=== PATIENT | male | born 1945 | race Caucasian/White ===

== ENCOUNTER 2023-08-30 12:40 | Inpatient (IN) | payer MEDICARE, OTHER, SELFPAY ==
[2023-08-30] VITALS (20 sets, daily range): BP systolic 74–113; BP diastolic 46–83; PULSE 101–127; RESP 24–33; TEMP 36.4–38.4; O2SAT 86–95; BMI 32.4
--- NOTE | 2023-08-30 13:13 | EKG12_ITS ---
Test Reason : FEVER Blood Pressure : / mmHG Vent. Rate : 126 BPM Atrial Rate : 126 BPM P-R Int : 176 ms QRS Dur : 132 ms QT Int : 310 ms P-R-T Axes : 000 014 170 degrees QTc Int : 448 ms Sinus tachycardia Left bundle branch block Abnormal ECG Confirmed by FABIAN NICOLE MD ([id number]), department editor STEPHANIE RAMIREZ ([id number]) on 09/07/2023 9:21:28 AM Referred By: CUATE Confirmed By:FABIAN NICOLE MD
--- NOTE | 2023-08-30 13:25 | EX.ED.DYSGE1 ---
HPI History of Present Illness Chief Complaint: Fever Informant: patient and spouse/S.O. Onset/Context/Timing Onset: Days (2) Context: Gradual Onset Timing: Continuous Associated Symptoms Associated Symptoms ED: cough Narrative Narrative: 77-year-old for 2 days has had vomiting, diarrhea, cough, and shortness of breath. He is not sure which came first, the vomiting or the cough/shortness of breath. is here to help and they are both not sure. He has had fevers at home. Also has had some headaches that started later, no sudden onset or thunderclap, and pain in the back of his neck that hurts more to move. He is feeling very malaised and weak all over. Denies any chest discomfort. No leg edema. Presents hypoxic to triage at 88% on room air he is not on home oxygen. Oxygen applied. No recent travel out of the area. No known sick contacts that they are aware of. [facility] Medical History Diabetes GERD (gastroesophageal reflux disease) Hypertension Home Medications atorvastatin 80 mg tablet 80 mg PO DAILY 08/30/23 [History Last Taken 08/30/23] glimepiride 4 mg tablet 4 mg PO DAILY 08/30/23 [History Last Taken 08/30/23] liraglutide 0.6 mg/0.1 mL (18 mg/3 mL) subcutaneous pen injector 1.2 mg subcut DAILY 08/30/23 [History Last Taken 08/30/23] metformin 1,000 mg tablet 1,000 mg PO BID 08/30/23 [History Last Taken 08/30/23] multivitamin (Daily Value tablet) 1 tab PO DAILY 08/30/23 [History Last Taken 08/30/23] omega-3 fatty acids 1,000 mg capsule (Super [place]-3) 1,000 mg PO DAILY 08/30/23 [History Last Taken 08/30/23] omeprazole 20 mg capsule,delayed release 20 mg PO DAILY 08/30/23 [History Last Taken 08/30/23] pioglitazone 45 mg tablet 45 mg PO DAILY 08/30/23 [History Last Taken 08/30/23] risankizumab-rzaa 150 mg/mL subcutaneous syringe (Skyrizi) 150 mg subcut .COMPLEX 08/30/23 [History Last Taken 06/17/23] tamsulosin 0.4 mg capsule 0.4 mg PO DAILY 08/30/23 [History Last Taken 08/29/23] valsartan 160 mg tablet (Diovan) 160 mg PO DAILY 08/30/23 [History Last Taken 08/30/23] Allergy/AdvReac Type Severity Reaction Status Date / Time No Known Allergies Allergy Verified 08/30/23 13:46 Social History Smoking Status: Never smoker ROS ROS ED Constitutional Constitutional ED: Reports body ache(s), chills, fatigue, fever(s), headache(s) and malaise Eyes Eyes: Denies change in vision or diplopia ENT ENT ED: Denies rhinorrhea or sore throat Cardiovascular Cardiovascular: Denies chest pain or palpitations Respiratory/Chest Respiratory/Chest: Reports cough, dyspnea and dyspnea on exertion Gastrointestinal Gastrointestinal: Reports diarrhea, nausea and vomiting; Denies abdominal pain Genitourinary Genitourinary ED: Denies dysuria or hematuria Musculoskeletal Musculoskeletal: Reports myalgias and neck pain; Denies back pain Integumentary Denies abscess or rash Neurologic Neurologic: Reports headache(s); Denies confusion, paresthesias, seizures, syncope or weakness Psychiatric Psychiatric: Denies anxiety or suicidal thoughts EXAM Physical Exam Const Vital Signs: 08/30/23 12:41 08/30/23 13:00 08/30/23 13:02 Temperature 97.5 F L Temperature Source Temporal Pulse Rate 127 H 126 H Respiratory Rate 24 H 32 H Respiratory Effort Short of Breath Accessory Muscle Use Respiratory Pattern Tachypnea Blood Pressure 109/81 H 97/53 L Blood Pressure Mean 90 67 Pulse Ox 88 93 Oxygen Delivery Method Room Air Nasal Cannula Oxygen Flow Rate (L/min) 2 08/30/23 13:40 08/30/23 14:29 Temperature 101.1 F H Temperature Source Oral Pulse Rate 124 H Respiratory Rate 33 H Respiratory Effort Respiratory Pattern Blood Pressure 113/83 H Blood Pressure Mean 93 Pulse Ox 90 Oxygen Delivery Method Nasal Cannula Nasal Cannula Oxygen Flow Rate (L/min) 6 Positive well nourished and well developed Constitutional Narrative: Malaised-appearing, no distress General Appearance ED: well developed and NAD HEENT Reports moist mucous membranes normocephalic and atraumatic Eyes PERRL and EOMs intact bilaterally Neck full ROM, no lymphadenopathy, supple and no JVD Chest Wall inspection of chest normal and palpation of chest normal Resp Resp Narrative: Mildly tachypneic but no respiratory distress. Bibasilar Rales. Cardio regular rate and regular rhythm Cardio Narrative: Very faint heart sounds Rate: tachycardic GI non-tender and non-distended Auscultation: normoactive bowel sounds Palpation: soft Back/Spine no CVA tenderness General Back: other FROM Extremity normal to inspection and no calf tenderness General Extremety ED: Negative for edema, pulses abnormal or tenderness General Extremity: Negative for edema or pulses abnormal Neuro oriented x3, CN's II-XII intact bilaterally and no sensory deficits noted Neuro Narrative: Needs help from myself and family both in order to just sit up in bed for pulmonary exam Sensorium / Orientation: awake and alert Motor Exam: general weakness Skin no rashes or lesions noted and no wounds Sepsis Attestation Sepsis Alert: Yes Sepsis Attestation: Agree w/Sepsis Date exam was performed: 08/30/23 Time exam was performed: 13:30 Possible Source of Sepsis: Pulmonary and GI tract/intra-abdominal Sepsis Organ Dysfunction Criteria Present: Creatinine > 2.0 mg/dL and Lactic Acid > 2 mmol/L Fluid Resuscitation Fluid resuscitation indicated?: Yes Fluid Resuscitation ordered: 30 ml/kg fluid bolus ordered Amount of fluid ordered: 2,600 (mild hypotension responded well to fluids before entire bolus completed) Sepsis Note Date exam was performed: 08/30/23 Time exam was performed: 15:04 Sepsis Attestation: Sepsis re-evaluation was performed Response to fluids: Fluid responsive hypotension MDM MDM MDM Narrative Medical decision making narrative: Patient appears ill, tachycardic, his initial blood pressure was 109/81 but now he is mildly hypotensive 97/53, and hypoxemic at 88% on room air. He is 93% on a nasal cannula and not in need of respiratory assistance at this time. Workup was obtained while we give him IV fluids, it does not appear to be in acute congestive heart failure nor does he have a history of that. He has acute kidney injury, leukocytosis, significant lactic acidosis that qualifies him for septic shock, and a 1 view chest x-ray that on my interpretation appears to show right lower lobe infiltrate. This could be consistent with either aspiration pneumonia, or a community-acquired pneumonia that is also making him vomit being near the diaphragm. I and covering for aspiration with Unasyn and Zithromax, 30 cc/kg IV fluid carlos alberto ordered, he was given Zofran and is feeling better and able to sip on some liquids but we will watch that carefully, and given his hypoxemia and illness plan is admission to the hospital. He did spike a fever of 101.1 which we are treating with Tylenol, consistent with since infection, his oxygen saturations did slip to 82% when nursing lied him down for something and got him back up and they were not able to get his saturations up without turning his oxygen up to 6 L. He is not breathing any worse, not in need of treatments right now which are held due to his tachycardia. Hopefully bring his fever down will help this as well as the fluids. His pressure has been improving with the fluids, therefore discussed with hospitalist we will admit him to PCU stepdown not requiring ICU at this time. He will be watched closely. Lab Data Attestation: I reviewed the patient's lab results. Labs: Laboratory Results - last 24 hr 08/30/23 08/30/23 12:50 14:25 WBC 12.0 H RBC 4.77 Hgb 13.3 Hct 40.5 MCV 84.9 MCH 27.9 MCHC 32.8 RDW Std Deviation 44.5 H RDW Coeff of Lesvia 14.4 Plt Count 191 MPV 10.3 Immature Gran % (Auto) 0.400 Neut % (Auto) 93.5 H Lymph % (Auto) 4.9 L Brown % (Auto) 0.7 Eos % (Auto) 0.0 Baso % (Auto) 0.5 Absolute Neuts (auto) 11.3 H Absolute Lymphs (auto) 0.59 L Nucleated RBC % 0 Differential Comment PT 16.9 H INR 1.4 APTT 33.3 Sodium 128 L Potassium 4.4 Chloride 92 L Carbon Dioxide 25.0 Anion Gap 11 BUN 60 H Creatinine 2.81 H Estim Creat Clear Calc 21.30 Est GFR (MDRD) Af Amer 28 L Est GFR (MDRD) Non-Af 23 L BUN/Creatinine Ratio 21.4 H Glucose 269 H Lactic Acid 4.8 H* Calcium 8.6 Total Bilirubin 1.00 AST 19 ALT 30 Alkaline Phosphatase 43 L Troponin I High Sens 17 Total Protein 7.2 Albumin 3.0 L Globulin 4.2 Albumin/Globulin Ratio 0.7 L Urine Color Yellow Urine Clarity Clear Urine pH 5.0 Ur Specific [place] 1.015 Urine Protein 30 H Urine Glucose (UA) Normal Urine Ketones Negative Urine Occult Blood 150 H Urine Nitrite Negative Urine Bilirubin Negative Urine Urobilinogen Normal Ur Leukocyte Esterase Negative Urine RBC 0-5 SEEN Urine WBC 0-5 SEEN Ur Squamous Epith Cells 0 SEEN Urine Bacteria 0 SEEN Hyaline Casts 0-5 SEEN Urine Mucus 0 SEEN Radiography Diagnostic Testing: Clinical Impression(s) from Imaging Studies Chest X-Ray 08/30/23 13:50 IMPRESSION: Right middle and lower lobe pneumonia. Questionable infiltrate versus atelectasis left lower lobe. Electronically Signed: Marcello Clemente MD at 14:08 EST , Rhythm Strip Rhythm Strip: Sinus Tach Rate: 126 Ectopy: None EKG Initial EKG: Attestation: I personally reviewed and interpreted this EKG as follows: Interpretation: No Acute Injury Pattern, Sinus Tachycardia and LBBB Prior EKG tracings: not available for review Prior: No Prior Management Discussion w/another healthcare provider: Hospitalist Critical Care Time Critical Care Time: Yes Critical care time (excluding procedures): 30-74 minutes (34 min), Including time spent:, Discussing w/Patient &/or Family/Policewoman, Discussing w/Consultants, Arranging Admission or Transfer and Performing Direct Patient Care at Bedside Discharge Plan Dx/Rx/DC Orders Clinical Impression: Nausea vomiting and diarrhea, Hypoxemia, Septic shock, Aspiration pneumonia, DEEDEE (acute kidney injury) Disposition Disposition: [facility] Care [facility]
[2023-08-30 13:35] LABS: Absolute Lymphocyte Count 0.59 X10^3/uL (0.83-4.51); Absolute Neutrophil Count 11.3 X10^3/uL (2.0-7.7); Basophil# 0.06 X10^3/uL; Basophil% 0.5 % (0-1); Hematocrit 40.5 % (40-54); Hemoglobin 13.3 g/dL (13.0-16.5); Lymphocyte # 0.59 X10^3/ul (0.83-4.51); Lymphocyte % 4.9 % (19-41); Mean Corp Hgb Conc 32.8 g/dL (32-36); Mean Corpuscular Hgb 27.9 pg (27.0-32.0); Mean Corpuscular Volume 84.9 fL (80-94); Mean Platelet Vol. 10.3 fl (6.2-12.0); Monocyte# 0.08 X10^3/uL; Monocyte% 0.7 % (0-10); NRBC Flagged by Analyzer 0 % (0-5); Neutrophil # 11.25 X10^3/uL (2.7-7.7); Neutrophil % 93.5 % (47-70); POSITIVE DIFFERENTIAL YES; POSITIVE MORPHOLOGY YES; Platelet Count 191 K/mm3 (150-450); RBC Distribution Width CV 14.4 % (11.6-14.6); RBC Distribution Width SD 44.5 fl (35.1-43.9); Red Blood Count 4.77 M/mm3 (4.6-6.2)
[2023-08-30 13:37] LABS: Differential Indicated SCAN CRITERIA MET
[2023-08-30 13:44] LABS: International Normalized Ratio 1.4; Prothrombin Time (Protime)PT. 16.9 SECONDS (11.7-14.9)
[2023-08-30 13:45] LABS: Partial Thromboplast Time 33.3 Seconds (24.1-36.2)
[2023-08-30] MEDS: 0.9% Normal Saline (1000mL) 1,000 ML 999 ML IV ×2 (13:46→18:14)
[2023-08-30] MEDS: Ondansetron 4 MG/2 ML Vial IV (13:46)
[2023-08-30 13:49] LABS: ALB/GLOB Ratio 0.7 RATIO (0.9-2.4); AST(SGOT) 19 U/L (15-37); Alanine Aminotransfer ALT/SGPT 30 U/L (16-61); Alkaline Phosphatase 43 U/L (45-117); Anion Gap 11 (5-15); BUN 60 mg/dL (7-18); BUN/Creat Ratio 21.4 RATIO (10-20); Calcium,Total 8.6 mg/dL (8.5-10.1); Chloride 92 mmol/L (98-107); Creatinine, Serum 2.81 mg/dL (0.70-1.30); EST Glomerular Filtration Rate 23 mL/min (>60); Est Glom Filt Rate - Afr Amer 28 mL/min (>60); Globulin 4.2 g/dL (2.2-4.2); Glucose 269 mg/dL (74-106); Potassium 4.4 mmol/L (3.5-5.1); Protein, Total 7.2 g/dL (6.4-8.2); Sodium Level 128 mmol/L (136-145); Troponin-I HS 17 pg/mL (3.0-78.0)
--- NOTE | 2023-08-30 13:50 | RAD_ITS ---
EXAM: XR CHEST, 1 VIEW CLINICAL INDICATION: sob, fever, n/v TECHNIQUE: Frontal view of the chest. COMPARISON: No relevant prior studies available. FINDINGS: LUNGS AND PLEURAL SPACES: Right middle and lower lobe pulmonary opacification consistent with pneumonia. Infiltrate or atelectasis at the left lung base. HEART: Normal heart size. MEDIASTINUM: No mediastinal or hilar mass. BONES/JOINTS: No acute abnormality. RAD/Chest 1 View (Portable) IMPRESSION: Right middle and lower lobe pneumonia. Questionable infiltrate versus atelectasis left lower lobe. Electronically Signed: Marcello Clemente MD at 14:08 EST ,
[2023-08-30 13:53] LABS: Lactic Acid 4.8 mmol/L (0.4-1.9)
[2023-08-30] MEDS: Ampicillin/Sulbactam 3 GM in 0.9% Normal Saline (100mL MB+) 100 ML IV (14:32)
[2023-08-30] MEDS: NORMAL SALINE 999 ML IV (14:32)
[2023-08-30 14:35] LABS: Bacteria 0 SEEN /hpf (None Seen); Mucous, Urine 0 SEEN /hpf (<or=2+)
[2023-08-30 14:36] LABS: Color, Urine Yellow (Yellow); Glucose, Dipstick Normal (Normal); Ketone-Dipstick Negative (Negative); Leukocyte Esterase-Dipstick Negative /ul (Negative); Nitrite-Dipstick Negative (Negative); Occult Blood-Urine 150 /ul (Negative); Protein-Dipstick 30 mg/dl (Negative); Specific Gravity, Urine 1.015 (1.002-1.030); Urine Bilirubin Dipstick Negative (Negative); Urine Clarity Clear (Clear); Urine Urobilinogen Normal (Normal)
[2023-08-30 14:42] LABS: Red Blood Cells-Urine 0-5 SEEN /hpf (0-5); Squamous Epithelial Cells - UA 0 SEEN /hpf (0-5); White Blood Cells 0-5 SEEN /hpf (0-5)
[2023-08-30 14:43] LABS: Hyaline Cast 0-5 SEEN /lpf (0-5)
[2023-08-30] MEDS: Acetaminophen 500 MG Tablet 1000 MG PO (14:52)
--- NOTE | 2023-08-30 15:00 | NURSING ---
PCU MOSTELLER SEPSIS, HYPOXEMIA, PNEUMONIA
[2023-08-30] MEDS: Azithromycin 500 MG in Dextrose 5%-Water (250mL Bag) 250 ML 250 MG IV (15:40)
--- NOTE | 2023-08-30 15:43 | PCM.HP.STD ---
HPI - General General Date of Admission: 08/30/23 Date of Service: 08/30/23 Chief Complaint: Shortness of breath HPI Narrative SEAN RIVAS, is a 77 M who presented to [facility] ED on 08/30/2023 with shortness of breath, cough, vomiting and diarrhea. Patient seen at bedside in the ED, present. Patient was satting in the low 90s on 4 L nasal cannula on my interview, no increased work of breathing noted. Patient did appear fatigued and flushed, but was otherwise conversing normally and in no acute distress. Patient states that he has started to develop symptoms about 3 to 4 days ago. He has not eaten or drank much at all over the past 3 days. He had some episodes of nausea with vomiting during that time. Also had several episodes of diarrhea. Patient then noted a cough over the last day or 2 with worsening shortness of breath. Has no history of aspiration but is concerned he may have aspirated at some point. Patient lives at home with his , is in fairly good health at baseline. No previous hospitalizations at [facility]. Patient currently denies fevers or chills, chest pain, abdominal pain or discomfort. Denies any lightheadedness or dizziness. Denies any shortness of breath at rest. Reports a cough with intermittent sputum production. Denies any other acute concerns this time. [facility] Medical History Diabetes GERD (gastroesophageal reflux disease) Hypertension Home Medications atorvastatin 80 mg tablet 80 mg PO DAILY 08/30/23 [History Last Taken 08/30/23] glimepiride 4 mg tablet 4 mg PO DAILY 08/30/23 [History Last Taken 08/30/23] liraglutide 0.6 mg/0.1 mL (18 mg/3 mL) subcutaneous pen injector 1.2 mg subcut DAILY 08/30/23 [History Last Taken 08/30/23] metformin 1,000 mg tablet 1,000 mg PO BID 08/30/23 [History Last Taken 08/30/23] multivitamin (Daily Value tablet) 1 tab PO DAILY 08/30/23 [History Last Taken 08/30/23] omega-3 fatty acids 1,000 mg capsule (Super [place]-3) 1,000 mg PO DAILY 08/30/23 [History Last Taken 08/30/23] omeprazole 20 mg capsule,delayed release 20 mg PO DAILY 08/30/23 [History Last Taken 08/30/23] pioglitazone 45 mg tablet 45 mg PO DAILY 08/30/23 [History Last Taken 08/30/23] risankizumab-rzaa 150 mg/mL subcutaneous syringe (Skyrizi) 150 mg subcut .COMPLEX 08/30/23 [History Last Taken 06/17/23] tamsulosin 0.4 mg capsule 0.4 mg PO DAILY 08/30/23 [History Last Taken 08/29/23] valsartan 160 mg tablet (Diovan) 160 mg PO DAILY 08/30/23 [History Last Taken 08/30/23] Allergy/AdvReac Type Severity Reaction Status Date / Time No Known Allergies Allergy Verified 08/30/23 13:46 Social History Smoking Status: Never smoker ROS Constitutional Constitutional: Reports fatigue, fever(s) and malaise; Denies chills or weakness Eyes Eyes: Denies change in vision Cardiovascular Cardiovascular: Reports dyspnea on exertion; Denies chest pain, edema, lightheadedness, rapid heart rate or syncope Respiratory/Chest Respiratory/Chest: Reports productive cough and shortness of breath with exertion; Denies shortness of breath at rest or wheezing Gastrointestinal Gastrointestinal: Reports diarrhea, nausea and vomiting; Denies abdominal pain or constipation Genitourinary Genitourinary: Denies dysuria Musculoskeletal Musculoskeletal: Denies arthralgias or back pain Neurologic Neurologic: Denies confusion, dizziness, focal weakness, headache(s), numbness or paresthesias Vital Signs Vital Signs Vital Signs: 08/30/23 12:41 08/30/23 13:00 08/30/23 13:02 Temperature 97.5 F L Temperature Source Temporal Pulse Rate 127 H 126 H Respiratory Rate 24 H 32 H Respiratory Effort Short of Breath Accessory Muscle Use Respiratory Pattern Tachypnea Blood Pressure 109/81 H 97/53 L Blood Pressure Mean 90 67 Pulse Ox 88 93 Oxygen Delivery Method Room Air Nasal Cannula Oxygen Flow Rate (L/min) 2 08/30/23 13:40 08/30/23 14:29 08/30/23 15:00 Temperature 101.1 F H Temperature Source Oral Pulse Rate 124 H 121 H Respiratory Rate 33 H 30 H Respiratory Effort Respiratory Pattern Blood Pressure 113/83 H 104/60 Blood Pressure Mean 93 74 Pulse Ox 90 92 Oxygen Delivery Method Nasal Cannula Nasal Cannula Nasal Cannula Oxygen Flow Rate (L/min) 6 2 08/30/23 15:00 08/30/23 15:14 08/30/23 15:15 Temperature 99.2 F H Temperature Source Oral Pulse Rate 121 H Respiratory Rate 30 H 33 H 30 H Respiratory Effort Respiratory Pattern Blood Pressure 104/60 Blood Pressure Mean 74 Pulse Ox 92 90 92 Oxygen Delivery Method Nasal Cannula Nasal Cannula Nasal Cannula Oxygen Flow Rate (L/min) 2 2 4 Weight Weight: 89.63 kg Body Mass Index (BMI) 30.0 Physical Exam Const alert, oriented x3 and no apparent distress Constitutional Narrative: Pleasant elderly male, obese, sitting comfortably in bed, conversing normally, no acute distress. Fatigued appearing and moderately flushed in the face. General Appearance: cooperative and comfortable HEENT normocephalic, head/scalp atraumatic, hearing grossly normal bilaterally, nasal mucous membranes and turbinates normal and moist oral mucous membranes Eyes PERRL, EOMs intact bilaterally and conjunctivae normal Neck full ROM, no lymphadenopathy and supple Lymph Lymphatic: no lymphadenopathy noted Chest inspection of chest normal Resp Resp Narrative: Decreased breath sounds bilaterally throughout, worse on right. No wheezing or crackles noted. Satting in low 90s on 4 L nasal cannula, no increased work of breathing noted. Cardio no murmurs and peripheral pulses 2+ throughout Cardio Narrative: Sinus tachycardia. GI normal to inspection, nondistended, normoactive bowel sounds, soft to palpation, non-tender and non-distended Back/Spine normal ROM Extremity normal to inspection, full ROM and no pedal edema Skin no rashes or lesions noted Neuro moves all extremities and no focal motor deficits Speech: speech normal Psych mental status grossly normal Results Lab / Micro Data 08/30/23 12:50 08/30/23 12:50 Labs: Laboratory Results - last 24 hr 08/30/23 12:50: WBC 12.0 H, RBC 4.77, Hgb 13.3, Hct 40.5, MCV 84.9, MCH 27.9, MCHC 32.8, RDW Std Deviation 44.5 H, RDW Coeff of Lesvia 14.4, Plt Count 191, MPV 10.3, Immature Gran % (Auto) 0.400, Neut % (Auto) 93.5 H, Lymph % (Auto) 4.9 L, Avery % (Auto) 0.7, Eos % (Auto) 0.0, Baso % (Auto) 0.5, Absolute Neuts (auto) 11.3 H, Absolute Lymphs (auto) 0.59 L, Nucleated RBC % 0, Differential Comment , PT 16.9 H, INR 1.4, APTT 33.3, Sodium 128 L, Potassium 4.4, Chloride 92 L, Carbon Dioxide 25.0, Anion Gap 11, BUN 60 H, Creatinine 2.81 H, Estim Creat Clear Calc 21.30, Est GFR (MDRD) Af Amer 28 L, Est GFR (MDRD) Non-Af 23 L, BUN/Creatinine Ratio 21.4 H, Glucose 269 H, Lactic Acid 4.8 H*, Calcium 8.6, Total Bilirubin 1.00, AST 19, ALT 30, Alkaline Phosphatase 43 L, Troponin I High Sens 17, Total Protein 7.2, Albumin 3.0 L, Globulin 4.2, Albumin/Globulin Ratio 0.7 L 08/30/23 14:25: Urine Color Yellow, Urine Clarity Clear, Urine pH 5.0, Ur Specific [place] 1.015, Urine Protein 30 H, Urine Glucose (UA) Normal, Urine Ketones Negative, Urine Occult Blood 150 H, Urine Nitrite Negative, Urine Bilirubin Negative, Urine Urobilinogen Normal, Ur Leukocyte Esterase Negative, Urine RBC 0-5 SEEN, Urine WBC 0-5 SEEN, Ur Squamous Epith Cells 0 SEEN, Urine Bacteria 0 SEEN, Hyaline Casts 0-5 SEEN, Urine Mucus 0 SEEN Micro: Microbiology 08/30/23 13:50 Nasal Secretion SARS-CoV-2 & FLU Antigen (Rapid) - Final Rhythm Strip Rhythm Strip: Sinus Tach Rate: 126 Ectopy: None Imagaing Radiology Impression Chest X-Ray 08/30/23 13:50 IMPRESSION: Right middle and lower lobe pneumonia. Questionable infiltrate versus atelectasis left lower lobe. Electronically Signed: Marcello Clemente MD at 14:08 EST , Assessment & Plan Assessment/Plan (1) DEEDEE (acute kidney injury): (2) Septic shock: (3) Streptococcal pneumonia: (4) Acute hypoxic respiratory failure: PLAN: Plan Patient is a 77-year-old male who presented to [facility] ED on 08/30/2023 with shortness of breath, cough, vomiting and diarrhea. 1. Septic shock suspected secondary to Strep pneumonia Febrile to 101.1F, tachycardic, hypotensive, increased respiratory rate, WBC count 12.0 K, lactic acid 4.8 on admit with presumed source of pneumonia. Chest x-ray showed right middle and lower lobe pneumonia. Strep pneumonia urine antigen positive. Initially given 2 L normal saline in the ED with improvement in blood pressure. However, BP again dropped on the floor, given another 1 L normal saline without much improvement (30 cc/kg is ~2700 ml). Patient notably did report worsening both upper and lower back pain over the last few days; CT C/T/L-spine without contrast showed no evidence of spinal abscess. ? Initially admitted under inpatient status to PCU. Transferred to ICU on evening of 08/30 for septic shock. Pool Hall Inspector consulted. Will narrow antibiotics to IV ceftriaxone. Follow-up blood cultures, sputum culture. Trend CBC. Levophed as needed to maintain MAP > 65; does not have central line or arterial line in place at this time. 2. Acute hypoxic respiratory failure Presumed secondary to strep pneumonia. No history of lung disease, does not wear oxygen at baseline. Chest x-ray as noted above. ? Pool Hall Inspector consulted. Currently requiring up to 12 L high flow nasal cannula to maintain oxygen saturations greater than 90%. Wean supplemental oxygen as able. Continue antibiotics as above. Incentive spirometry at bedside. 3. DEEDEE Likely prerenal in setting of septic shock. Patient does have known history of BPH, reports adequate urine output recently, no history of urinary retention requiring Mercer catheterization. Creatinine 2.81, BUN 60 on admit. No baseline creatinine available but patient denies any history of kidney disease. ? Follow-up a.m. BMP. Monitor urine output. Urine sodium and creatinine ordered to calculate FeNa. Renal/bladder ultrasound ordered. Avoid nephrotoxins. 4. Hyponatremia Sodium 128 on admit. Chloride 92. Suspected secondary to recent poor p.o. intake due to pneumonia infection. S/p 3 L normal saline on admission for volume resuscitation. ? Follow-up a.m. BMP. Chronic medical conditions: ? Type 2 diabetes mellitus: Home regimen of metformin 1000 mg twice daily, liraglutide 1.2 mg daily, glimepiride 4 mg daily, pioglitazone 45 mg daily. BG 190 on admit. Will start sliding scale insulin with high?medium dosing for now, adjust regimen as needed. ? Hyperlipidemia: Continue home statin. ? Hypertension: Holding home valsartan. ? BPH: Continue home Flomax. ? GERD: Continue home PPI. DVT prophylaxis: Heparin subcu CODE STATUS: Full code, verified Expected disposition: TBD Total clinical time spent by myself addressing the patient's medical issues, reviewing all the data, and collaborating with patient's care team: 75 minutes. Charges/Coding Visit Charges Inpatient E&M: 20220 Init Hosp L3
[2023-08-30 16:17] LABS: Urine Sodium 34 mmol/L (Not Establ.)
[2023-08-30 16:19] LABS: BNP,B-Type NATRIURETIC PEPTIDE 59.3 pg/mL (0-100)
[2023-08-30] MEDS: Tamsulosin HCl 0.4 MG Capsule 0.400000000000000022 MG PO (16:55)
[2023-08-30] MEDS: Insulin Lispro 100 UNIT/ML INSULN.PEN SC ×2 (16:56→20:36)
[2023-08-30 17:02] LABS: Troponin-I HS 19 pg/mL (3.0-78.0)
--- NOTE | 2023-08-30 17:13 | CT_ITS ---
INDICATION: r/o epidural abscess EXAMINATION: CT LUMBAR SPINE - CT Spine Lumbar W/O Contrast Injection TECHNIQUE: Helically acquired images were obtained of the lumbar spine. 2D reformats were reviewed. A radiation dose optimization technique was used for this scan. IV Contrast dosage and agent: None. RADIATION DOSAGE (If Supplied By Facility): CTDIvol = ( 48.72 ) mGy, DLP = ( 1562.00 ) mGycm COMPARISON: No relevant prior comparison study available FINDINGS: VERTEBRAE: No fracture or traumatic subluxation. Vertebral body heights maintained. Slight retrolisthesis of L1 over L2. No discrete lytic or blastic abnormality observed. Normal alignment. Confluent bulky bridging osteophytes from the lower thoracic spine extending to L2, compatible with diffuse idiopathic skeletal hyperostosis. DISCS and SPINAL CANAL: There is loss of disc space height associated endplate osteophytes and diffuse disc bulges throughout the lumbar spine, bulky hypertrophic facet arthropathy throughout leading to varying degrees of foraminal narrowing throughout the lumbar spine. There is at least moderate central canal stenosis at L4-5 and L3-4. No evidence of any epidural abscess. PARASPINAL SOFT TISSUES: No paraspinal abnormalities. VISUALIZED ABDOMEN: Visualized abdominal aorta is not dilated. There is no retroperitoneal adenopathy. Bilateral lower lobe pneumonia redemonstrated. CT/Spine Lumbar without Contrast IMPRESSION: * No evidence of epidural abscess. * No evidence of acute lumbar spinal fracture or traumatic malalignment. * Lumbar spondylosis with at least moderate central canal stenosis at L3-4 and moderate to severe central canal stenosis at L4-5. * Incidental finding of multilobar pneumonia. Electronically Signed: Preet Walter MD at 18:32 EST ,
--- NOTE | 2023-08-30 17:13 | CT_ITS ---
INDICATION: r/o epidural abscess EXAMINATION: CT CERVICAL SPINE - CT Spine Cervical W/O Contrast Injection TECHNIQUE: Helically acquired images were obtained of the cervical spine. 2D reformatted images were reviewed. A radiation dose optimization technique was used for this scan. IV Contrast dosage and agent: None. RADIATION DOSAGE (If Supplied By Facility): CTDIvol = ( 23.67 ) mGy, DLP = ( 539.53 ) mGycm COMPARISON: No relevant prior comparison study available FINDINGS: VERTEBRAE: No fracture or traumatic subluxation. No discrete lytic or blastic abnormality. Normal alignment. Normal craniocervical junction and cervicothoracic junction. DISCS and SPINAL CANAL: There is multilevel disc space narrowing with endplate osteophyte formation and facet arthropathy. No critical stenosis. Slight degenerative anterolisthesis of C2 over C3, C3 over C4 and C4 over C5. NECK SOFT TISSUES: No evidence of epidural abscess. No prevertebral soft tissue swelling. There is no cervical adenopathy. LUNG APICES: Clear. CT/Spine Cervical without Contras IMPRESSION: No evidence of epidural abscess within the cervical spine. No evidence of acute cervical spinal fracture or spondylolisthesis. Electronically Signed: Preet Walter MD at 18:25 EST Reading Location ID and State: [facility] / [place] Tel , Service support ,
--- NOTE | 2023-08-30 17:13 | CT_ITS ---
INDICATION: r/o epidural abscess EXAMINATION: CT THORACIC SPINE - CT Spine Thoracic W/O Contrast Injection TECHNIQUE: Helically acquired images were obtained of the thoracic spine. 2D reformats were reviewed. A radiation dose optimization technique was used for this scan. IV Contrast dosage and agent: None. RADIATION DOSAGE (If Supplied By Facility): CTDIvol = ( 38.06 ) mGy, DLP = ( 1448.11 ) mGycm COMPARISON: No relevant prior comparison study available FINDINGS: VERTEBRAE: No fracture. No discrete lytic or blastic abnormality observed. Confluent bulky bridging osteophytes present throughout the mid and lower thoracic spine compatible with diffuse idiopathic skeletal hyperostosis. VERTEBRAL ALIGNMENT: Unremarkable. There is preservation of the normal thoracic kyphosis. DISCS: Disc heights are preserved. No significant foraminal or central canal stenosis. PARASPINAL SOFT TISSUES: No paraspinal or epidural abscess evident. VISUALIZED THORAX: Dense consolidation within bilateral lower lobes, right greater than left with accompanying air bronchograms. Small moderate hiatal hernia. Normal caliber aorta. Subcarinal mediastinal lymphadenopathy present, presumably reactive. CT/Spine Thoracic without Contras IMPRESSION: * No epidural or paraspinal abscess evident. * No evidence of acute thoracic spinal fracture or traumatic malalignment. * Diffuse idiopathic skeletal hyperostosis. * Incidental finding of a multilobar pneumonia within the right and left lower lobes. * Mediastinal lymphadenopathy, presumably reactive. Electronically Signed: Preet Walter MD at 18:28 [facility] ,
[2023-08-30 17:31] LABS: Reflex Lactate? Y
[2023-08-30] MEDS: Piperacil/Tazobactam 4.5 GM in 0.9% Normal Saline (100mL MB+) 100 ML IV (17:38)
[2023-08-30 18:16] LABS: Lactic Acid 2.9 mmol/L (0.4-1.9)
[2023-08-30 18:16] LABS: Bedside Glucose 191 mg/dL (74-106)
[2023-08-30] MEDS: Vancomycin HCl 2,000 MG in 0.9% Normal Saline (500mL Bag) 500 ML 250 MG IV (18:59)
[2023-08-30] MEDS: 0.9% Saline Lock 10 ML Syringe IV (19:00)
--- NOTE | 2023-08-30 19:16 | PCM.RX.CS ---
Consult Antibiotic Management Pharmacy has been consulted to manage selected antiobiotic: Vancomycin Type of Intervention Type of Consult: New start Suspected Infection Suspected Infection: Sepsis Labs Labs: Sodium 128 mmol/L (136-145) L 08/30/23 12:50 Potassium 4.4 mmol/L (3.5-5.1) 08/30/23 12:50 Chloride 92 mmol/L (98-107) L 08/30/23 12:50 Carbon Dioxide 25.0 mmol/L (21.0-32.0) 08/30/23 12:50 Anion Gap 11 (5-15) 08/30/23 12:50 BUN 60 mg/dL (7-18) H 08/30/23 12:50 Creatinine 2.81 mg/dL (0.70-1.30) H 08/30/23 12:50 Est GFR (MDRD) Af Amer 28 mL/min (>60) L 08/30/23 12:50 Est GFR (MDRD) Non-Af 23 mL/min (>60) L 08/30/23 12:50 BUN/Creatinine Ratio 21.4 RATIO (10-20) H 08/30/23 12:50 Glucose 269 mg/dL (74-106) H 08/30/23 12:50 Microbiology Microbiology: Microbiology 08/30/23 13:50 Nasal Secretion SARS-CoV-2 & FLU Antigen (Rapid) - Final Dosing Weight Weight used for dosin.2 kg Estimated Creatinine Clearance Estimated Creatinine Clearance: 23.3 Goal Trough Goal Trough: 15-20 mcg/mL Pharmacy Plan for Drug Dosing Pharmacy Plan for Drug Dosing: Pharmacy Service will continue to monitor and adjust dosing as required. Follow-Up Labs Follow-Up Labs: Trough: Vancomycin Date/Time Labs Ordered Labs to be done on [date and time ordered]: 09/01/23 @7513
--- NOTE | 2023-08-30 20:01 | NURSING ---
Report called to Sandee MARKETING OUTREACH COORDINATOR. Patient to transfer to CVICU 202 at this time.
--- NOTE | 2023-08-30 20:07 | NURSING ---
Notified ICU traveling secretary that this RN tried to call patients , Cleo to notify her that patient was being moved to the ICU. Phone number listed for was disconnected and secondary cell phone number listed had a generic voicemail. Only other number listed was for patient's daughter, unsure if she is aware of patient's admission.
[2023-08-30] MEDS: Piperacil/Tazobactam 3.375 GM in 0.9% Normal Saline (50mL MB+) 50 ML IV (20:35)
[2023-08-30] MEDS: Atorvastatin Calcium 80 MG Tablet PO (20:36)
[2023-08-30] MEDS: Heparin Injection (Vial) 5,000 UNIT/ML VIAL 5000 UNIT SC (20:36)
[2023-08-30 20:59] LABS: Bedside Glucose 190 mg/dL (74-106)
[2023-08-31] VITALS (29 sets, daily range): BP systolic 87–131; BP diastolic 51–78; PULSE 88–109; RESP 18–31; TEMP 36.4–37.2; O2SAT 90–96; BMI 33.1
--- NOTE | 2023-08-31 02:00 | US_ITS ---
INDICATION: hydronephrosis EXAMINATION: Ultrasound US Kidney(s) complete (eg, kidneys and bladder) TECHNIQUE: Wills scale and color doppler images were obtained of the kidneys. COMPARISON: None. FINDINGS: RIGHT KIDNEY: 10.6 cm length. There is no hydronephrosis. No shadowing calculus, focal lesion or perinephric collection is demonstrated. LEFT KIDNEY: 11.9 cm length. There is no hydronephrosis. No shadowing calculus, focal lesion or perinephric collection is demonstrated. URINARY BLADDER: Distended. Bladder volume 340 mL. Bilateral ureteral jets were visualized. US/Kidney and Bladder IMPRESSION: Unremarkable study. Electronically Signed: Richelle Francis MD at 8:19 EST ,
[2023-08-31] MEDS: Acetaminophen 325 MG Tablet 650 MG PO ×2 (04:18→20:31)
[2023-08-31] MEDS: 0.9% Saline Lock 10 ML Syringe IV ×3 (04:19→12:24)
[2023-08-31 04:23] LABS: Hematocrit 30.5 % (40-54); Hemoglobin 9.8 g/dL (13.0-16.5); Mean Corp Hgb Conc 32.1 g/dL (32-36); Mean Corpuscular Hgb 27.6 pg (27.0-32.0); Mean Corpuscular Volume 85.9 fL (80-94); Mean Platelet Vol. 10.9 fl (6.2-12.0); Platelet Count 172 K/mm3 (150-450); RBC Distribution Width CV 14.5 % (11.6-14.6); RBC Distribution Width SD 45.3 fl (35.1-43.9); Red Blood Count 3.55 M/mm3 (4.6-6.2); White Blood Count 8.5 K/mm3 (4.4-11.0)
[2023-08-31 04:55] LABS: Anion Gap 7 (5-15); BUN 53 mg/dL (7-18); BUN/Creat Ratio 27.7 RATIO (10-20); Calcium,Total 6.4 mg/dL (8.5-10.1); Chloride 105 mmol/L (98-107); Creatinine, Serum 1.91 mg/dL (0.70-1.30); EST Glomerular Filtration Rate 36 mL/min (>60); Est Glom Filt Rate - Afr Amer 44 mL/min (>60); Estimated Creatinine Clearance 29.23 ml/min; Glucose 175 mg/dL (74-106); Sodium Level 133 mmol/L (136-145)
[2023-08-31] MEDS: 0.9% Normal Saline (250mL Bag) 250 ML 15 ML IV (08:19)
[2023-08-31] MEDS: Calcium Gluconate IV 2 GM in 0.9% Normal Saline (100mL Bag) 100 ML IV (08:19)
[2023-08-31] MEDS: Insulin Lispro 100 UNIT/ML INSULN.PEN SC ×4 (08:24→20:37)
--- NOTE | 2023-08-31 08:34 | EX.PCM.CONCC ---
Assessment & Plan Assessment/Plan (1) Streptococcal pneumonia: (2) DEEDEE (acute kidney injury): (3) Acute hypoxic respiratory failure: PLAN: Plan RECOMMENDATIONS: 1. Challenge with fluid bolus if hypotensive 2. Continue empiric antibiotics pending finalization of cultures 3. Wean oxygen as tolerated 4. Attempt to find baseline renal numbers 5. Obtain echocardiogram if pressors/BiPAP are required IMPRESSIONS: 1. Sepsis secondary to pneumococcal pneumonia Patient initially was fluid responsive. Patient does have marginal oxygen saturations at this time, but CT scan shows bilateral patchy infiltrates. Cannot exclude the need for pressors. Patient does have evidence of endorgan damage with acute kidney injury and respiratory failure. Lactate is improved. Patient's urine and blood are both showing Gram stains consistent with pneumococcal sepsis. 2. Acute hypoxic respiratory failure secondary to pneumococcal pneumonia Patient does not carry any previous lung conditions. Okay to hold off on any steroids at this time and less patient is placed on multiple pressors. Unclear if bronchodilators will be overly helpful given a lack of obstructive lung disease. If patient develops clinical wheezing, as needed bronchodilators can be added. Wean oxygen as tolerated. If patient requires additional intervention such as BiPAP or pressors, will likely get an echocardiogram to see if there is a Cardiologic component. 3. Acute kidney injury secondary to problems 1 and 2 Unclear baseline. Patient does have hypertension and diabetes, so chronic kidney disease cannot be excluded. Patient appears to be fluid responsive at this time. There is no indication for renal replacement therapy at this time. Will hold off on any nephrology consult as patient appears to be improving. Obtaining baseline records would be helpful. 4. Advanced age/diabetes/hypertension/BPH/GERD Complicates care, management, recovery and prognosis. Hold losartan secondary to marginal blood pressures and problem #3. Could not exclude the need for a Mercer catheter, but renal ultrasound was unremarkable. Patient is a verified full code. HPI Consult Data Date of Consult: 08/31/23 HPI Narrative Reason for Consultation: Hypoxic respiratory failure HPI Narrative: SEAN RIVAS is a 77 M, with past medical history listed below, who presents to [facility] on 08/30/2023 secondary to progressive shortness of breath and cough. Patient also had some episodes of vomiting and diarrhea. Patient did have subjective fevers at home along with some headaches. Patient reportedly had had some neck pain that he attributed with his cough. Patient did not report any lower extremity edema. On presentation to the emergency room, patient was noted to be 88% on room air and does not have supplemental oxygen at baseline. Patient denied any recent travel or sick contacts. In the ER, patient was tachycardic at 127 bpm. Patient was also tachypneic as high as 33 breaths/min. Patient required 6 L nasal cannula to maintain saturations. Laboratory data showed a white blood cell count of 12, hemoglobin of 13.3 and platelet count of 191. INR was slightly elevated at 1.4 and chemistry showed a bicarbonate of 25 with a creatinine of 2.81 with a BUN of 60. Glucose was elevated at 269 and lactate was elevated at 4.8. UA was unremarkable. Chest x-ray showed a right middle and lower lobe infiltrate and EKG confirmed sinus tachycardia. Patient was initiated on antibiotics and then admitted to the regular floor. Overnight, patient had to be transferred to the intensive care unit secondary to progressive hypoxia. Patient currently requiring 10 L nasal cannula maintain saturations. Patient also treated with sepsis fluids and received 3.4 L of fluid. Patient subjectively feels much improved this morning compared to previous. Patient is not reporting any hemoptysis or nausea on my evaluation. Patient has had a pneumococcal antigen come back positive along with a urine and blood culture showing gram-positive cocci Patient does not have any history of previous renal or pulmonary problems that he is aware of. Patient has never been a smoker. Patient does have diabetes and reports fair control. Patient does have BPH at baseline, but is not reporting any dysuria. Patient does have urinary frequency, which she states is normal for him. Review of systems otherwise negative from a constitutional, HEENT, respiratory, cardiovascular, GI, genitourinary, musculoskeletal, skin, neurologic, psychiatric and hematologic system unless stated above. [facility] Medical History Diabetes GERD (gastroesophageal reflux disease) Hypertension Home Medications atorvastatin 80 mg tablet 80 mg PO DAILY 08/30/23 [History Last Taken 08/30/23] glimepiride 4 mg tablet 4 mg PO DAILY 08/30/23 [History Last Taken 08/30/23] liraglutide 0.6 mg/0.1 mL (18 mg/3 mL) subcutaneous pen injector 1.2 mg subcut DAILY 08/30/23 [History Last Taken 08/30/23] metformin 1,000 mg tablet 1,000 mg PO BID 08/30/23 [History Last Taken 08/30/23] multivitamin (Daily Value tablet) 1 tab PO DAILY 08/30/23 [History Last Taken 08/30/23] omega-3 fatty acids 1,000 mg capsule (Super [place]ague-3) 1,000 mg PO DAILY 08/30/23 [History Last Taken 08/30/23] omeprazole 20 mg capsule,delayed release 20 mg PO DAILY 08/30/23 [History Last Taken 08/30/23] pioglitazone 45 mg tablet 45 mg PO DAILY 08/30/23 [History Last Taken 08/30/23] risankizumab-rzaa 150 mg/mL subcutaneous syringe (Skyrizi) 150 mg subcut .COMPLEX 08/30/23 [History Last Taken 06/17/23] tamsulosin 0.4 mg capsule 0.4 mg PO DAILY 08/30/23 [History Last Taken 08/29/23] valsartan 160 mg tablet (Diovan) 160 mg PO DAILY 08/30/23 [History Last Taken 08/30/23] Allergy/AdvReac Type Severity Reaction Status Date / Time No Known Allergies Allergy Verified 08/30/23 13:46 Social History Smoking Status: Never smoker ROS ROS Narrative See HPI Physical Exam Const alert, oriented x3 and no apparent distress Constitutional Narrative: No conversational dyspnea General Appearance: cooperative HEENT normocephalic, head/scalp atraumatic and moist oral mucous membranes Eyes PERRL, EOMs intact bilaterally and conjunctivae normal Eyes Narrative: Glasses in place Neck full ROM, no lymphadenopathy and supple Lymph Lymphatic: no lymphadenopathy noted Chest inspection of chest normal Resp Auscultation: rhonchi; Negative for rales or wheezes Cardio regular rhythm, S1 normal heart sound, S2 normal heart sound, no murmurs, no rub, no gallops and peripheral pulses 2+ throughout Rate: tachycardic GI normal to inspection, nondistended, normoactive bowel sounds, soft to palpation, non-tender and non-distended Extremity normal to inspection, full ROM and no pedal edema Skin no rashes or lesions noted Neuro moves all extremities and no focal motor deficits Speech: speech normal Psych mental status grossly normal Medical Records Data Attestation: I reviewed the patient's medical records Medical records narrative: No baseline creatinine available for review Lab / Micro Data Attestation: I reviewed the patient's lab results. 08/31/23 04:15 08/31/23 04:15 Labs: Laboratory Results - last 24 hr 08/30/23 12:50: WBC 12.0 H, RBC 4.77, Hgb 13.3, Hct 40.5, MCV 84.9, MCH 27.9, MCHC 32.8, RDW Std Deviation 44.5 H, RDW Coeff of Lesvia 14.4, Plt Count 191, MPV 10.3, Immature Gran % (Auto) 0.400, Neut % (Auto) 93.5 H, Lymph % (Auto) 4.9 L, [place] % (Auto) 0.7, Eos % (Auto) 0.0, Baso % (Auto) 0.5, Absolute Neuts (auto) 11.3 H, Absolute Lymphs (auto) 0.59 L, Nucleated RBC % 0, Differential Comment , PT 16.9 H, INR 1.4, APTT 33.3, Sodium 128 L, Potassium 4.4, Chloride 92 L, Carbon Dioxide 25.0, Anion Gap 11, BUN 60 H, Creatinine 2.81 H, Estim Creat Clear Calc 21.30, Est GFR (MDRD) Af Amer 28 L, Est GFR (MDRD) Non-Af 23 L, BUN/Creatinine Ratio 21.4 H, Glucose 269 H, Lactic Acid 4.8 H*, Calcium 8.6, Total Bilirubin 1.00, AST 19, ALT 30, Alkaline Phosphatase 43 L, Troponin I High Sens 17, B-Natriuretic Peptide 59.3, Total Protein 7.2, Albumin 3.0 L, Globulin 4.2, Albumin/Globulin Ratio 0.7 L 08/30/23 14:25: Urine Color Yellow, Urine Clarity Clear, Urine pH 5.0, Ur Specific [place] 1.015, Urine Protein 30 H, Urine Glucose (UA) Normal, Urine Ketones Negative, Urine Occult Blood 150 H, Urine Nitrite Negative, Urine Bilirubin Negative, Urine Urobilinogen Normal, Ur Leukocyte Esterase Negative, Urine RBC 0-5 SEEN, Urine WBC 0-5 SEEN, Ur Squamous Epith Cells 0 SEEN, Urine Bacteria 0 SEEN, Hyaline Casts 0-5 SEEN, Urine Mucus 0 SEEN, Ur Random Sodium 34, Urine Creatinine 160.00 08/30/23 16:23: POC Glucose 191 H 08/30/23 16:34: Troponin I High Sens 19 08/30/23 17:39: Lactic Acid 2.9 H* 08/30/23 20:34: POC Glucose 190 H 08/31/23 04:15: WBC 8.5, RBC 3.55 L, Hgb 9.8 L, Hct 30.5 L, MCV 85.9, MCH 27.6, MCHC 32.1, RDW Std Deviation 45.3 H, RDW Coeff of Lesvia 14.5, Plt Count 172, MPV 10.9, Sodium 133 L, Potassium 4.0, Chloride 105, Carbon Dioxide 21.0, Anion Gap 7, BUN 53 H, Creatinine 1.91 H, Estim Creat Clear Calc 29.23, Est GFR (MDRD) Af Amer 44 L, Est GFR (MDRD) Non-Af 36 L, BUN/Creatinine Ratio 27.7 H, Glucose 175 H, Calcium 6.4 L* Micro: Microbiology 08/30/23 13:47 Blood Culture (Wb) - Anticubital Left Blood Culture - Preliminary 08/30/23 13:00 Blood Culture (Wb) - Anticubital Right Blood Culture - Preliminary 08/30/23 16:45 Mucosa - Nose Respiratory Panel (PCR) - Final 08/30/23 14:25 Urine, Clean Catch Legionella Antigen - Final 08/30/23 14:25 Urine, Clean Catch Streptococcus pneumoniae Antigen (M - Final Streptococcus pneumonia Ag 08/30/23 13:50 Nasal Secretion SARS-CoV-2 & FLU Antigen (Rapid) - Final Rhythm Strip Rhythm Strip: Sinus Tach Rate: 100 Ectopy: None Imagaing Radiology Impression Chest X-Ray 08/30/23 13:50 IMPRESSION: Right middle and lower lobe pneumonia. Questionable infiltrate versus atelectasis left lower lobe. Electronically Signed: Marcello Clemente MD at 14:08 EST , Cervical Spine CT 08/30/23 17:13 IMPRESSION: No evidence of epidural abscess within the cervical spine. No evidence of acute cervical spinal fracture or spondylolisthesis. Electronically Signed: Preet Walter MD at 18:25 EST , Lumbar Spine CT 08/30/23 17:13 IMPRESSION: * No evidence of epidural abscess. * No evidence of acute lumbar spinal fracture or traumatic malalignment. * Lumbar spondylosis with at least moderate central canal stenosis at L3-4 and moderate to severe central canal stenosis at L4-5. * Incidental finding of multilobar pneumonia. Electronically Signed: Preet Walter MD at 18:32 EST , Thoracic Spine CT 08/30/23 17:13 IMPRESSION: * No epidural or paraspinal abscess evident. * No evidence of acute thoracic spinal fracture or traumatic malalignment. * Diffuse idiopathic skeletal hyperostosis. * Incidental finding of a multilobar pneumonia within the right and left lower lobes. * Mediastinal lymphadenopathy, presumably reactive. Electronically Signed: Preet Walter MD at 18:28 EST , Renal Ultrasound 08/31/23 02:00 IMPRESSION: Unremarkable study. Electronically Signed: Richelle Francis MD at 8:19 EST , Charges/Coding Visit Charges Inpatient E&M: 38681 Init Hosp L3
[2023-08-31 08:44] LABS: Bedside Glucose 178 mg/dL (74-106)
--- NOTE | 2023-08-31 09:20 | CASEMGMT ---
RN?CM?LOCKER ROOM SUPERVISOR?CM?to room to meet with patient for initial transition planning/care coordination?assessment.?RN?CM?introduced self and role at [facility].? Pt voices understanding and consents to?assessment?at this time.? Pt resting in bed in no distress at this time.? @ bedside. Pt is A/O at this time and answers all questions appropriately.?? Care providers, pharmacy, and demographics verified/updated at this time. PCP: STEFAN Szymanski, Dr Tristan Specialists: Dr Gibson. Pt also goes to a track grinder operator. Preferred Pharmacy: [facility] @ discharge. Insurance: [employer] MCR, MMO Prescription Benefit:?Yes Living Will/HPOA:?Pt does not currently have LW/HCPOA and declines info at this time.? Pt made aware that he can contact as an out-pt and make appt in the future if he decides he would like to talk with someone about this or would like to utilize [facility] social work for advanced directive completion.??? LNOK: , Cleo. Pt has 2 dtrs, but states they are not currently talking to him . Pt asked for dtr, Deann, to be removed from contact list and for step-dtrs, Hermila and Fernanda to be added. Same done at this time. Living Arrangements: Lives w/ in 2-story home w/1 step to enter. Bedroom and bathroom on 2nd floor and there is a bathroom on the main floor as well. Pt is indepedent and works full-time. Transportation:?Pt states drives self and states no transportation concerns at this time.? also drives. DME: States has the following DME:?pulse ox, functioning glucometer w/supplies. Pt does not have home O2. Discussed home O2 set-up process and discussed DME co's and made aware [employer] is affiliated w/[facility]. They choose [employer]. ?Pt and state no need for further DME at this time.? HHC/SNF:No hx of either. No needs identified at this time. Pt wishes to return home and states has no concerns with going home at time of discharge.? ?CM?to follow for home oxygen needs and any further discharge planning/needs.? Pt and voice no further concerns/needs at this time.? Advised pt and to ask for?CM?if any further questions/concerns/needs arise.? They voice understanding. PLAN:??Home w/spousal support and discharge plans in place. Follow for possible home O2 @ discharge. Louis BSN?RN?CM
[2023-08-31] MEDS: Pantoprazole Sodium 20 MG Tablet PO (10:12)
[2023-08-31] MEDS: Heparin Injection (Vial) 5,000 UNIT/ML VIAL 5000 UNIT SC ×2 (10:13→20:32)
[2023-08-31] MEDS: Ceftriaxone 2 GM in 0.9% Normal Saline (50mL MB+) 50 ML IV (10:15)
--- NOTE | 2023-08-31 11:57 | PN_ITS ---
Subjective Subjective Patient seen and examined. He had no active complaints. He had an uneventful night. He denied any fever, chills, palpitations, dizziness, nausea or vomiting. Review of systems otherwise negative. His BP has been running low, in the 90s systolic, but his MAP has been >65. Objective Data Objective Data Vital Signs: Vital Signs Temp Pulse Resp BP Pulse Ox O2 Del Method O2 Flow Rate 97.6 F L 97 25 H 90/54 L 94 Nasal Cannula 4 08/31/23 08:00 08/31/23 11:00 08/31/23 11:00 08/31/23 11:00 08/31/23 11:00 08/31/23 11:00 08/31/23 11:00 Oxygen Flow Rate (L/min) 4 Oxygen Delivery Method Nasal Cannula Weight: 205 lb 4.006 oz Body Mass Index (BMI) 33.1 Intake & Output: Intake and Output for Last 24 Hours 08/29/23 08/30/23 08/31/23 23:59 23:59 23:59 Intake Total 4847 / 4847 460 / 460 Output Total 1250 / 1250 Balance 4847 / 4597 -790 / -790 Lab / Micro Data 08/31/23 04:15 08/31/23 04:15 Labs: Laboratory Results - last 24 hr 08/30/23 12:50: WBC 12.0 H, RBC 4.77, Hgb 13.3, Hct 40.5, MCV 84.9, MCH 27.9, MCHC 32.8, RDW Std Deviation 44.5 H, RDW Coeff of Lesvia 14.4, Plt Count 191, MPV 10.3, Immature Gran % (Auto) 0.400, Neut % (Auto) 93.5 H, Lymph % (Auto) 4.9 L, [place] % (Auto) 0.7, Eos % (Auto) 0.0, Baso % (Auto) 0.5, Absolute Neuts (auto) 11.3 H, Absolute Lymphs (auto) 0.59 L, Nucleated RBC % 0, Differential Comment , PT 16.9 H, INR 1.4, APTT 33.3, Sodium 128 L, Potassium 4.4, Chloride 92 L, Carbon Dioxide 25.0, Anion Gap 11, BUN 60 H, Creatinine 2.81 H, Estim Creat Clear Calc 21.30, Est GFR (MDRD) Af Amer 28 L, Est GFR (MDRD) Non-Af 23 L, BUN/Creatinine Ratio 21.4 H, Glucose 269 H, Lactic Acid 4.8 H*, Calcium 8.6, Total Bilirubin 1.00, AST 19, ALT 30, Alkaline Phosphatase 43 L, Troponin I High Sens 17, B-Natriuretic Peptide 59.3, Total Protein 7.2, Albumin 3.0 L, Globulin 4.2, Albumin/Globulin Ratio 0.7 L 08/30/23 14:25: Urine Color Yellow, Urine Clarity Clear, Urine pH 5.0, Ur Specific [place] 1.015, Urine Protein 30 H, Urine Glucose (UA) Normal, Urine Ketones Negative, Urine Occult Blood 150 H, Urine Nitrite Negative, Urine Bilirubin Negative, Urine Urobilinogen Normal, Ur Leukocyte Esterase Negative, Urine RBC 0-5 SEEN, Urine WBC 0-5 SEEN, Ur Squamous Epith Cells 0 SEEN, Urine Bacteria 0 SEEN, Hyaline Casts 0-5 SEEN, Urine Mucus 0 SEEN, Ur Random Sodium 34, Urine Creatinine 160.00 08/30/23 16:23: POC Glucose 191 H 08/30/23 16:34: Troponin I High Sens 19 08/30/23 17:39: Lactic Acid 2.9 H* 08/30/23 20:34: POC Glucose 190 H 08/31/23 04:15: WBC 8.5, RBC 3.55 L, Hgb 9.8 L, Hct 30.5 L, MCV 85.9, MCH 27.6, MCHC 32.1, RDW Std Deviation 45.3 H, RDW Coeff of Lesvia 14.5, Plt Count 172, MPV 10.9, Sodium 133 L, Potassium 4.0, Chloride 105, Carbon Dioxide 21.0, Anion Gap 7, BUN 53 H, Creatinine 1.91 H, Estim Creat Clear Calc 29.23, Est GFR (MDRD) Af Amer 44 L, Est GFR (MDRD) Non-Af 36 L, BUN/Creatinine Ratio 27.7 H, Glucose 175 H, Calcium 6.4 L* 08/31/23 08:23: POC Glucose 178 H Micro: Microbiology 08/30/23 13:00 Blood Culture (Wb) - Anticubital Right Bacteria Detection (PCR) - Final Streptococcus pneumoniae 08/30/23 13:00 Blood Culture (Wb) - Anticubital Right Blood Culture - Preliminary 08/30/23 13:47 Blood Culture (Wb) - Anticubital Left Blood Culture - Preliminary 08/30/23 16:45 Mucosa - Nose Respiratory Panel (PCR) - Final 08/30/23 14:25 Urine, Clean Catch Legionella Antigen - Final 08/30/23 14:25 Urine, Clean Catch Streptococcus pneumoniae Antigen (M - Final Streptococcus pneumonia Ag 08/30/23 13:50 Nasal Secretion SARS-CoV-2 & FLU Antigen (Rapid) - Final Radiography Diagnostic Testing: Radiology Impression Chest X-Ray 08/30/23 13:50 IMPRESSION: Right middle and lower lobe pneumonia. Questionable infiltrate versus atelectasis left lower lobe. Electronically Signed: Marcello Clemente MD at 14:08 EST , Cervical Spine CT 08/30/23 17:13 IMPRESSION: No evidence of epidural abscess within the cervical spine. No evidence of acute cervical spinal fracture or spondylolisthesis. Electronically Signed: Preet Walter MD at 18:25 EST , Lumbar Spine CT 08/30/23 17:13 IMPRESSION: * No evidence of epidural abscess. * No evidence of acute lumbar spinal fracture or traumatic malalignment. * Lumbar spondylosis with at least moderate central canal stenosis at L3-4 and moderate to severe central canal stenosis at L4-5. * Incidental finding of multilobar pneumonia. Electronically Signed: Preet Walter MD at 18:32 EST , Thoracic Spine CT 08/30/23 17:13 IMPRESSION: * No epidural or paraspinal abscess evident. * No evidence of acute thoracic spinal fracture or traumatic malalignment. * Diffuse idiopathic skeletal hyperostosis. * Incidental finding of a multilobar pneumonia within the right and left lower lobes. * Mediastinal lymphadenopathy, presumably reactive. Electronically Signed: Preet Walter MD at 18:28 EST , Renal Ultrasound 08/31/23 02:00 IMPRESSION: Unremarkable study. Electronically Signed: Richelle Francis MD at 8:19 EST , Rhythm Strip Rhythm Strip: Sinus Tach Rate: 100 Ectopy: None Physical Exam Const alert, oriented x3 and no apparent distress General Appearance: cooperative and well developed HEENT normocephalic, head/scalp atraumatic and moist oral mucous membranes Eyes PERRL and EOMs intact bilaterally Neck no lymphadenopathy and supple Lymph Lymphatic: no lymphadenopathy noted and no lymphedema noted Resp Resp Narrative: mildly diminished breath sounds bibasally, no wheezes or crackles. On 4L of oxygen by nasal canula Effort and Inspection: tachypneic, respiratory distress and labored Cardio regular rate, regular rhythm, S1 normal heart sound, S2 normal heart sound and no murmurs GI normal to inspection, nondistended, normoactive bowel sounds, soft to palpation, non-tender and non-distended Extremity normal capillary refill, no clubbing, cyanosis or edema and no calf tenderness General Extremity: no tenderness to palpation of joints or extremities Skin General Skin Exam: no breakdown Neuro CN's II-XII intact bilaterally, no focal motor deficits, no sensory deficits noted and deep tendon reflexes 2+ bilaterally Motor Exam: strength 5/5 throughout and general weakness Psych thought process normal and cooperative Appearance: appropriate Assessment & Plan Assessment/Plan (1) Streptococcal pneumonia: (2) Acute hypoxic respiratory failure: (3) DEEDEE (acute kidney injury): (4) Aspiration pneumonia: (5) Septic shock: PLAN: Plan #Septic shock due to strep pneumonia * Patient was febrile and tachycardic as well as tachypneic and had hypotension and elevated white cell count as well as lactic acid of 4.6. * Chest x-ray on admission showed right middle and lower lobe pneumonia and urin e For strep antigen was positive. * Patient on IV ceftriaxone. Critical care on board. Sputum and blood cultures pending. * Patient did not require Levophed or any other pressor. * Continue hydrating gently with IV fluids. #Acute hypoxic resp failure due to strep pneumonia * Does not wear oxygen at home. Now on 4 L. Required up to 12 L and has been weaned down to 4 L. Titrate oxygen to maintain saturation above 90%. * On IV ceftriaxone as above. Breathing treatments bronchodilators. * #DEEDEE: resolving. Cr is trending downwards. It was 2.8 on admission and is down to 1.91. Was likely prerenal due to dehydration. #Hyponatremia: Resolving with fluids. Sodium was 128 on admission and is now 133. Will monitor. #Type 2 diabetes mellitus: ISS. Accuchecks ACHS. On metformin, liraglutide, g limepiride and pioglitazone # Hyperlipidemia: On statin #Hypertension: Valsartan on hold in light of DEEDEE. IV hydralazine as needed. Resume valsartan when DEEDEE resolves. #BPH: On Flomax #GERD: On PPI DVT prophylaxis: heparin Charges/Coding Visit Charges Inpatient E&M: 21270 [facility] Hosp L3
[2023-08-31 12:43] LABS: Bedside Glucose 194 mg/dL (74-106)
[2023-08-31] MEDS: Tamsulosin HCl 0.4 MG Capsule 0.400000000000000022 MG PO (16:49)
[2023-08-31 17:11] LABS: Bedside Glucose 199 mg/dL (74-106)
[2023-08-31] MEDS: Atorvastatin Calcium 80 MG Tablet PO (20:32)
[2023-08-31 21:01] LABS: Bedside Glucose 218 mg/dL (74-106)
[2023-09-01] VITALS (17 sets, daily range): BP systolic 96–131; BP diastolic 58–88; PULSE 81–98; RESP 20–29; TEMP 36.6–37.2; O2SAT 90–97; BMI 32.7
[2023-09-01 03:24] LABS: Absolute Lymphocyte Count 0.99 X10^3/uL (0.83-4.51); Absolute Neutrophil Count 8.2 X10^3/uL (2.0-7.7); Basophil# 0.02 X10^3/uL; Basophil% 0.2 % (0-1); Eosinophil# 0.06 X10^3/uL; Eosinophils% 0.6 % (0-5); Hematocrit 35.6 % (40-54); Hemoglobin 11.6 g/dL (13.0-16.5); Lymphocyte # 0.99 X10^3/ul (0.83-4.51); Lymphocyte % 10.3 % (19-41); Mean Corp Hgb Conc 32.6 g/dL (32-36); Mean Corpuscular Hgb 27.4 pg (27.0-32.0); Mean Corpuscular Volume 84.2 fL (80-94); Mean Platelet Vol. 10.2 fl (6.2-12.0); Monocyte# 0.23 X10^3/uL; Monocyte% 2.4 % (0-10); NRBC Flagged by Analyzer 0 % (0-5); Neutrophil # 8.24 X10^3/uL (2.7-7.7); Neutrophil % 85.6 % (47-70); Platelet Count 161 K/mm3 (150-450); RBC Distribution Width CV 14.6 % (11.6-14.6); RBC Distribution Width SD 44.7 fl (35.1-43.9); Red Blood Count 4.23 M/mm3 (4.6-6.2); White Blood Count 9.6 K/mm3 (4.4-11.0)
[2023-09-01 04:00] LABS: Anion Gap 8 (5-15); BUN 37 mg/dL (7-18); BUN/Creat Ratio 25.5 RATIO (10-20); Calcium,Total 8.3 mg/dL (8.5-10.1); Chloride 103 mmol/L (98-107); Creatinine, Serum 1.45 mg/dL (0.70-1.30); EST Glomerular Filtration Rate 50 mL/min (>60); Est Glom Filt Rate - Afr Amer 61 mL/min (>60); Glucose 161 mg/dL (74-106); Potassium 3.4 mmol/L (3.5-5.1); Sodium Level 134 mmol/L (136-145)
[2023-09-01] MEDS: Insulin Lispro 100 UNIT/ML INSULN.PEN SC ×4 (08:11→21:22)
[2023-09-01] MEDS: 0.9% Saline Lock 10 ML Syringe IV ×3 (08:11→16:52)
[2023-09-01] MEDS: Potassium Chloride Oral Tablet 20 MEQ 40 MEQ PO (08:11)
--- NOTE | 2023-09-01 08:16 | CPS ---
decreased pt to 1L NC
[2023-09-01 08:25] LABS: Bedside Glucose 194 mg/dL (74-106)
--- NOTE | 2023-09-01 09:20 | PN_ITS ---
Subjective Subjective Patient seen and examined. He complains of still coughing. Cough is more productive. He denies any fever or chills, nausea vomiting or any other symptoms. Blood pressure stabilized and he is on room air. Review of systems otherwise negative. Objective Data Objective Data Vital Signs: Vital Signs Temp Pulse Resp BP Pulse Ox O2 Del Method O2 Flow Rate 98.0 F 86 22 H 131/76 H 90 Room Air 2 09/01/23 08:00 09/01/23 08:00 09/01/23 08:00 09/01/23 08:00 09/01/23 08:00 09/01/23 08:00 09/01/23 07:45 Oxygen Flow Rate (L/min) 2 Oxygen Delivery Method Room Air Weight: 202 lb 13.204 oz Body Mass Index (BMI) 32.7 Intake & Output: Intake and Output for Last 24 Hours 08/30/23 08/31/23 09/01/23 23:59 23:59 23:59 Intake Total 4847 / 4847 1404.5 / 1404.5 Output Total 4350 / 4350 1800 / 1800 Balance 4847 / 4597 -2945.5 / -2945.5 -1800 / -1800 Lab / Micro Data 09/01/23 03:10 09/01/23 03:10 Labs: Laboratory Results - last 24 hr 08/31/23 12:22: POC Glucose 194 H 08/31/23 16:48: POC Glucose 199 H 08/31/23 20:36: POC Glucose 218 H 09/01/23 03:10: WBC 9.6, RBC 4.23 L, Hgb 11.6 L, Hct 35.6 L, MCV 84.2, MCH 27.4, MCHC 32.6, RDW Std Deviation 44.7 H, RDW Coeff of Lesvia 14.6, Plt Count 161, MPV 10.2, Immature Gran % (Auto) 0.900, Neut % (Auto) 85.6 H, Lymph % (Auto) 10.3 L, [place] % (Auto) 2.4, Eos % (Auto) 0.6, Baso % (Auto) 0.2, Absolute Neuts (auto) 8.2 H, Absolute Lymphs (auto) 0.99, Nucleated RBC % 0, Sodium 134 L, Potassium 3.4 L, Chloride 103, Carbon Dioxide 23.0, Anion Gap 8, BUN 37 H, Creatinine 1.45 H, Estim Creat Clear Calc 38.50, Est GFR (MDRD) Af Amer 61, Est GFR (MDRD) Non- Af 50 L, BUN/Creatinine Ratio 25.5 H, Glucose 161 H, Calcium 8.3 L 09/01/23 08:01: POC Glucose 194 H Micro: Microbiology 08/30/23 13:47 Blood Culture (Wb) - Anticubital Left Blood Culture - Final Streptococcus pneumoniae 08/30/23 13:00 Blood Culture (Wb) - Anticubital Right Bacteria Detection ( PCR) - Final Streptococcus pneumoniae 08/30/23 13:00 Blood Culture (Wb) - Anticubital Right Blood Culture - Preliminary Streptococcus pneumoniae 08/30/23 14:25 Urine, Clean Catch Urine Culture - Preliminary Culture exhibits no growth. 08/30/23 16:45 Mucosa - Nose Respiratory Panel (PCR) - Final 08/30/23 14:25 Urine, Clean Catch Legionella Antigen - Final 08/30/23 14:25 Urine, Clean Catch Streptococcus pneumoniae Antigen (M - Final Streptococcus pneumonia Ag 08/30/23 13:50 Nasal Secretion SARS-CoV-2 & FLU Antigen (Rapid) - Final Rhythm Strip Rhythm Strip: Sinus Tach Rate: 100 Ectopy: None Physical Exam Const alert, oriented x3 and no apparent distress General Appearance: cooperative, comfortable and well developed HEENT normocephalic, head/scalp atraumatic, hearing grossly normal bilaterally, nasal mucous membranes and turbinates normal and moist oral mucous membranes Eyes PERRL, EOMs intact bilaterally and conjunctivae normal Neck full ROM, no lymphadenopathy and supple Lymph Lymphatic: no lymphadenopathy noted and no lymphedema noted Chest inspection of chest normal Resp Resp Narrative: mildly diminished breath sounds bibasally, no wheezes; few bilateral crackles. On room air Cardio regular rate, regular rhythm, S1 normal heart sound, S2 normal heart sound, no murmurs and peripheral pulses 2+ throughout GI normal to inspection, nondistended, normoactive bowel sounds, soft to palpation, non-tender and non-distended Back/Spine normal ROM Extremity normal to inspection, full ROM, normal capillary refill, no clubbing, cyanosis or edema, no calf tenderness and no pedal edema General Extremity: no tenderness to palpation of joints or extremities Skin no rashes or lesions noted General Skin Exam: no breakdown Neuro CN's II-XII intact bilaterally, moves all extremities, no focal motor deficits, no sensory deficits noted and deep tendon reflexes 2+ bilaterally Speech: speech normal Motor Exam: strength 5/5 throughout and general weakness Psych mental status grossly normal, thought process normal and cooperative Appearance: appropriate Assessment & Plan Assessment/Plan (1) Streptococcal pneumonia: (2) Acute hypoxic respiratory failure: (3) DEEDEE (acute kidney injury): (4) Aspiration pneumonia: (5) Septic shock: PLAN: Plan #Septic shock due to strep pneumonia * fever, tachypnea and hypotension have resolved. * Chest x-ray on admission showed right middle and lower lobe pneumonia and urine For strep antigen was positive. * Patient on IV ceftriaxone. Critical care on board. Sputum and blood cultures pending. * Patient did not require Levophed or any other pressor. * #Acute hypoxic resp failure due to strep pneumonia * Does not wear oxygen at home. now down to room air. * On IV ceftriaxone as above. Breathing treatments with bronchodilators. * #DEEDEE: resolving. Cr is trending downwards. It was 2.8 on admission and is down to 1.45. Was likely prerenal due to dehydration. #Hyponatremia: Resolving with fluids. Sodium was 128 on admission and is now 134. Will monitor. #Type 2 diabetes mellitus: ISS. Accuchecks ACHS. On metformin, liraglutide, glimepiride and pioglitazone # Hyperlipidemia: On statin #Hypertension: Valsartan on hold in light of DEEDEE. IV hydralazine as needed. Resume valsartan when DEEDEE resolves. #BPH: On Flomax #GERD: On PPI DVT prophylaxis: heparin Disposition: transfer out of ICU to PCU Charges/Coding Visit Charges Inpatient E&M: 60285 Subs Hosp L2
--- NOTE | 2023-09-01 09:31 | PCM.PN.INT ---
Assessment & Plan Assessment/Plan (1) Streptococcal pneumonia: (2) DEEDEE (acute kidney injury): (3) Acute hypoxic respiratory failure: PLAN: Plan RECOMMENDATIONS: 1. Continue antimicrobials to complete treatment course. 2. Supplemental oxygen, if needed, to maintain saturations at or above 90%. 3. Encourage incentive spirometer use and mobilize patient as tolerated. 4. The patient is medically stable for transfer out of the intensive care unit. IMPRESSIONS: 1. Sepsis secondary to pneumococcal pneumonia The patient appears to be improving clinically with appropriate antimicrobial therapy. The patient remains hemodynamically stable. 2. Acute hypoxic respiratory failure secondary to pneumococcal pneumonia Significantly improved from yesterday. Plan to continue supplemental oxygen, if needed, to maintain saturations at or above 90%. Continue antimicrobial therapy, as noted above. Encourage incentive spirometer use and mobilize patient as tolerated. 3. Acute kidney injury secondary to problems 1 and 2 Most likely prerenal in etiology. Creatinine has improved with volume expansion. Continue to monitor urine output. No current indication for renal replacement therapy. 4. Advanced age/diabetes/hypertension/BPH/GERD Complicates care, management, recovery and prognosis. Continue supportive measures as noted above. This note was generated with [employer] dictation software. It may contain incorrect words, spelling, and punctuation that were not noted in checking the note before signing. Subjective Subjective The patient was seen and examined at the bedside this morning. Events from the last 24 hours have been reviewed. The patient is currently afebrile, hemodynamically stable and maintaining appropriate oxygen saturations on room air. Oxygen status has improved over the last 24 hours. Creatinine has improved to 1.45. Objective Data Objective Data The patient's most recent lab work, culture data and imaging studies have all been personally reviewed. Urine Streptococcus antigen was positive. Blood cultures dated August 30 are positive for Streptococcus pneumonia. Vital Signs: Vital Signs Temp Pulse Resp BP Pulse Ox O2 Del Method O2 Flow Rate 98.0 F 86 22 H 131/76 H 90 Room Air 2 09/01/23 08:00 09/01/23 08:00 09/01/23 08:00 09/01/23 08:00 09/01/23 08:00 09/01/23 08:00 09/01/23 07:45 Oxygen Flow Rate (L/min) 2 Oxygen Delivery Method Room Air Weight: 202 lb 13.204 oz Body Mass Index (BMI) 32.7 Intake & Output: Intake and Output for Last 24 Hours 08/30/23 08/31/23 09/01/23 23:59 23:59 23:59 Intake Total 4847 / 4847 1404.5 / 1404.5 Output Total 4350 / 4350 1800 / 1800 Balance 4847 / 4597 -2945.5 / -2945.5 -1800 / -1800 Lab / Micro Data Attestation: I reviewed the patient's lab results. 09/02/23 02:36 09/02/23 02:36 Labs: Laboratory Results - last 24 hr 08/31/23 12:22: POC Glucose 194 H 08/31/23 16:48: POC Glucose 199 H 08/31/23 20:36: POC Glucose 218 H 09/01/23 03:10: WBC 9.6, RBC 4.23 L, Hgb 11.6 L, Hct 35.6 L, MCV 84.2, MCH 27.4, MCHC 32.6, RDW Std Deviation 44.7 H, RDW Coeff of Lesvia 14.6, Plt Count 161, MPV 10.2, Immature Gran % (Auto) 0.900, Neut % (Auto) 85.6 H, Lymph % (Auto) 10.3 L, [place] % (Auto) 2.4, Eos % (Auto) 0.6, Baso % (Auto) 0.2, Absolute Neuts (auto) 8.2 H, Absolute Lymphs (auto) 0.99, Nucleated RBC % 0, Sodium 134 L, Potassium 3.4 L, Chloride 103, Carbon Dioxide 23.0, Anion Gap 8, BUN 37 H, Creatinine 1.45 H, Estim Creat Clear Calc 38.50, Est GFR (MDRD) Af Amer 61, Est GFR (MDRD) Non-Af 50 L, BUN/Creatinine Ratio 25.5 H, Glucose 161 H, Calcium 8.3 L 09/01/23 08:01: POC Glucose 194 H Micro: Microbiology 08/30/23 13:47 Blood Culture (Wb) - Anticubital Left Blood Culture - Final Streptococcus pneumoniae 08/30/23 13:00 Blood Culture (Wb) - Anticubital Right Bacteria Detection (PCR) - Final Streptococcus pneumoniae 08/30/23 13:00 Blood Culture (Wb) - Anticubital Right Blood Culture - Preliminary Streptococcus pneumoniae 08/30/23 14:25 Urine, Clean Catch Urine Culture - Preliminary Culture exhibits no growth. 08/30/23 16:45 Mucosa - Nose Respiratory Panel (PCR) - Final 08/30/23 14:25 Urine, Clean Catch Legionella Antigen - Final 08/30/23 14:25 Urine, Clean Catch Streptococcus pneumoniae Antigen (M - Final Streptococcus pneumonia Ag 08/30/23 13:50 Nasal Secretion SARS-CoV-2 & FLU Antigen (Rapid) - Final Rhythm Strip Rhythm Strip: Sinus Tach Rate: 100 Ectopy: None Physical Exam Const alert and no apparent distress Constitutional Narrative: Sitting upright in bed. General Appearance: cooperative HEENT normocephalic, head/scalp atraumatic and moist oral mucous membranes Eyes PERRL, EOMs intact bilaterally and conjunctivae normal Neck supple General: trachea midline Chest inspection of chest normal Resp Auscultation: diminished lung sounds; Negative for rales, rhonchi or wheezes Cardio regular rate and regular rhythm GI normal to inspection, nondistended, normoactive bowel sounds Extremity no clubbing, cyanosis or edema Skin no rashes or lesions noted Neuro oriented x3, CN's II-XII intact bilaterally and moves all extremities Psych cooperative and affect normal Charges/Coding Visit Charges Inpatient E&M: 71004 Subs Hosp L2
[2023-09-01] MEDS: Heparin Injection (Vial) 5,000 UNIT/ML VIAL 5000 UNIT SC ×2 (09:32→21:18)
[2023-09-01] MEDS: Ceftriaxone 2 GM in 0.9% Normal Saline (50mL MB+) 50 ML IV (09:32)
[2023-09-01] MEDS: Pantoprazole Sodium 20 MG Tablet PO (09:32)
[2023-09-01] MEDS: metFORMIN HCl 1,000 MG Tablet 1000 MG PO (12:07)
[2023-09-01] MEDS: Pioglitazone Hydrochloride 45 MG Tablet PO (12:07)
[2023-09-01] MEDS: Omega-3 Acid Ethyl Esters 1 GM Capsule PO (12:08)
[2023-09-01] MEDS: Glimepiride 4 MG Tablet PO (12:08)
[2023-09-01] MEDS: Multivitamins,Therapeutic Tablet 1 TABLET PO (12:08)
[2023-09-01 12:31] LABS: Bedside Glucose 315 mg/dL (74-106)
[2023-09-01 16:34] LABS: Bedside Glucose 190 mg/dL (74-106)
[2023-09-01] MEDS: Furosemide 40 MG/4 ML Vial IV (16:52)
[2023-09-01] MEDS: Tamsulosin HCl 0.4 MG Capsule 0.400000000000000022 MG PO (16:52)
--- OUTSIDE RECORDS SUMMARY | 2023-09-01 17:21 | XMS RPT_ITS | CCD ---
Author Name Unknown Address [address] [place] [address] Organization [facility] Care Team Providers Care Children Counselor Name Role Phone Bernardo Toro MD Primary Care Provider Adriano Figueroa Unavailable [phone] BERNARDO TORO Primary Care Unavailable MINDY KATZ Attending Unavailable Bernardo Toro MD Primary Care Provider Adriano Figueroa OD Unavailable [phone] RADHA SZYMANSKI Attending Unavailable BERNARDO TORO Primary Care Unavailable BERNARDO TORO Primary Care Unavailable RADHA SZYMANSKI Referring Unavailable RADHA SZYMANSKI Attending Unavailable BERNARDO TORO Primary Care Unavailable BERNARDO TORO Primary Care Unavailable RADHA SZYMANSKI Referring Unavailable RADHA SZYMANSKI Attending Unavailable BERNARDO TORO Primary Care Unavailable BERNARDO TORO Primary Care Unavailable RADHA SZYMANSKI Referring Unavailable BERNARDO TORO Primary Care Unavailable RADHA SZYMANSKI Attending Unavailable RADHA SZYMANSKI Referring Unavailable BERNARDO TORO Primary Care Unavailable JOE SALOMON Referring Unavailable JOE SALOMON Attending Unavailable BERNARDO TORO Primary Care Unavailable BERNARDO TORO Primary Care Unavailable JOE SALOMON Referring Unavailable Medications Current Medications Medication Drug Class(es) Dates Sig (Normalized) Sig (Original) amoxicillin 875 mg oral tablet (1 source) Penicillin-class Antibacterial Start: 06-02-2022 End: 06-12-2022 take 1 tablet by mouth twice daily amoxicillin (AMOXIL) 875 mg tablet Indications: Yeast dermatitis of penis Take 1 tablet by mouth twice daily for 10 days. 20 tablet 0 06/02/2022 06/12/2022 Active Completed/Discontinued Medications Medication Drug Class(es) Dates Sig (Normalized) Sig (Original) atorvastatin 80 mg oral tablet (20 sources) HMG-CoA Reductase Inhibitor Start: 04-22-2021 End: 05-12-2023 take 1 tablet by mouth once daily atorvastatin (LIPITOR) 80 mg tablet Indications: Hyperlipidemia, unspecified hyperlipidemia type Take 1 tablet by mouth once daily. 90 tablet 3 05/13/2022 05/12/2023 Discontinued Problems Active Problems Problem Classification Problem Date Documented Date Episodic/Chronic Abdominal hernia (20 sources) Diaphragmatic hernia; Translations: [Diaphragmatic hernia without obstruction or gangrene] 08-19-2011 Episodic Bacterial infection; unspecified site (1 source) Other specified bacterial agents as the cause of diseases classified elsewhere; Translations: [Bacterial sinusitis] Onset: 07-03-2023 Episodic Diabetes mellitus without complication (20 sources) Type 2 diabetes mellitus without complication; Translations: [Type 2 diabetes mellitus without complications] Onset: 02-06-2009 Chronic Disorders of lipid metabolism (20 sources) Hyperlipidemia; Translations: [Hyperlipidemia, unspecified] Onset: 04-30-2006 Chronic Diverticulosis and diverticulitis (20 sources) Diverticulosis of colon; Translations: [Diverticulosis of large intestine without perforation or abscess without bleeding] 08-19-2011 Chronic Esophageal disorders (20 sources) Gastroesophageal reflux disease; Translations: [Gastro-esophageal reflux disease without esophagitis] Onset: 04-30-2006 Chronic Essential hypertension (20 sources) Benign essential hypertension; Translations: [Essential (primary) hypertension] Onset: 05-26-2012 Chronic Gastroduodenal ulcer (except hemorrhage) (20 sources) Gastric ulcer; Translations: [Gastric ulcer] 08-19-2011 Chronic Hemorrhoids (20 sources) Hemorrhoids; Translations: [Unspecified hemorrhoids] 08-19-2011 Episodic Hyperplasia of prostate (5 sources) Benign prostatic hypertrophy with outflow obstruction; Translations: [Benign prostatic hyperplasia with lower urinary tract symptoms] Onset: 05-12-2023 Chronic Open wounds of extremities (1 source) Disorder of ankle; Translations: [Unspecified open wound, left ankle, initial encounter] Episodic Other aftercare (1 source) 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; Translations: [On angiotensin receptor blockers (ARB)] Onset: 08-02-2023 Episodic Other inflammatory condition of skin (20 sources) Psoriasis; Translations: [Psoriasis, unspecified] Onset: 12-07-2012 Chronic Other inflammatory condition of skin (1 source) Psoriasis vulgaris; Translations: [Psoriasis vulgaris] Onset: 08-02-2023 Chronic Other non-traumatic joint disorders (3 sources) Pain in right shoulder; Translations: [Pain in joint, shoulder region] Onset: 06-24-2023 06-17-2023 Episodic Other non-traumatic joint disorders (3 sources) Pain in left shoulder; Translations: [Pain in joint, shoulder region] Onset: 06-24-2023 06-24-2023 Episodic Other non-traumatic joint disorders (1 source) Bilateral chronic pain of upper limbs; Translations: [Pain in right shoulder] 06-24-2023 Episodic Other non-traumatic joint disorders (1 source) Disorder of shoulder; Translations: [Other specified joint disorders, unspecified shoulder] 06-24-2023 Episodic Other upper respiratory infections (1 source) Chronic sinusitis, unspecified; Translations: [Bacterial sinusitis] Onset: 07-03-2023 Chronic Past or Other Problems Problem Classification Problem Date Documented Da te Episodic/Chronic Allergic reactions (20 sources) Inflammatory dermatosis; Translations: [Dermatitis, unspecified] Onset: 08-19-2011 Episodic Diseases of mouth; excluding dental (2 sources) Aphthous ulcer of mouth; Translations: [Recurrent oral aphthae] Onset: 02-12-2023 Episodic Mycoses (20 sources) Candidal balanitis; Translations: [Candidal balanitis] Onset: 02-05-2020 02-05-2020 Episodic Other diseases of kidney and ureters (1 source) Other obstructive and reflux uropathy; 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] Onset: 05-12-2023 Episodic Other male genital disorders (20 sources) Disorder of male genital organ; Translations: [Hydrocele, unspecified] Onset: 08-22-2009 08-19-2011 Episodic Other conditions (20 sources) Congenital hydrocele; Translations: [Congenital hydrocele] Onset: 08-07-2006 08-19-2011 Episodic Results Test Name Value Interpretation Reference Range Facil ity Vital Signs Date Time Vital Sign Value Performing Clinician Edi peralta 05-12-2023 07:10-0400 Body weight 83.01 kg Radha Szymanski APRN.CNP Work Phone: [facility] 05-12-2023 07:10-0400 Diastolic blood pressure 80 mm[Hg] Radha Tannhof LUNG PULLER.ADJUNCT ENGLISH INSTRUCTOR Work Phone: [facility] 05-12-2023 07:10-0400 Heart rate 88 /min Radha Tannhof LUNG PULLER.ADJUNCT ENGLISH INSTRUCTOR Work Phone: [facility] 05-12-2023 07:10-0400 Respiratory rate 16 /min Radha Tannhof LUNG PULLER.ADJUNCT ENGLISH INSTRUCTOR Work Phone: [facility] 05-12-2023 07:10-0400 SaO2% (BldA) [Mass fraction] 95 % Radha Tannhof LUNG PULLER.ADJUNCT ENGLISH INSTRUCTOR Work Phone: [facility] 05-12-2023 07:10-0400 Systolic blood pressure 140 mm[Hg] Radha Tannhof LUNG PULLER.ADJUNCT ENGLISH INSTRUCTOR Work Phone: [facility] 11-11-2022 07:27-0500 Body weight 82.1 kg Radha Tannhof LUNG PULLER.ADJUNCT ENGLISH INSTRUCTOR Work Phone: [facility] 11-11-2022 07:27-0500 Diastolic blood pressure 70 mm[Hg] Radha Tannhof LUNG PULLER.ADJUNCT ENGLISH INSTRUCTOR Work Phone: [facility] 11-11-2022 07:27-0500 Heart rate 83 /min Radha Tannhof LUNG PULLER.ADJUNCT ENGLISH INSTRUCTOR Work Phone: [facility] 11-11-2022 07:27-0500 Respiratory rate 16 /min Radha Tannhof LUNG PULLER.ADJUNCT ENGLISH INSTRUCTOR Work Phone: [facility] 11-11-2022 07:27-0500 SaO2% (BldA) [Mass fraction] 97 % Radha Tannhof LUNG PULLER.ADJUNCT ENGLISH INSTRUCTOR Work Phone: [facility] 11-11-2022 07:27-0500 Systolic blood pressure 120 mm[Hg] Radha Tannhof LUNG PULLER.ADJUNCT ENGLISH INSTRUCTOR Work Phone: [facility] 08-12-2022 07:54-0500 Body weight 80.29 kg Radha Tannhof LUNG PULLER.ADJUNCT ENGLISH INSTRUCTOR Work Phone: [facility] 08-12-2022 07:54-0500 Diastolic blood pressure 84 mm[Hg] Radha Tannhof LUNG PULLER.ADJUNCT ENGLISH INSTRUCTOR Work Phone: [facility] 08-12-2022 07:54-0500 Heart rate 87 /min Radha Tannhof LUNG PULLER.ADJUNCT ENGLISH INSTRUCTOR Work Phone: [facility] 08-12-2022 07:54-0500 Respiratory rate 16 /min Radha Tannhof LUNG PULLER.ADJUNCT ENGLISH INSTRUCTOR Work Phone: [facility] 08-12-2022 07:54-0500 SaO2% (BldA) [Mass fraction] 98 % Radha Aguilahof LUNG PULLER.ADJUNCT ENGLISH INSTRUCTOR Work Phone: [facility] 08-12-2022 07:54-0500 Systolic blood pressure 120 mm[Hg] Radha Tannhof LUNG PULLER.ADJUNCT ENGLISH INSTRUCTOR Work Phone: [facility] 06-27-2022 11:30-0400 Body temperature 97.9 [degF] Louann Hunter PA-C Work Phone: [facility] 06-27-2022 11:30-0400 Body weight 85.55 kg Louann Hunter PA-C Work Phone: [facility] 06-27-2022 11:30-0400 Diastolic blood pressure 76 mm[Hg] Louann Hunetr PA-C Work Phone: [facility] 06-27-2022 11:30-0400 Heart rate 70 /min Louann Hunter PA-C Work Phone: [facility] 06-27-2022 11:30-0400 Respiratory rate 18 /min Louann Hunter PA-C Work Phone: [facility] 06-27-2022 11:30-0400 SaO2% (BldA) [Mass fraction] 97 % Louann Hunter PA-C Work Phone: [facility] 06-27-2022 11:30-0400 Systolic blood pressure 135 mm[Hg] Louann Hunter PA-C Work Phone: [facility] 06-02-2022 18:53-0400 Body temperature 97.81 [degF] Mindy Katz DO Work Phone: [facility] 06-02-2022 18:53-0400 Body weight 78.47 kg Mindy Katz DO Work Phone: [facility] 06-02-2022 18:53-0400 Diastolic blood pressure 67 mm[Hg] Mindy Katz DO Work Phone: [facility] 06-02-2022 18:53-0400 Heart rate 87 /min Mindy Katz DO Work Phone: [facility] 06-02-2022 18:53-0400 Respiratory rate 18 /min Mindy Katz DO Work Phone: [facility] 06-02-2022 18:53-0400 SaO2% (BldA) [Mass fraction] 97 % Mindy Katz DO Work Phone: [facility] 06-02-2022 18:53-0400 Systolic blood pressure 127 mm[Hg] Mindy Katz DO Work Phone: [facility] 05-13-2022 08:00-0400 Body weight 79.83 kg Radha Tannhof LUNG PULLER.ADJUNCT ENGLISH INSTRUCTOR Work Phone: [facility] 05-13-2022 08:00-0400 Diastolic blood pressure 78 mm[Hg] Radha Tannhof LUNG PULLER.ADJUNCT ENGLISH INSTRUCTOR Work Phone: [facility] 05-13-2022 08:00-0400 Heart rate 88 /min Radha Tannhof LUNG PULLER.ADJUNCT ENGLISH INSTRUCTOR Work Phone: [facility] 05-13-2022 08:00-0400 Respiratory rate 16 /min Radha Tannhof LUNG PULLER.ADJUNCT ENGLISH INSTRUCTOR Work Phone: [facility] 05-13-2022 08:00-0400 SaO2% (BldA) [Mass fraction] 98 % Radha Tannhof LUNG PULLER.ADJUNCT ENGLISH INSTRUCTOR Work Phone: [facility] 05-13-2022 08:00-0400 Systolic blood pressure 110 mm[Hg] Radha Szymanski APRN.ADJUNCT ENGLISH INSTRUCTOR Work Phone: [facility] 02-10-2022 08:08-0400 Body weight 82.28 kg Bernardo Toro MD Work Phone: [facility] 02-10-2022 08:08-0400 Diastolic blood pressure 82 mm[Hg] Bernardo Toro MD Work Phone: [facility] 02-10-2022 08:08-0400 Heart rate 72 /min Bernardo Toro MD Work Phone: [facility] 02-10-2022 08:08-0400 Respiratory rate 16 /min Bernardo Toro MD Work Phone: [facility] 02-10-2022 08:08-0400 Systolic blood pressure 138 mm[Hg] Bernardo Toro MD Work Phone: [facility] Encounters Encounter Date Encounter Type Care Provider Facility Start: 08-23-2023 End: 08-23-2023 ambulatory BERNARDO TORO Facility:[facility] Start: 08-02-2023 End: 08-03-2023 ambulatory RADHA SZYMANSKI Facility:[facility] Start: 07-03-2023 End: 07-03-2023 ambulatory BERNARDO TORO Facility:[id number] Start: 06-24-2023 End: 06-24-2023 ambulatory JOE SALOMON Facility:[facility] Start: 06-24-2023 End: 06-24-2023 Patient encounter procedure Joe Salomon MD Work Phone: Orthopaedics Procedures Date Procedure Procedure Detail Performing Clinician Start: 06-24-2023 Arthrocentesis aspir &/inj major jt/bursa w/o us Joe Salomon MD Work Phone: Start: 06-24-2023 End: 06-24-2023 Radex shoulder complete minimum 2 views Joe Salomon MD Work Phone: Start: 05-07-2021 Adult depression scr eening assessment Bernardo Toro MD Work Phone: Plan of Treatment Date Care Activity Detail Author Start: 05-12-2024 ANNUAL PCP TEAM CHRONIC DISEASE VISIT ANNUAL PCP TEAM CHRONIC DISEASE VISIT [facility] Start: 05-07-2024 Hepatitis B surface antibody level LDL CHOLESTEROL [facility] Start: 02-13-2024 ANNUAL PCP TEAM CHRONIC DISEASE VISIT ANNUAL PCP TEAM CHRONIC DISEASE VISIT [facility] Start: 02-13-2024 BP CONTROLLED (<130/80) BP CONTROLLED (<130/80) [facility] Start: 11-12-2023 ANNUAL PCP TEAM CHRONIC DISEASE VISIT ANNUAL PCP TEAM CHRONIC DISEASE VISIT [facility] Start: 11-12-2023 BP CONTROLLED (<130/80) BP CONTROLLED (<130/80) [facility] Start: 11-05-2023 Hemoglobin A1c/Hemoglobin.total in Blood HBA1C [facility] Start: 08-12-2023 ANNUAL PCP TEAM CHRONIC DISEASE VISIT ANNUAL PCP TEAM CHRONIC DISEASE VISIT [facility] Start: 08-11-2023 End: 10-11-2023 Comprehensive metabolic 2000 panel - Serum or Plasma COMP METABOLIC PANEL Lab Routine Controlled type 2 diabetes mellitus without complication, without long-term current use of insulin (HCC) Expected: 08/11/2023, Expires: 10/11/2023 [facility] Work Phone: Immunizations Immunization Date Immunization Notes Care Provider Davon short 06-28-2022 influenza virus vacc ine, unspecified formulation Joe Salomon MD Work Phone: [facility] 05-08-2021 influenza, high-dose , quadrivalent vaccine (FLUZONE HIGH DOSE QUADRIVALENT) Bernardo Toro MD Work Phone: [facility] 10-23-2020 COVID-19 vaccine, ag e 12+ yr ([employer] - [employer]) Bernardo Toro MD Work Phone: [facility] 09-04-2020 zoster vaccine recombinant Bernardo Toro MD Work Phone: [facility] 06-08-2020 influenza, high dose seasonal, preservative-free Bernardo Toro MD Work Phone: [facility] 06-08-2020 zoster vaccine recombinant Bernardo Toro MD Work Phone: [facility] 07-18-2019 influenza, high dose seasonal, preservative-free Bernardo Toro MD Work Phone: [facility] 06-10-2018 influenza, high dose seasonal, preservative-free Bernardo Toro MD Work Phone: [facility] 08-14-2015 pneumococcal conjuga te vaccine, 13 valent Bernardo Toro MD Work Phone: [facility] 07-19-2014 pneumococcal polysaccharide vaccine, 23 valent Bernardo Toro MD Work Phone: [facility] 06-28-2014 influenza, high dose seasonal, preservative-free Bernardo Toro MD Work Phone: [facility] 06-11-2013 influenza virus vacc ine, unspecified formulation Bernardo Toro MD Work Phone: [facility] 05-07-2011 influenza virus vacc ine, unspecified formulation Bernardo Toro MD Work Phone: [facility] Work Phone: 08-06-2009 pneumococcal polysaccharide vaccine, 23 valent Bernardo Toro MD Work Phone: [facility] 07-20-2008 influenza virus vacc ine, unspecified formulation Bernardo Toro MD Work Phone: [facility] 02-26-2004 tetanus toxoid, redu tootie diphtheria toxoid, and acellular pertussis vaccine, adsorbed Bernardo Toro MD Work Phone: [facility] Payers Date Payer Category Payer Medicare [id number] 2019 Unknown MMO MMO MEDICARE SUPPLEMENT [id number] 2019-Present [phone] [address] [place] [address] Indemnity [id number] 2019 Unknown MMO MMO MEDICARE SUPPLEMENT [id number] 2019-Present [phone] [address] [place] [address] Indemnity [id number] 2017 Medicare MEDICARE MEDICAR E A AND B [id number] 2017-Present [phone] [place] [address] Medicare [id number] 2017 Medicare MEDICARE MEDICAR E A AND B [id number] 2017-Present [phone] [place] [address] Medicare [id number] 2017 Medicare [id number] Social History Date Type Detail Facility Tobacco smoking status NHIS Never smoked tobacco [facility] Start: 02-10-2022 End: 02-12-2023 Alcohol intake Current non-drinker of alcohol (finding) [facility] Start: 02-09-2022 End: 08-11-2022 History SDOH Alcohol Frequency 1 [facility] Start: 02-09-2022 History SDOH Alcohol Std Drinks 98 [facility] Start: 02-09-2022 End: 08-11-2022 History SDOH Social Connections Phone 3 [facility] Start: 02-09-2022 End: 08-11-2022 History SDOH Social Connections Get Together 2 [facility] Start: 02-09-2022 History SDOH Physica l Activity DPW 4 [facility] Start: 02-04-2020 Education 12 [facility] Start: 1945 Sex Assigned At Male C [facility] Start: 01-31-2022 End: 06-27-2022 Exposure to SARS-CoV-2 (event) Not sure [facility] Start: 08-11-2022 History SDOH Alcohol Std Drinks 0 [facility] Start: 08-11-2022 History SDOH Social Connections Phone 5 [facility] Start: 08-11-2022 End: 02-12-2023 History of Social function [facility] Start: 08-11-2022 End: 02-12-2023 Social connection and isolation panel [facility] Do you belong to any clubs or organizations such as scientologist groups, unions, fraternal or athletic groups, or school groups? Yes [facility] Are you now , , , , never or living with a partner? [facility] How often to you hav e a drink containing alcohol? Never [facility] How many standard dr inks containing alcohol do you have on a typical day? Patient does not drink [facility] How hard is it for y ou to pay for the very basics like food, housing, medical care, and heating Somewhat hard [facility] Do you feel stress - tense, restless, nervous, or anxious, or unable to sleep at night because your mind is troubled all the time - these days [OSQ] Not at all [facility] (I/We) worried wheth er (my/our) food would run out before (I/we) got money to buy more. Sometimes true [facility] In the past 12 month s, was there a time when you were not able to pay the mortgage or rent on time? No [facility] Start: 08-18-2019 Gender identity Identifies as male gender (finding) [facility] Medical Equipment Procedure Code Equipment Code Equipment Origin al Text Equipment Identifier Dates Start: 02-02-2017 End: 06-23-2023 Clinical Notes 11-11-2011 to 08-23-2023 Joe Salomon MD - 06/24/2023 8:09 AM Gosia Davidson RT(R) - 06/24/2023 8:00 AM EDTPatient InstructionsRadha Szymanski APRN.CNP - 05/12/2023 7:15 AM EDTPatient Instructions Note Date & Type Note Facility 08-23-2023 Note HNO ID: [id number] Author: Radha Szymanski APRN.SHARON Service: ? Author Type: Nurse Practitioner Type: Progress Notes Filed: 08/23/2023 7:26 AM Note Text: This is a 77 year old male who presents today with: Patient presents with: Recheck: 3 month HISTORY OF PRESENT ILLNESS: Sean Hollis is a 77 year old male. Patient presents with: Recheck: 3 month Here in the office for 3 month follow up. DM: Reports overall feeling well. Medication side effects: No. Home sugar checks: 140-150's Hypoglycemic spells: No. Watching diet: Yes. Unexpected weight loss: No. Polyuria, polydipsia: No. Vision Changes: No. Foot lesions or numbness or pain: No. Still taking metformin 1000 mg twice daily, Farxiga 10 mg daily, and Amaryl 4 mg, 2 tablets daily, Actos 45 mg daily, and victoza 0.6 mg daily. In july increased Victoza to 1.2 mg daily. A1C went from 7.8 to 8.7. Staying active at work. Patient is still working full-time. Trying to cut back on bread and working on trying to eat low carb. Had 2 cortisone injections in his shoulders in June with Ortho. Refers that his glucose has been elevated since injections. Round of dexamethasone for cold symptoms in June as well. Refers fasting glucose is now coming down to 120-140. Just had eye exam, no changes, with Dr. Gonzalez Would like Flu Vaccine PAST MEDICAL HISTORY: PAST MEDICAL HISTORY Diagnosis Date Diaphragmatic hernia without mention of obstruction or gangrene Hiatal hernia Diverticulosis of colon (without mention of hemorrhage) Diverticulosis Essential hypertension, benign Gastric ulcer Other and unspecified hyperlipidemia Other and unspecified hyperlipidemia Psoriasis Type II or unspecified type diabetes mellitus without mention of complication, not stated as uncontrolled PAST SURGICAL HISTORY Procedure Laterality Date BLEPHAROPLASTY UPPER EYELID W/EXCESSIVE SKIN Bilateral 08/2021 COLONOSCOPY FLX DX W/COLLJ SPEC WHEN PFRMD 07/05/2003 Repeat in COLONOSCOPY FLX DX W/COLLJ SPEC WHEN PFRMD 06/21/2014 Colonoscopy PAST SURGICAL HISTORY OF Right 06/2021 cataract surgery PAST SURGICAL HISTORY OF Left 07/2021 Cataract surgery ALLERGIES Patient has no known allergies. MEDICATIONS Current Outpatient Medications Medication Sig liraglutide (VICTOZA) 0.6 mg/ 0.1 ml subcutaneous pen injector Inject 1.2 mg subcutaneously once daily. blood sugar diagnostic (BLOOD GLUCOSE TEST) test strip Test blood sugar(s) 1 times daily. Dx: Type 2 DM - Uncontrolled E11.65 Insulin: No; PT USES ONE TOUCH ULTRA 2. atorvastatin (LIPITOR) 80 mg tablet Take 1 tablet by mouth once daily. omeprazole (PRILOSEC) 20 mg capsule Take 1 capsule by mouth once daily. tamsulosin (FLOMAX) 0.4 mg Take 1 capsule by mouth daily at bedtime. valsartan (DIOVAN) 160 mg tablet Take 1 tablet by mouth once daily. metFORMIN (GLUCOPHAGE) 1,000 mg tablet Take 1 tablet by mouth twice daily with meals. pioglitazone (ACTOS) 45 mg tablet Take 1 tablet by mouth once daily. glimepiride (AMARYL) 4 mg tablet Take 2 tablets by mouth daily with breakfast. triamcinolone (KENALOG IN ORABASE) 0.1 % paste 1 application by DENTAL route twice daily. risankizumab-rzaa (SKYRIZI SUBCUTANEOUS) multivitamin (MEN'S MULTI-VITAMIN) tablet Take 1 tablet by mouth once daily. Lancets lancets Test blood sugar(s) 1 daily. Dx: E11.9. Insulin: No [place]-3 Fatty Acids-Vitamin E 1,000 mg cap Take 2 capsules by mouth once daily. No current facility-administered medications for this visit. FAMILY HISTORY Problem Relation Age of Onset Diabetes Father Blood Disease Father of blood clot after surgery Blood Disease Brother Factor V Leiden Blood Disease Sister Factor V Leiden Hypertension Mother Social History Tobacco Use Smoking status: Never Smokeless tobacco: Never Vaping Use Vaping Use: Never used Substance Use Topics Alcohol use: No Drug use: No REVIEW OF SYSTEMS GENERAL: No weight loss, malaise or fevers/chills HEENT: Negative for frequent or significant headaches, No changes in hearing or vision. NECK: Negative for lumps, goiter, pain and significant neck swelling RESPIRATORY: Negative for cough, hemoptysis, wheezing, dyspnea or shortness of breath CARDIOVASCULAR: Negative for chest pain, leg swelling, orthopnea, or palpitations GI: No nausea, vomiting, or diarrhea/constipation. No hematochezia/melena. No heartburn or reflux symptoms. : No history of dysuria, frequency or incontinence MUSCULOSKELETAL: Negative for joint pain or swelling. SKIN: Negative for lesions, rash, and itching ENDOCRINE: Negative for cold or heat intolerance, polyuria, polydipsia and goiter NEURO: No history of headaches, syncope, paralysis, seizures or tremors MOOD: Negative for depression, anxiety, or suicidal ideation. EXAM: BP 122/80 (BP Site: Right Arm, BP Position: Sitting, BP Cuff Size: Large Adult) Pulse 81 Resp 16 Wt (more content not included)... [facility] 07-03-2023 Note HNO ID: [id number] Author: Mindy Katz, DO Service: ? Author Type: Physician Type: Progress Notes Filed: 07/03/2023 12:58 PM Note Text: Sean Hollis is a 77 year old MALE who presents with Sinusitis (Sinus pressure mouth pain started last night) HPI PAST MEDICAL HISTORY Diagnosis Date Diaphragmatic hernia without mention of obstruction or gangrene Hiatal hernia Diverticulosis of colon (without mention of hemorrhage) Diverticulosis Essential hypertension, benign Gastric ulcer Other and unspecified hyperlipidemia Other and unspecified hyperlipidemia Psoriasis Type II or unspecified type diabetes mellitus without mention of complication, not stated as uncontrolled ACTIVE PROBLEM LIST Diverticulosis of Colon (Without Mention of Hemorrhage) Unspecified Hemorrhoids Without Mention of Complication Diaphragmatic Hernia Without Mention of Obstruction Or Gangrene Gastric Ulcer Hyperlipidemia Esophageal Reflux Congenital Hydrocele Diabetes Mellitus Type 2, Controlled, Without Complications (Hcc) Hydrocele, Unspecified Dermatitis Essential Hypertension, Benign Psoriasis Candidal Balanitis Current Outpatient Medications Medication Sig Dispense Refill blood sugar diagnostic (BLOOD GLUCOSE TEST) test strip Test blood sugar(s) 1 times daily. Dx: Type 2 DM - Uncontrolled E11.65 Insulin: No; PT USES ONE TOUCH ULTRA 2. 50 Strip 11 liraglutide (VICTOZA) 0.6 mg/ 0.1 ml subcutaneous pen injector Inject 1.2 mg subcutaneously once daily. 6 mL 11 atorvastatin (LIPITOR) 80 mg tablet Take 1 tablet by mouth once daily. 90 tablet 3 omeprazole (PRILOSEC) 20 mg capsule Take 1 capsule by mouth once daily. 90 capsule 3 tamsulosin (FLOMAX) 0.4 mg Take 1 capsule by mouth daily at bedtime. 90 capsule 3 valsartan (DIOVAN) 160 mg tablet Take 1 tablet by mouth once daily. 90 tablet 3 metFORMIN (GLUCOPHAGE) 1,000 mg tablet Take 1 tablet by mouth twice daily with meals. 180 tablet 3 pioglitazone (ACTOS) 45 mg tablet Take 1 tablet by mouth once daily. 90 tablet 3 glimepiride (AMARYL) 4 mg tablet Take 2 tablets by mouth daily with breakfast. 180 tablet 3 triamcinolone (KENALOG IN ORABASE) 0.1 % paste 1 application by DENTAL route twice daily. 5 g 3 risankizumab-rzaa (SKYRIZI SUBCUTANEOUS) multivitamin (MEN'S MULTI-VITAMIN) tablet Take 1 tablet by mouth once daily. Lancets lancets Test blood sugar(s) 1 daily. Dx: E11.9. Insulin: No 100 Each 3 [place]-3 Fatty Acids-Vitamin E 1,000 mg cap Take 2 capsules by mouth once daily. 0 amoxicillin (AMOXIL) 875 mg tablet Take 1 tablet by mouth two times a day for 10 days. 20 tablet 0 dexAMETHasone (DECADRON) 4 mg tablet Take 1 tablet by mouth once daily for 4 days. 4 tablet 0 dapagliflozin propanediol (FARXIGA) 10 mg tablet Take 1 tablet by mouth daily with breakfast. 30 tablet 5 No current facility-administered medications for this visit. Social History Tobacco Use Smoking status: Never Smokeless tobacco: Never Vaping Use Vaping Use: Never used Substance Use Topics Alcohol use: No Drug use: No Alcohol Use: No Tobacco Use: Never FAMILY HISTORY Problem Relation Age of Onset Diabetes Father Blood Disease Father of blood clot after surgery Blood Disease Brother Factor V Leiden Blood Disease Sister Factor V Leiden Hypertension Mother Review of Systems Constitutional: Positive for chills, fever and malaise/fatigue. HENT: Positive for congestion, sinus pain and sore throat. All other systems reviewed and are negative. BP 143/90 Pulse 101 Temp 96.8 Resp 16 Wt 202 lb (91.6kg) SpO2 97% Physical Exam Vitals and nursing note reviewed. Constitutional: Appearance: Normal appearance. HENT: Head: Normocephalic. Right Ear: Tympanic membrane normal. Left Ear: Tympanic membrane normal. Nose: Congestion and rhinorrhea present. Mouth/Throat: Pharynx: Posterior oropharyngeal erythema present. Eyes: Extraocular Movements: Extraocular movements intact. Pupils: Pupils are equal, round, and reactive to light. Cardiovascular: Rate and Rhythm: Normal rate and regular rhythm. Pulses: Normal pulses. Heart sounds: Normal heart sounds. Pulmonary: Effort: Pulmonary effort is normal. Breath sounds: Normal breath sounds. Musculoskeletal: General: Normal range of motion. Lymphadenopathy: Cervical: Cervical adenopathy present. Skin: General: Skin is warm. Capillary Refill: Capillary refill takes 2 to 3 seconds. Neurological: General: No focal deficit present. Mental Status: He is alert. ASSESSMENT/PLAN: 1. Bacterial sinusitis - ICD9: 473.9, 041.9, ICD10: J32.9, B96.89 - AMOXICILLIN 875 MG TABLET - DEXAMETHASONE 4 MG TABLET Mindy Mckenzie [facility] 06-24-2023 Note HNO ID: [id number] Author: Joe Salomon MD Service: ? Author Type: Physician Type: Progress Notes Filed: 06/24/2023 8:43 AM Note Text: Joe Salomon MD Department of Orthopaedics Orthopaed[facility] [address] [facility] [address] Dept: [phone] Dept June 24, 2023 CHIEF COMPLAINT: Pain and Established Patient of the Right Shoulder, Established Patient and Pain of the Left Shoulder, and Last seen 09/19/20 Impingement Syndrome right shoulder (with injection given) HPI Patient here for evaluation of bilateral shoulder pain. Patient states his pain started about 6 months ago. No specific injury. Injections in the past have helped. He would like injections today. Taking Advil and using ice when needed and helps with the pain. X-rays done today of both shoulders. ASSESSMENT: M25.512 Left shoulder pain, unspecified chronicity (primary encounter diagnosis) M25.511, G89.29, M25.512 Chronic pain of both shoulders M25.819 Shoulder impingement PLAN: We talked about both sides again. He would like cortisone injections. He is a diabetic and my recommendation was for staggering, however since he is coming up from [facility], he is interested in doing both today however OBJECTIVE: Mr. Sean Hollis is a pleasant 77 year old in no apparent distress. Gen:There were no vitals taken for this visit. nl development, non obese, no deformities ENT: Normocephalic, normal hearing, moist mucosa CV: Pulses:Radial= 2+ and symmetric, capillary refill < 2 secs, no peripheral edema/varicosities Skin: no rash, bruising or lesions. Good turgor. Psych: cooperative and appropriate, alert and oriented x 3, good mood and affect. Musculoskeletal: Persistent impingement signs of both shoulders. Tenderness at the right biceps with painful speeds Large Joint Arthro/Inj: bilateral subacromial bursas Informed Consent Consent Obtained: Verbal Olmitz Protocol A moment to CARE was completed. SIGN IN Sign in communication not applicable due to emergent procedure. Personnel directly involved with the procedure wore the appropriate PPE. Special Equipment: N/A Patient/Surrogate Stated/Verified: Patient name, Date of , Relevant allergies and Intended procedure TIME OUT Intended patient and procedure match the source document(s). Consent documented and matches the intended procedure. Relevant labs, photos, and/or imaging studies have been reviewed. Correct side/site marked and visible. Medications required for procedure verified. No fire risk assessment and interventions applicable. No implant(s) inserted. 06/24/2023 8:23 AM The procedure site was prepped in the usual sterile fashion. Site: bilateral subacromial bursas Medications (Right): 6 mg betamethasone acetate-betamethasone sodium phosphate 6 mg/mL Medications (Left): 6 mg betamethasone acetate-betamethasone sodium phosphate 6 mg/mL Anesthetics (Right): 5 mL lidocaine (PF) 10 mg/mL (1 %) Anesthetics (Left): 5 mL lidocaine (PF) 10 mg/mL (1 %) Outcome: Tolerated well, no immediate complications Post-injection instructions were reviewed with the patient and the patient voiced understanding of these instructions. SIGN OUT All instruments, equipment, possible retained foreign bodies accounted for. Imaging: Pending Supporting Subjective Information Below: Past Surgical History: PAST SURGICAL HISTORY Procedure Laterality Date BLEPHAROPLASTY UPPER EYELID W/EXCESSIVE SKIN Bilateral 08/2021 COLONOSCOPY FLX DX W/COLLJ SPEC WHEN PFRMD 07/05/2003 Repeat in COLONOSCOPY FLX DX W/COLLJ SPEC WHEN PFRMD 06/21/2014 Colonoscopy PAST SURGICAL HISTORY OF Right 06/2021 cataract surgery PAST SURGICAL HISTORY OF Left 07/2021 Cataract surgery Medications: Current Outpatient Medications Medication Sig blood sugar diagnostic (BLOOD GLUCOSE TEST) test strip Test blood sugar(s) 1 times daily. Dx: Type 2 DM - Uncontrolled E11.65 Insulin: No; PT USES ONE TOUCH ULTRA 2. liraglutide (VICTOZA) 0.6 mg/ 0.1 ml subcutaneous pen injector Inject 1.2 mg subcutaneously once daily. atorvastatin (LIPITOR) 80 mg tablet Take 1 tablet by mouth once daily. omeprazole (PRILOSEC) 20 mg capsule Take 1 capsule by mouth once daily. tamsulosin (FLOMAX) 0.4 mg Take 1 capsule by mouth daily at bedtime. valsartan (DIOVAN) 160 mg tablet Take 1 tablet by mouth once daily. metFORMIN (GLUCOPHAGE) 1,000 mg tablet Take 1 tablet by mouth twice daily with meals. pioglitazone (ACTOS) 45 mg tablet Take 1 tablet by mouth once daily. glimepiride (AMARYL) 4 mg tablet Take 2 tablets by mouth daily with breakfast. triamcinolone (KENALOG IN ORABASE) 0.1 % paste 1 application by DENTAL route twice daily. risankizumab-rzaa (SKYRIZI SUBCUTANEOUS) multivitamin (MEN'S MULTI-VITAMIN) tablet Take 1 tablet by mouth once daily. Lancets lancets Test blood sugar(s) 1 daily. Dx: E11.9. Insulin: No [place]-3 Fatty Acid (more content not included)... [facility] 06-24-2023 Note HNO ID: [id number] Author: Gosia Cummins RT(R) Service: ? Author Type: Technologist Type: Progress Notes Filed: 06/24/2023 8:37 AM Note Text: Radiology Service Progress Note PATIENT NAME: Sean Hollis DATE OF SERVICE: June 24, 2023 TIME: 8:36 AM PATIENT IDENTITY VERIFICATION COMPLETED USING TWO (2) IDENTIFIERS: Name and Date of confirmed by patient verbally. FALL SCREENING: Has the patient had 2 falls in the last year or 1 fall with injury or currently using an Ambulatory Assistive Device (Walker, Cane, Wheelchair, Crutches, etc.)? No PATIENT GENDER DATA: Male PATIENT RELEVANT IMPLANT DATA REVIEWED: Not Applicable RADIOLOGY DEPARTMENT: General X-ray: Exam(s) Completed: Upper Extremity X-Ray(s): Shoulder, AP / TRUE AP / AXILLARY bilateral PERIPHERAL IV DATA: Not applicable SIGNED BY: RT Jaylon(R) June 24, 2023 8:[address] [facility] 06-24-2023 History of Presen t illness Narrative Associated Order(s): Large Joint Arthro/Inj: bilateral subacromial bursas Post-Procedure Diagnose(s): Left shoulder pain, unspecified chronicity; Chronic pain of both shoulders; Shoulder impingement Joe Salomon MD Department of Orthopaedics Orthopaedics [address] [facility] [address] Dept: [phone] Dept June 24, 2023 CHIEF COMPLAINT: Pain and Established Patient of the Right Shoulder, Established Patient and Pain of the Left Shoulder, and Last seen 09/19/20 Impingement Syndrome right shoulder (with injection given) HPI Patient here for evaluation of bilateral shoulder pain. Patient states his pain started about 6 months ago. No specific injury. Injections in the past have helped. He would like injections today. Taking Advil and using ice when needed and helps with the pain. X-rays done today of both shoulders. ASSESSMENT: M25.512 Left shoulder pain, unspecified chronicity (primary encounter diagnosis) M25.511, G89.29, M25.512 Chronic pain of both shoulders M25.819 Shoulder impingement PLAN: We talked about both sides again. He would like cortisone injections. He is a diabetic and my recommendation was for staggering, however since he is coming up from [facility], he is interested in doing both today however OBJECTIVE: Mr. Sean Hollis is a pleasant 77 year old in no apparent distress. Gen:There were no vitals taken for this visit. nl development, non obese, no deformities ENT: Normocephalic, normal hearing, moist mucosa CV: Pulses:Radial= 2+ and symmetric, capillary refill < 2 secs, no peripheral edema/varicosities Skin: no rash, bruising or lesions. Good turgor. Psych: cooperative and appropriate, alert and oriented x 3, good mood and affect. Musculoskeletal: Persistent impingement signs of both shoulders. Tenderness at the right biceps with painful speeds Large Joint Arthro/Inj: bilateral subacromial bursas Informed Consent Consent Obtained: Verbal Olmitz Protocol A moment to CARE was completed. SIGN IN Sign in communication not applicable due to emergent procedure. Personnel directly involved with the procedure wore the appropriate PPE. Special Equipment: N/A Patient/Surrogate Stated/Verified: Patient name, Date of , Relevant allergies and Intended procedure TIME OUT Intended patient and procedure match the source document(s). Consent documented and matches the intended procedure. Relevant labs, photos, and/or imaging studies have been reviewed. Correct side/site marked and visible. Medications required for procedure verified. No fire risk assessment and interventions applicable. No implant(s) inserted. 06/24/2023 8:23 AM The procedure site was prepped in the usual sterile fashion. Site: bilateral subacromial bursas Medications (Right): 6 mg betamethasone acetate-betamethasone sodium phosphate 6 mg/mL Medications (Left): 6 mg betamethasone acetate-betamethasone sodium phosphate 6 mg/mL Anesthetics (Right): 5 mL lidocaine (PF) 10 mg/mL (1 %) Anesthetics (Left): 5 mL lidocaine (PF) 10 mg/mL (1 %) Outcome: Tolerated well, no immediate complications Post-injection instructions were reviewed with the patient and the patient voiced understanding of these instructions. SIGN OUT All instruments, equipment, possible retained foreign bodies accounted for. Imaging: Pending Supporting Subjective Information Below: Past Surgical History: PAST SURGICAL HISTORY Procedure Laterality Date BLEPHAROPLASTY UPPER EYELID W/EXCESSIVE SKIN Bilateral 08/2021 COLONOSCOPY FLX DX W/COLLJ SPEC WHEN PFRMD 07/05/2003 Repeat in COLONOSCOPY FLX DX W/COLLJ SPEC WHEN PFRMD 06/21/2014 Colonoscopy PAST SURGICAL HISTORY OF Right 06/2021 cataract surgery PAST SURGICAL HISTORY OF Left 07/2021 Cataract surgery Medications: Current Outpatient Medications Medication Sig blood sugar diagnostic (BLOOD GLUCOSE TEST) test strip Test blood sugar(s) 1 times daily. Dx: Type 2 DM - Uncontrolled E11.65 Insulin: No; PT USES ONE TOUCH ULTRA 2. liraglutide (VICTOZA) 0.6 mg/ 0.1 ml subcutaneous pen injector Inject 1.2 mg subcutaneously once daily. atorvastatin (LIPITOR) 80 mg tablet Take 1 tablet by mouth once daily. omeprazole (PRILOSEC) 20 mg capsule Take 1 capsule by mouth once daily. tamsulosin (FLOMAX) 0.4 mg Take 1 capsule by mouth daily at bedtime. valsartan (DIOVAN) 160 mg tablet Take 1 tablet by mouth once daily. metFORMIN (GLUCOPHAGE) 1,000 mg tablet Take 1 tablet by mouth twice daily with meals. pioglitazone (ACTOS) 45 mg tablet Take 1 tablet by mouth once daily. glimepiride (AMARYL) 4 mg tablet Take 2 tablets by mouth daily with breakfast. triamcinolone (KENALOG IN ORABASE) 0.1 % paste 1 application by DENTAL route twice daily. risankizumab-rzaa (SKYRIZI SUBCUTANEOUS) multivitamin (MEN'S MULTI-VITAMIN) tablet Take 1 tablet by mouth once daily. Lancets lancets Test blood sugar(s) 1 daily. Dx: E11.9. Insulin: No [place]-3 Fatty Acids-Vitamin E 1,000 mg cap Take 2 capsules by mouth once daily. dapagliflozin propanediol (FARXIGA) 10 mg tablet Take 1 tablet by mouth daily with breakfast. No current facility-administered medications for this visit. Allergies: Patient has no known allergies. ROS: General (negative for fatigue, malaise, weight loss/gain) HEENT (negative for headache, earache, recent vision changes, sinus pain, sore throat) Respiratory (no recent shortness of breath, hemoptysis) CV (negative for chest tightness, palpitations) Musculoskeletal (see HPI) Psych (no depression, anxiety) Joe Salomon MD documented in this encounter [facility] 06-24-2023 History of Presen t illness Narrative Radiology Service Progress Note PATIENT NAME: Sean Hollis DATE OF SERVICE: June 24, 2023 TIME: 8:36 AM PATIENT IDENTITY VERIFICATION COMPLETED USING TWO (2) IDENTIFIERS: Name and Date of confirmed by patient verbally. FALL SCREENING: Has the patient had 2 falls in the last year or 1 fall with injury or currently using an Ambulatory Assistive Device (Walker, Cane, Wheelchair, Crutches, etc.)? No PATIENT GENDER DATA: Male PATIENT RELEVANT IMPLANT DATA REVIEWED: Not Applicable RADIOLOGY DEPARTMENT: General X-ray: Exam(s) Completed: Upper Extremity X-Ray(s): Shoulder, AP / TRUE AP / AXILLARY bilateral PERIPHERAL IV DATA: Not applicable SIGNED BY: RT Jaylon(R) June 24, 2023 8:36 AM documented in this encounter [facility] 05-12-2023 Note HNO ID: [id number] Author: Radha Szymanski APRN.ADJUNCT ENGLISH INSTRUCTOR Service: ? Author Type: Nurse Practitioner Type: Progress Notes Filed: 05/12/2023 7:53 AM Note Text: This is a 77 year old male who presents today with: Patient presents with: Follow Up: 3 month follow up for DM and Labs HISTORY OF PRESENT ILLNESS: Sean Hollis is a 77 year old male. Patient presents with: Follow Up: 3 month follow up for DM and Labs DM: Reports overall feeling well. Medication side effects: No. Home sugar checks: 119-170's. Hypoglycemic spells: No. Watching diet: Yes. Unexpected weight loss: No. Polyuria, polydipsia: No. Vision Changes: No. Foot lesions or numbness or pain: No. Still taking metformin 1000 mg twice daily, Farxiga 10 mg daily, and Amaryl 4 mg, 2 tablets daily, Actos 45 mg daily. . At last office visit added on Victoza 0.6 mg daily. A1C from 8.9 to 7.8. Staying active at work. Patient is still working full-time. Trying to cut back on bread and working on trying to eat low carb. Left Toe: Toe nail is thick, would like it evaluated. PAST MEDICAL HISTORY: PAST MEDICAL HISTORY Diagnosis Date Diaphragmatic hernia without mention of obstruction or gangrene Hiatal hernia Diverticulosis of colon (without mention of hemorrhage) Diverticulosis Essential hypertension, benign Gastric ulcer Other and unspecified hyperlipidemia Other and unspecified hyperlipidemia Psoriasis Type II or unspecified type diabetes mellitus without mention of complication, not stated as uncontrolled PAST SURGICAL HISTORY Procedure Laterality Date BLEPHAROPLASTY UPPER EYELID W/EXCESSIVE SKIN Bilateral 08/2021 COLONOSCOPY FLX DX W/COLLJ SPEC WHEN PFRMD 07/05/2003 Repeat in COLONOSCOPY FLX DX W/COLLJ SPEC WHEN PFRMD 06/21/2014 Colonoscopy PAST SURGICAL HISTORY OF Right 06/2021 cataract surgery PAST SURGICAL HISTORY OF Left 07/2021 Cataract surgery ALLERGIES Patient has no known allergies. MEDICATIONS Current Outpatient Medications Medication Sig dapagliflozin propanediol (FARXIGA) 10 mg tablet Take 1 tablet by mouth daily with breakfast. liraglutide (VICTOZA) 0.6 mg/ 0.1 ml subcutaneous pen injector Inject 0.6 mg daily via pen glimepiride (AMARYL) 4 mg tablet Take 2 tablets by mouth daily with breakfast. blood sugar diagnostic (BLOOD GLUCOSE TEST) test strip Test blood sugar(s) 1 times daily. Dx: Type 2 DM - Uncontrolled E11.65 Insulin: No; PT USES ONE TOUCH ULTRA 2. triamcinolone (KENALOG IN ORABASE) 0.1 % paste 1 application by DENTAL route twice daily. risankizumab-rzaa (SKYRIZI SUBCUTANEOUS) metFORMIN (GLUCOPHAGE) 1,000 mg tablet Take 1 tablet by mouth twice daily with meals. tamsulosin (FLOMAX) 0.4 mg Take 1 capsule by mouth daily at bedtime. omeprazole (PRILOSEC) 20 mg capsule Take 1 capsule by mouth once daily. valsartan (DIOVAN) 160 mg tablet Take 1 tablet by mouth once daily. atorvastatin (LIPITOR) 80 mg tablet Take 1 tablet by mouth once daily. multivitamin (MEN'S MULTI-VITAMIN) tablet Take 1 tablet by mouth once daily. Lancets lancets Test blood sugar(s) 1 daily. Dx: E11.9. Insulin: No [place]-3 Fatty Acids-Vitamin E 1,000 mg cap Take 2 capsules by mouth once daily. liraglutide (VICTOZA) 0.6 mg/ 0.1 ml subcutaneous pen injector Inject 0.6 mg daily via pen (Patient not taking: Reported on 05/12/2023) pioglitazone (ACTOS) 45 mg tablet Take 1 tablet by mouth once daily. No current facility-administered medications for this visit. FAMILY HISTORY Problem Relation Age of Onset Diabetes Father Blood Disease Father of blood clot after surgery Blood Disease Brother Factor V Leiden Blood Disease Sister Factor V Leiden Hypertension Mother Social History Tobacco Use Smoking status: Never Smokeless tobacco: Never Vaping Use Vaping Use: Never used Substance Use Topics Alcohol use: No Drug use: No REVIEW OF SYSTEMS GENERAL: No weight loss, malaise or fevers/chills HEENT: Negative for frequent or significant headaches, No changes in hearing or vision. NECK: Negative for lumps, goiter, pain and significant neck swelling RESPIRATORY: Negative for cough, hemoptysis, wheezing, dyspnea or shortness of breath CARDIOVASCULAR: Negative for chest pain, leg swelling, orthopnea, or palpitations GI: No nausea, vomiting, or diarrhea/constipation. No hematochezia/melena. No heartburn or reflux symptoms. : No history of dysuria, frequency or incontinence MUSCULOSKELETAL: Negative for joint pain or swelling. SKIN: + Thick Toenail ENDOCRINE: Negative for cold or heat intolerance, polyuria, polydipsia and goiter NEURO: No history of headaches, syncope, paralysis, seizures or tremors MOOD: Negative for depression, anxiety, or suicidal ideation. EXAM: BP 140/80 Pulse 88 Resp 16 Wt 83 kg (183 lb) SpO2 95% BMI 27.83 kg/m? PHYSICAL EXAM: General Appearance: Well appearing, alert, in no acute distress, well-hydrated, well (more content not included)... [facility] 05-12-2023 Instructions Radha Szymanski APRN.CNP - 05/12/2023 7:36 AM EDT Increase Victoza to 1.2 mg daily, may stop the Farxiga due to costs. Work on eating low carb diet. Decrease processed foods and higher carb foods in the diet. Increase lean protein, veggies, and stay active. Get repeat labs in 3 months prior to office visit. Consult placed for podiatry if needed in the future. Office will reach out to [facility] to discuss medication costs. documented in this encounter [facility] 05-12-2023 History of Presen t illness Narrative This is a 77 year old male who presents today with: Patient presents with: Follow Up: 3 month follow up for DM and Labs HISTORY OF PRESENT ILLNESS: Sean Hollis is a 77 year old male. Patient presents with: Follow Up: 3 month follow up for DM and Labs DM: Reports overall feeling well. Medication side effects: No. Home sugar checks: 119-170's. Hypoglycemic spells: No. Watching diet: Yes. Unexpected weight loss: No. Polyuria, polydipsia: No. Vision Changes: No. Foot lesions or numbness or pain: No. Still taking metformin 1000 mg twice daily, Farxiga 10 mg daily, and Amaryl 4 mg, 2 tablets daily, Actos 45 mg daily. . At last office visit added on Victoza 0.6 mg daily. A1C from 8.9 to 7.8. Staying active at work. Patient is still working full-time. Trying to cut back on bread and working on trying to eat low carb. Left Toe: Toe nail is thick, would like it evaluated. PAST MEDICAL HISTORY: PAST MEDICAL HISTORY Diagnosis Date Diaphragmatic hernia without mention of obstruction or gangrene Hiatal hernia Diverticulosis of colon (without mention of hemorrhage) Diverticulosis Essential hypertension, benign Gastric ulcer Other and unspecified hyperlipidemia Other and unspecified hyperlipidemia Psoriasis Type II or unspecified type diabetes mellitus without mention of complication, not stated as uncontrolled PAST SURGICAL HISTORY Procedure Laterality Date BLEPHAROPLASTY UPPER EYELID W/EXCESSIVE SKIN Bilateral 08/2021 COLONOSCOPY FLX DX W/COLLJ SPEC WHEN PFRMD 07/05/2003 Repeat in COLONOSCOPY FLX DX W/COLLJ SPEC WHEN PFRMD 06/21/2014 Colonoscopy PAST SURGICAL HISTORY OF Right 06/2021 cataract surgery PAST SURGICAL HISTORY OF Left 07/2021 Cataract surgery ALLERGIES Patient has no known allergies. MEDICATIONS Current Outpatient Medications Medication Sig dapagliflozin propanediol (FARXIGA) 10 mg tablet Take 1 tablet by mouth daily with breakfast. liraglutide (VICTOZA) 0.6 mg/ 0.1 ml subcutaneous pen injector Inject 0.6 mg daily via pen glimepiride (AMARYL) 4 mg tablet Take 2 tablets by mouth daily with breakfast. blood sugar diagnostic (BLOOD GLUCOSE TEST) test strip Test blood sugar(s) 1 times daily. Dx: Type 2 DM - Uncontrolled E11.65 Insulin: No; PT USES ONE TOUCH ULTRA 2. triamcinolone (KENALOG IN ORABASE) 0.1 % paste 1 application by DENTAL route twice daily. risankizumab-rzaa (SKYRIZI SUBCUTANEOUS) metFORMIN (GLUCOPHAGE) 1,000 mg tablet Take 1 tablet by mouth twice daily with meals. tamsulosin (FLOMAX) 0.4 mg Take 1 capsule by mouth daily at bedtime. omeprazole (PRILOSEC) 20 mg capsule Take 1 capsule by mouth once daily. valsartan (DIOVAN) 160 mg tablet Take 1 tablet by mouth once daily. atorvastatin (LIPITOR) 80 mg tablet Take 1 tablet by mouth once daily. multivitamin (MEN'S MULTI-VITAMIN) tablet Take 1 tablet by mouth once daily. Lancets lancets Test blood sugar(s) 1 daily. Dx: E11.9. Insulin: No [place]-3 Fatty Acids-Vitamin E 1,000 mg cap Take 2 capsules by mouth once daily. liraglutide (VICTOZA) 0.6 mg/ 0.1 ml subcutaneous pen injector Inject 0.6 mg daily via pen (Patient not taking: Reported on 05/12/2023) pioglitazone (ACTOS) 45 mg tablet Take 1 tablet by mouth once daily. No current facility-administered medications for this visit. FAMILY HISTORY Problem Relation Age of Onset Diabetes Father Blood Disease Father of blood clot after surgery Blood Disease Brother Factor V Leiden Blood Disease Sister Factor V Leiden Hypertension Mother Social History Tobacco Use Smoking status: Never Smokeless tobacco: Never Vaping Use Vaping Use: Never used Substance Use Topics Alcohol use: No Drug use: No REVIEW OF SYSTEMS GENERAL: No weight loss, malaise or fevers/chills HEENT: Negative for frequent or significant headaches, No changes in hearing or vision. NECK: Negative for lumps, goiter, pain and significant neck swelling RESPIRATORY: Negative for cough, hemoptysis, wheezing, dyspnea or shortness of breath CARDIOVASCULAR: Negative for chest pain, leg swelling, orthopnea, or palpitations GI: No nausea, vomiting, or diarrhea/constipation. No hematochezia/melena. No heartburn or reflux symptoms. : No history of dysuria, frequency or incontinence MUSCULOSKELETAL: Negative for joint pain or swelling. SKIN: + Thick Toenail ENDOCRINE: Negative for cold or heat intolerance, polyuria, polydipsia and goiter NEURO: No history of headaches, syncope, paralysis, seizures or tremors MOOD: Negative for depression, anxiety, or suicidal ideation. EXAM: BP 140/80 Pulse 88 Resp 16 Wt 83 kg (183 lb) SpO2 95% BMI 27.83 kg/m PHYSICAL EXAM: General Appearance: Well appearing, alert, in no acute distress, well-hydrated, well nourished. Skin: Thickened left great toenail, mild yellowing. Head: Normocephalic, no masses, lesions, tenderness or abnormalities. Eyes: Anicteric sclera. Extraocular movements are intact. Lungs: Lungs clear to auscultation. No wheezing, rhonchi, rales. Heart: RRR without murmur, gallop, or rubs. No ectopy. Extremities: No deformities, edema, skin discoloration, clubbing or cyanosis. Good capillary refill. Peripheral Pulses: Normal, Capillary refill <2secs, strong peripheral pulses, Pulses palpable. Neurologic: Gait normal. Sensation grossly intact. ASSESSMENT/PLAN: 1. Controlled type 2 diabetes mellitus without complication, without long-term current use of insulin (HCC) - ICD9: 250.00, ICD10: E11.9 (primary diagnosis) - Improving control - Continue current medications - Increase Victoza 1.2 mg daily. - Stop Farxiga due to cost. - Discussed need for and benefit of weight loss. BMI 27.82 kg/(m^2) - Discussed in great detail importance of eating a low-carb diet and decreasing processed foods. - Get repeat labs in 3 months prior to office visit. - Office will contact [facility] pharmacy about GLP costs. - COMP METABOLIC PANEL - HGB A1C - LIRAGLUTIDE 0.6 MG/0.1 ML (18 MG/3 ML) SUBCUTANEOUS PEN INJECTOR - METFORMIN 1,000 MG TABLET - PIOGLITAZONE 45 MG TABLET 2. Essential hypertension, benign - ICD9: 401.1, ICD10: I10 - Controlled - Continue current medications - Recommend home blood pressure monitoring, to bring results to next visit - Encouraged sodium restriction, DASH or Mediterranean diet - Recommend regular aerobic exercise - VALSARTAN 160 MG TABLET 3. Hyperlipidemia, unspecified hyperlipidemia type - ICD9: 272.4, ICD10: E78.5 - Controlled - Counseled on healthy diet and regular exercise - ATORVASTATIN 80 MG TABLET 4. Gastroesophageal reflux disease, unspecified whether esophagitis present - ICD9: 530.81, ICD10: K21.9 - Stable, refill provided. - OMEPRAZOLE 20 MG CAPSULE,DELAYED RELEASE 5. BPH with obstruction/lower urinary tract symptoms - ICD9: 600.01, 599.69, ICD10: N40.1, N13.8 - Stable, refill provided. - TAMSULOSIN 0.4 MG CAPSULE 6. Yeast dermatitis of penis - ICD9: 112.2, ICD10: B37.49 - Stable, refill provided. - KETOCONAZOLE 2 % TOPICAL CREAM 7. Nail fungus - ICD9: 110.1, ICD10: B35.1 - Denies wanting treatment at this time. - CONSULT TO PODIATRY Follow-up in 3 months or sooner as needed. Discussed treatment plan and patient voices understanding. Patient's questions answered appropriately. Medications and potential side effects were discussed and patient voices understanding. Radha Szymanski APRN.SHARON This note was partially generated using [employer] recognition system. Note was reviewed for accuracy. There may be minor misspellings or grammar miscues with [employer] voice recognition. documented in this encounter [facility] 05-07-2023 Miscellaneous Notes The following approved medication requests have been transmitted electronically. Requested Prescriptions Signed Prescriptions Disp Refills dapagliflozin propanediol (FARXIGA) 10 mg tablet 30 tablet 5 Sig: Take 1 tablet by mouth daily with breakfast. Radha Szymanski APRN.CNP See pt message and advise. Pended Rx as requested. Prema Lopez Ma documented in this encounter [facility] 04-30-2023 Miscellaneous Notes The following approved medication requests have been transmitted electronically. Requested Prescriptions Signed Prescriptions Disp Refills liraglutide (VICTOZA) 0.6 mg/ 0.1 ml subcutaneous pen injector 3 Each 3 Sig: Inject 0.6 mg daily via pen Radha Szymanski APRN.SHARON documented in this encounter [facility] 04-19-2023 Miscellaneous Notes The following approved medication requests have been transmitted electronically. Requested Prescriptions Pending Prescriptions Disp Refills liraglutide (VICTOZA 2-OWEN) 0.6 mg/0.1 mL (18 mg/3 mL) 18 mL 1 Sig: Inject 1.2 mg subcutaneously once daily. Will Ward APRN.SHARON Patient phones requesting refills as follows: Requested Prescriptions Pending Prescriptions Disp Refills liraglutide (VICTOZA 2-OWEN) 0.6 mg/0.1 mL (18 mg/3 mL) 18 mL 1 Sig: Inject 1.2 mg subcutaneously once daily. TERI-02/12/23 Labs-02/03/23 NOV-05/12/23 Please review and advise. Abbie Sanches LPN documented in this encounter [facility] 03-05-2023 Miscellaneous Notes Patient spouse notified of results, verbalizes understanding of instructions. She will tell Pt. Abbie Sanches LPN Can you please call the patient and let him know that I sent needles into his pharmacy. The instructions should be on the box of pens, I would like him to inject 0.6 mg daily for the first week. Then increase up to 1.2 mg daily thereafter. Please let me know if he has any additional questions. Thank you. The following approved medication requests have been transmitted electronically. Requested Prescriptions Signed Prescriptions Disp Refills Insulin [place], Disposable, (NOVOFINE 32) 32 gauge x 09/09 30 Each 11 Si Each once daily. Authorizing Provider: RADHA SZYMANSKI APRN.CNP Pt calls states was given script for victoza but has no needles for this and is unsure how much the provider wants him to start with. Asking needles be sent to [facility] in [place]. It appears the sig tells him how much to take but he states was told has to start and dose up. documented in this encounter [facility] 03-03-2023 Miscellaneous Notes Form signed and re-faxed. Thank you. Radha Szymanski APRN.[employer] Medicare part B detailed written order received via fax for one touch ultra test strips. Order partially completed and on Radha's desk for review, compeletion, and signature. Once completed, please fax to [phone]. Josephine Pina MA documented in this encounter [facility] 02-24-2023 Miscellaneous Notes See MyChart Message. Maribell Velasco RN Victoza would be started at 0.6 mg daily, with probable increase to 1.2 or 1.8 mg daily Lantus would be started at 10 units daily; with increase to 20-30 units as needed based on blood sugar results Bernardo Toro MD Patient calls and states that he had called insurance about Victoza and Lantus. Patient states that insurance is unable to give them a cost until he can tell them what dosage of medication and how often medication needs to be taken. Patient is asking for this information so that he can check with insurance. Please review and advise, Maribell Velasco RN documented in this encounter [facility] 02-24-2023 Miscellaneous Notes The following approved medication requests have been transmitted electronically. Requested Prescriptions Signed Prescriptions Disp Refills blood sugar diagnostic (BLOOD GLUCOSE TEST) test strip 50 Strip 11 Sig: Test blood sugar(s) 1 times daily. Dx: Type 2 DM - Uncontrolled E11.65 Insulin: No; PT USES ONE TOUCH ULTRA 2. liraglutide (VICTOZA) 0.6 mg/ 0.1 ml subcutaneous pen injector 2 Each 0 Sig: Inject 0.6 mg daily via pen liraglutide (VICTOZA) 0.6 mg/ 0.1 ml subcutaneous pen injector 18 mL 1 Sig: Inject 1.2 mg subcutaneously once daily. Radha Szymanski APRN.[employer]GL[employer] documented in this encounter [facility] 02-12-2023 Note HNO ID: [id number] Author: Radha Szymanski APRN.CNP Service: ? Author Type: Nurse Practitioner Type: Progress Notes Filed: 02/17/2023 6:48 AM Note Text: This is a 77 year old male who presents today with: Patient presents with: Follow Up: 3 month follow for DM and labs HISTORY OF PRESENT ILLNESS: Sean Hollis is a 77 year old male. Patient presents with: Follow Up: 3 month follow for DM and labs Here in the office for diabetes 3-month check. DM: Reports overall feeling well. Medication side effects: No. Home sugar checks: 140-170's. Hypoglycemic spells: No. Watching diet: Yes. Unexpected weight loss: No. Polyuria, polydipsia: No. Vision Changes: No. Foot lesions or numbness or pain: No. Actos was increased at last OV to 45 mg daily. Still taking metformin 1000 mg twice daily, Farxiga 10 mg daily, and Amaryl 4 mg, 2 tablets daily. A1C from 8.8 to 8.9. Staying active at work. Breakfast: [place] chex cereal or branflakes, lunch: berries, pineapple, hard boiled eggs, trotter peppers, cucumbers, Dinner: Salad, steak. Discussed adding on a GLP, forms completed by PCP [facility] but got denied for program assistance. Patient is still working full-time. PAST MEDICAL HISTORY: PAST MEDICAL HISTORY Diagnosis Date Diaphragmatic hernia without mention of obstruction or gangrene Hiatal hernia Diverticulosis of colon (without mention of hemorrhage) Diverticulosis Essential hypertension, benign Gastric ulcer Other and unspecified hyperlipidemia Other and unspecified hyperlipidemia Psoriasis Type II or unspecified type diabetes mellitus without mention of complication, not stated as uncontrolled PAST SURGICAL HISTORY Procedure Laterality Date BLEPHAROPLASTY UPPER EYELID W/EXCESSIVE SKIN Bilateral 08/2021 COLONOSCOPY FLX DX W/COLLJ SPEC WHEN PFRMD 07/05/2003 Repeat in COLONOSCOPY FLX DX W/COLLJ SPEC WHEN PFRMD 06/21/2014 Colonoscopy PAST SURGICAL HISTORY OF Right 06/2021 cataract surgery PAST SURGICAL HISTORY OF Left 07/2021 Cataract surgery ALLERGIES Patient has no known allergies. MEDICATIONS Current Outpatient Medications Medication Sig pioglitazone (ACTOS) 45 mg tablet Take 1 tablet by mouth once daily. semaglutide (OZEMPIC) 0.25 mg or 0.5 mg(2 mg/1.5 mL) pen Inject 0.25 mg subcutaneously one time a week for 28 days, THEN 0.5 mg one time a week. risankizumab-rzaa (SKYRIZI SUBCUTANEOUS) dapagliflozin (FARXIGA) 10 mg tablet Take 1 tablet by mouth daily with breakfast. triamcinolone (KENALOG IN ORABASE) 0.1 % paste 1 application by DENTAL route twice daily. metFORMIN (GLUCOPHAGE) 1,000 mg tablet Take 1 tablet by mouth twice daily with meals. tamsulosin (FLOMAX) 0.4 mg Take 1 capsule by mouth daily at bedtime. omeprazole (PRILOSEC) 20 mg capsule Take 1 capsule by mouth once daily. valsartan (DIOVAN) 160 mg tablet Take 1 tablet by mouth once daily. glimepiride (AMARYL) 4 mg tablet Take 2 tablets by mouth daily with breakfast. atorvastatin (LIPITOR) 80 mg tablet Take 1 tablet by mouth once daily. blood sugar diagnostic (BLOOD GLUCOSE TEST) test strip Test blood sugar(s) 1 times daily. Dx: Type 2 DM - Uncontrolled E11.65 Insulin: No; PT USES ONE TOUCH ULTRA 2. multivitamin (MEN'S MULTI-VITAMIN) tablet Take 1 tablet by mouth once daily. Lancets lancets Test blood sugar(s) 1 daily. Dx: E11.9. Insulin: No [place]-3 Fatty Acids-Vitamin E 1,000 mg cap Take 2 capsules by mouth once daily. No current facility-administered medications for this visit. FAMILY HISTORY Problem Relation Age of Onset Diabetes Father Blood Disease Father of blood clot after surgery Blood Disease Brother Factor V Leiden Blood Disease Sister Factor V Leiden Hypertension Mother Social History Tobacco Use Smoking status: Never Smokeless tobacco: Never Vaping Use Vaping Use: Never used Substance Use Topics Alcohol use: No Drug use: No REVIEW OF SYSTEMS GENERAL: No weight loss, malaise or fevers/chills HEENT: Negative for frequent or significant headaches, No changes in hearing or vision. NECK: Negative for lumps, goiter, pain and significant neck swelling RESPIRATORY: Negative for cough, hemoptysis, wheezing, dyspnea or shortness of breath CARDIOVASCULAR: Negative for chest pain, leg swelling, orthopnea, or palpitations GI: No nausea, vomiting, or diarrhea/constipation. No hematochezia/melena. No heartburn or reflux symptoms. : No history of dysuria, frequency or incontinence MUSCULOSKELETAL: Negative for joint pain or swelling. SKIN: Negative for lesions, rash, and itching ENDOCRINE: Negative for cold or heat intolerance, polyuria, polydipsia and goiter NEURO: No history of headaches, syncope, paralysis, seizures or tremors MOOD: Negative for depression, anxiety, or suicidal ideation. EXAM: BP 110/68 Pulse 84 Resp 16 Wt 83 kg (183 lb) SpO2 97% BMI 27.83 kg/m? PHYSICAL EXAM: General Appearance: Well (more content not included)... [facility] 12-04-2022 Miscellaneous Notes Forms faxed. Virginia Salcedo Ma Form done Bernardo Toro MD Forms on PCP's desk. Virginia Salcedo Ma I can complete Bernardo Toro MD Dr. Toro, Would you be able to complete patient Hugo Nordisk application for Ozempic prescription? Or should forms wait until STEFAN Conrad returns. See STEFAN Conrad 11/12/22 note for more information as to why Hugo Nordisk-Ozempic application was mailed to patient. Sw will place forms in mail box in case the may be completed by him. If not, please forward to STEFAN Conrad upon her return to office. Sw received patient Hugo Nordisk application for Ozempic. Sw will take forms to STEFAN Conrad for Ozempic prescription completion. Sw attached cover sheet. Forms once complete may be faxed to [phone]. Patient and spouse let Sw know that they mailed back Hugo Nordisk-ozmepic application to SW. Sw noted that she would look out for application in the mail. documented in this encounter [facility] 11-13-2022 Miscellaneous Notes Sw received consult regarding PAP need for Novocare Ozempic. See 11/12/22 Chad response to consult. Chad will also send patient [employer] message to reach out to patient. documented in this encounter [facility] 11-12-2022 Miscellaneous Notes Travon Parks, I spoke with Kate, can you please assist me with getting a Novocare application started for this patient to see if we can get coverage for Ozempic? I placed consult to SW. Thank you. Radha Szymanski APRN.[employer] ENGL[employer]CTOR documented in this encounter [facility] 11-11-2022 Note HNO ID: [id number] Author: Radha Szymanski APRN.CNP Service: ? Author Type: Nurse Practitioner Type: Progress Notes Filed: 11/11/2022 7:51 AM Note Text: This is a 76 year old male who presents today with: Patient presents with: Follow Up: 3 month follow up for DM HISTORY OF PRESENT ILLNESS: Sean Hollis is a 76 year old male. Patient presents with: Follow Up: 3 month follow up for DM Here in the office for 3-month follow-up for diabetes. DM: Reports overall feeling well. Medication side effects: No. Home sugar checks: 140-150's. Hypoglycemic spells: No. Watching diet: Yes. Unexpected weight loss: No. Polyuria, polydipsia: No. Vision Changes: No. Foot lesions or numbness or pain: No. Actos was increased at last OV to 45 mg daily. Still taking metformin 1000 mg twice daily, Farxiga 10 mg daily, and Amaryl 4 mg, 2 tablets daily. A1C from 8.9 to 8.8. Staying active at work. PAST MEDICAL HISTORY: PAST MEDICAL HISTORY Diagnosis Date Diaphragmatic hernia without mention of obstruction or gangrene Hiatal hernia Diverticulosis of colon (without mention of hemorrhage) Diverticulosis Essential hypertension, benign Gastric ulcer Other and unspecified hyperlipidemia Other and unspecified hyperlipidemia Psoriasis Type II or unspecified type diabetes mellitus without mention of complication, not stated as uncontrolled PAST SURGICAL HISTORY Procedure Laterality Date BLEPHAROPLASTY UPPER EYELID W/EXCESSIVE SKIN Bilateral 08/2021 COLONOSCOPY FLX DX W/COLLJ SPEC WHEN PFRMD 07/05/2003 Repeat in COLONOSCOPY FLX DX W/COLLJ SPEC WHEN PFRMD 06/21/2014 Colonoscopy PAST SURGICAL HISTORY OF Right 06/2021 cataract surgery PAST SURGICAL HISTORY OF Left 07/2021 Cataract surgery ALLERGIES Patient has no known allergies. MEDICATIONS Current Outpatient Medications Medication Sig risankizumab-rzaa (SKYRIZI SUBCUTANEOUS) pioglitazone (ACTOS) 45 mg tablet Take 1 tablet by mouth once daily. dapagliflozin (FARXIGA) 10 mg tablet Take 1 tablet by mouth daily with breakfast. triamcinolone (KENALOG IN ORABASE) 0.1 % paste 1 application by DENTAL route twice daily. metFORMIN (GLUCOPHAGE) 1,000 mg tablet Take 1 tablet by mouth twice daily with meals. tamsulosin (FLOMAX) 0.4 mg Take 1 capsule by mouth daily at bedtime. omeprazole (PRILOSEC) 20 mg capsule Take 1 capsule by mouth once daily. valsartan (DIOVAN) 160 mg tablet Take 1 tablet by mouth once daily. glimepiride (AMARYL) 4 mg tablet Take 2 tablets by mouth daily with breakfast. atorvastatin (LIPITOR) 80 mg tablet Take 1 tablet by mouth once daily. blood sugar diagnostic (BLOOD GLUCOSE TEST) test strip Test blood sugar(s) 1 times daily. Dx: Type 2 DM - Uncontrolled E11.65 Insulin: No; PT USES ONE TOUCH ULTRA 2. multivitamin (MEN'S MULTI-VITAMIN) tablet Take 1 tablet by mouth once daily. Lancets lancets Test blood sugar(s) 1 daily. Dx: E11.9. Insulin: No [place]-3 Fatty Acids-Vitamin E 1,000 mg cap Take 2 capsules by mouth once daily. No current facility-administered medications for this visit. FAMILY HISTORY Problem Relation Age of Onset Diabetes Father Blood Disease Father of blood clot after surgery Blood Disease Brother Factor V Leiden Blood Disease Sister Factor V Leiden Hypertension Mother Social History Tobacco Use Smoking status: Never Smokeless tobacco: Never Vaping Use Vaping Use: Never used Substance Use Topics Alcohol use: No Drug use: No REVIEW OF SYSTEMS GENERAL: No weight loss, malaise or fevers/chills HEENT: Negative for frequent or significant headaches, No changes in hearing or vision. NECK: Negative for lumps, goiter, pain and significant neck swelling RESPIRATORY: Negative for cough, hemoptysis, wheezing, dyspnea or shortness of breath CARDIOVASCULAR: Negative for chest pain, leg swelling, orthopnea, or palpitations GI: No nausea, vomiting, or diarrhea/constipation. No hematochezia/melena. No heartburn or reflux symptoms. : No history of dysuria, frequency or incontinence MUSCULOSKELETAL: Negative for joint pain or swelling. SKIN: Negative for lesions, rash, and itching ENDOCRINE: Negative for cold or heat intolerance, polyuria, polydipsia and goiter NEURO: No history of headaches, syncope, paralysis, seizures or tremors MOOD: Negative for depression, anxiety, or suicidal ideation. Component Latest Ref Rng AND Units 11/06/2022 Protein, Total 6.3 - 8.0 g/dL 7.7 Albumin 3.9 - 4.9 g/dL 4.3 Calcium 8.5 - 10.2 mg/dL 9.7 Bilirubin, Total 0.2 - 1.3 mg/dL 0.8 Alkaline Phosphatase 38 - 113 U/L 71 AST 14 - 40 U/L 22 ALT 10 - 54 U/L 23 Glucose 74 - 99 mg/dL 169 (H) BUN 9 - 24 mg/dL 17 Creatinine 0.73 - 1.22 mg/dL 1.02 Sodium 136 - 144 mmol/L 136 Potassium 3.7 - 5.1 mmol/L 4.3 Chloride 97 - 105 mmol/L 99 CO2 22 - 30 mmol/L 24 Anion Gap 9 - 18 mmol/L 13 eGFR >=60 mL/min/1.73mA? 76 Hemoglobin A1C 4.3 - 5.6 % 8.8 (H) Rachel (more content not included)... [facility] 11-11-2022 Instructions Radha Szymanski APRN.SHARON - 11/11/2022 7:43 AM EST Continue to take all medications as prescribed. Work on eating a low carb diet, increase protein, veggies, and get some form of exercise. Will discuss medications with Clinical pharmacy, I will call you with options. Get repeat labs in 3 months Follow up in 3 months or sooner as needed. documented in this encounter [facility] 11-11-2022 History of Presen t illness Narrative This is a 76 year old male who presents today with: Patient presents with: Follow Up: 3 month follow up for DM HISTORY OF PRESENT ILLNESS: Sean Hollis is a 76 year old male. Patient presents with: Follow Up: 3 month follow up for DM Here in the office for 3-month follow-up for diabetes. DM: Reports overall feeling well. Medication side effects: No. Home sugar checks: 140-150's. Hypoglycemic spells: No. Watching diet: Yes. Unexpected weight loss: No. Polyuria, polydipsia: No. Vision Changes: No. Foot lesions or numbness or pain: No. Actos was increased at last OV to 45 mg daily. Still taking metformin 1000 mg twice daily, Farxiga 10 mg daily, and Amaryl 4 mg, 2 tablets daily. A1C from 8.9 to 8.8. Staying active at work. PAST MEDICAL HISTORY: PAST MEDICAL HISTORY Diagnosis Date Diaphragmatic hernia without mention of obstruction or gangrene Hiatal hernia Diverticulosis of colon (without mention of hemorrhage) Diverticulosis Essential hypertension, benign Gastric ulcer Other and unspecified hyperlipidemia Other and unspecified hyperlipidemia Psoriasis Type II or unspecified type diabetes mellitus without mention of complication, not stated as uncontrolled PAST SURGICAL HISTORY Procedure Laterality Date BLEPHAROPLASTY UPPER EYELID W/EXCESSIVE SKIN Bilateral 08/2021 COLONOSCOPY FLX DX W/COLLJ SPEC WHEN PFRMD 07/05/2003 Repeat in COLONOSCOPY FLX DX W/COLLJ SPEC WHEN PFRMD 06/21/2014 Colonoscopy PAST SURGICAL HISTORY OF Right 06/2021 cataract surgery PAST SURGICAL HISTORY OF Left 07/2021 Cataract surgery ALLERGIES Patient has no known allergies. MEDICATIONS Current Outpatient Medications Medication Sig risankizumab-rzaa (SKYRIZI SUBCUTANEOUS) pioglitazone (ACTOS) 45 mg tablet Take 1 tablet by mouth once daily. dapagliflozin (FARXIGA) 10 mg tablet Take 1 tablet by mouth daily with breakfast. triamcinolone (KENALOG IN ORABASE) 0.1 % paste 1 application by DENTAL route twice daily. metFORMIN (GLUCOPHAGE) 1,000 mg tablet Take 1 tablet by mouth twice daily with meals. tamsulosin (FLOMAX) 0.4 mg Take 1 capsule by mouth daily at bedtime. omeprazole (PRILOSEC) 20 mg capsule Take 1 capsule by mouth once daily. valsartan (DIOVAN) 160 mg tablet Take 1 tablet by mouth once daily. glimepiride (AMARYL) 4 mg tablet Take 2 tablets by mouth daily with breakfast. atorvastatin (LIPITOR) 80 mg tablet Take 1 tablet by mouth once daily. blood sugar diagnostic (BLOOD GLUCOSE TEST) test strip Test blood sugar(s) 1 times daily. Dx: Type 2 DM - Uncontrolled E11.65 Insulin: No; PT USES ONE TOUCH ULTRA 2. multivitamin (MEN'S MULTI-VITAMIN) tablet Take 1 tablet by mouth once daily. Lancets lancets Test blood sugar(s) 1 daily. Dx: E11.9. Insulin: No [place]-3 Fatty Acids-Vitamin E 1,000 mg cap Take 2 capsules by mouth once daily. No current facility-administered medications for this visit. FAMILY HISTORY Problem Relation Age of Onset Diabetes Father Blood Disease Father of blood clot after surgery Blood Disease Brother Factor V Leiden Blood Disease Sister Factor V Leiden Hypertension Mother Social History Tobacco Use Smoking status: Never Smokeless tobacco: Never Vaping Use Vaping Use: Never used Substance Use Topics Alcohol use: No Drug use: No REVIEW OF SYSTEMS GENERAL: No weight loss, malaise or fevers/chills HEENT: Negative for frequent or significant headaches, No changes in hearing or vision. NECK: Negative for lumps, goiter, pain and significant neck swelling RESPIRATORY: Negative for cough, hemoptysis, wheezing, dyspnea or shortness of breath CARDIOVASCULAR: Negative for chest pain, leg swelling, orthopnea, or palpitations GI: No nausea, vomiting, or diarrhea/constipation. No hematochezia/melena. No heartburn or reflux symptoms. : No history of dysuria, frequency or incontinence MUSCULOSKELETAL: Negative for joint pain or swelling. SKIN: Negative for lesions, rash, and itching ENDOCRINE: Negative for cold or heat intolerance, polyuria, polydipsia and goiter NEURO: No history of headaches, syncope, paralysis, seizures or tremors MOOD: Negative for depression, anxiety, or suicidal ideation. Component Latest Ref Rng & Units 11/06/2022 Protein, Total 6.3 - 8.0 g/dL 7.7 Albumin 3.9 - 4.9 g/dL 4.3 Calcium 8.5 - 10.2 mg/dL 9.7 Bilirubin, Total 0.2 - 1.3 mg/dL 0.8 Alkaline Phosphatase 38 - 113 U/L 71 AST 14 - 40 U/L 22 ALT 10 - 54 U/L 23 Glucose 74 - 99 mg/dL 169 (H) BUN 9 - 24 mg/dL 17 Creatinine 0.73 - 1.22 mg/dL 1.02 Sodium 136 - 144 mmol/L 136 Potassium 3.7 - 5.1 mmol/L 4.3 Chloride 97 - 105 mmol/L 99 CO2 22 - 30 mmol/L 24 Anion Gap 9 - 18 mmol/L 13 eGFR >=60 mL/min/1.73m 76 Hemoglobin A1C 4.3 - 5.6 % 8.8 (H) Estimated Average Glucose mg/dL 206 EXAM: BP 120/70 Pulse 83 Resp 16 Wt 82.1 kg (181 lb) SpO2 97% BMI 27.52 kg/m PHYSICAL EXAM: General Appearance: Well appearing, alert, in no acute distress, well-hydrated, well nourished. Skin: Skin color, texture, turgor normal, no suspicious rashes or lesions. Head: Normocephalic, no masses, lesions, tenderness or abnormalities. Eyes: Anicteric sclera. Extraocular movements are intact. Lungs: Lungs clear to auscultation. No wheezing, rhonchi, rales. Heart: RRR without murmur, gallop, or rubs. No ectopy. Extremities: No deformities, edema, skin discoloration, clubbing or cyanosis. Good capillary refill. Peripheral Pulses: Normal, Capillary refill <2secs, strong peripheral pulses, Pulses palpable. Neurologic: Gait normal. Sensation grossly intact. ASSESSMENT/PLAN: 1. Controlled type 2 diabetes mellitus without complication, without long-term current use of insulin (HCC) - ICD9: 250.00, ICD10: E11.9 - Improving control, but would benefit from medication adjustments. - Would be ideal candidate for GLP, however concerned about cost and supply. Will discuss with clinical pharmacy for guidance. - Continue current medications - Counseled on healthy diet and regular exercise - Get repeat labs in 3 months prior to office visit. - COMP METABOLIC PANEL - HGB A1C Follow-up in 3 months or sooner as needed. Discussed treatment plan and patient voices understanding. Patient's questions answered appropriately. Medications and potential side effects were discussed and patient voices understanding. Radha Szymanski APRN.CNP This note was partially generated using [employer] voice recognition system. Note was reviewed for accuracy. There may be minor misspellings or grammar miscues with [employer] voice recognition. documented in this encounter [facility] 08-12-2022 Instructions Radha Szymanski APRN.CNP - 08/12/2022 8:10 AM EST Increase Actos 45 mg daily. Continue to take all medications as prescribed. Work on eating a low carb diet, be mindful of amount of berries consumed. Increase protein, veggies, and get some form of exercise. Get repeat labs in 3 months prior to next visit. Follow up in 3 months. documented in this encounter [facility] 08-12-2022 History of Presen t illness Narrative This is a 76 year old male who presents today with: Patient presents with: Follow Up: 3 month DM HISTORY OF PRESENT ILLNESS: Sean Hollis is a 76 year old male. Patient presents with: Follow Up: 3 month DM Here in the office for 3 month follow up. HTN: Taking Diovan 160 mg daily. Not checking blood pressure at home Denies chest pain, palpitations, dizziness, or edema. Lipids: Taking Lipitor 80 mg daily. No myaglias. DM: A1C went up from 8.6 to 8.9. Taking Januvia 1000 mg daily, Amaryl 4 mg- 2 tablets daily, Actos 30 mg daily,Metformin 1000 mg BID, and Farxiga 10 mg daily ( was increased at last visit). Checking fasting sugars at home randomly, 170-180's fasting. Denies any increase thirst or urination, hypoglycemic episodes, or new foot lesion. Refers he has been eating a lot of berries. 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 BPH: Taking Flomax 0.4 mg at bedtime. GERD: Taking Omeprazole 20 mg daily. Had labs completed prior to visit, CMP showed elevated glucose at 181 and A1 8.9. PAST MEDICAL HISTORY: PAST MEDICAL HISTORY Diagnosis Date Diaphragmatic hernia without mention of obstruction or gangrene Hiatal hernia Diverticulosis of colon (without mention of hemorrhage) Diverticulosis Essential hypertension, benign Gastric ulcer Other and unspecified hyperlipidemia Other and unspecified hyperlipidemia Psoriasis Type II or unspecified type diabetes mellitus without mention of complication, not stated as uncontrolled PAST SURGICAL HISTORY Procedure Laterality Date BLEPHAROPLASTY UPPER EYELID W/EXCESSIVE SKIN Bilateral 08/2021 COLONOSCOPY FLX DX W/COLLJ SPEC WHEN PFRMD 07/05/2003 Repeat in COLONOSCOPY FLX DX W/COLLJ SPEC WHEN PFRMD 06/21/2014 Colonoscopy PAST SURGICAL HISTORY OF Right 06/2021 cataract surgery PAST SURGICAL HISTORY OF Left 07/2021 Cataract surgery ALLERGIES Patient has no known allergies. MEDICATIONS Current Outpatient Medications Medication Sig triamcinolone (KENALOG IN ORABASE) 0.1 % paste 1 application by DENTAL route twice daily. dapagliflozin (FARXIGA) 10 mg tablet Take 1 tablet by mouth daily with breakfast. metFORMIN (GLUCOPHAGE) 1,000 mg tablet Take 1 tablet by mouth twice daily with meals. pioglitazone (ACTOS) 30 mg tablet Take 1 tablet by mouth once daily. tamsulosin (FLOMAX) 0.4 mg Take 1 capsule by mouth daily at bedtime. omeprazole (PRILOSEC) 20 mg capsule Take 1 capsule by mouth once daily. valsartan (DIOVAN) 160 mg tablet Take 1 tablet by mouth once daily. glimepiride (AMARYL) 4 mg tablet Take 2 tablets by mouth daily with breakfast. atorvastatin (LIPITOR) 80 mg tablet Take 1 tablet by mouth once daily. blood sugar diagnostic (BLOOD GLUCOSE TEST) test strip Test blood sugar(s) 1 times daily. Dx: Type 2 DM - Uncontrolled E11.65 Insulin: No; PT USES ONE TOUCH ULTRA 2. COMPOUNDED PRESCRIPTION BLOOD PRESSURE CUFF FOR HOME USE. DX: Hypertension multivitamin (MEN'S MULTI-VITAMIN) tablet Take 1 tablet by mouth once daily. Lancets lancets Test blood sugar(s) 1 daily. Dx: E11.9. Insulin: No [place]-3 Fatty Acids-Vitamin E 1,000 mg cap Take 2 capsules by mouth once daily. No current facility-administered medications for this visit. FAMILY HISTORY Problem Relation Age of Onset Diabetes Father Blood Disease Father of blood clot after surgery Blood Disease Brother Factor V Leiden Blood Disease Sister Factor V Leiden Hypertension Mother Social History Tobacco Use Smoking status: Never Smokeless tobacco: Never Vaping Use Vaping Use: Never used Substance Use Topics Alcohol use: No Drug use: No REVIEW OF SYSTEMS GENERAL: No weight loss, malaise or fevers/chills HEENT: Negative for frequent or significant headaches, No changes in hearing or vision. NECK: Negative for lumps, goiter, pain and significant neck swelling RESPIRATORY: Negative for cough, hemoptysis, wheezing, dyspnea or shortness of breath CARDIOVASCULAR: Negative for chest pain, leg swelling, orthopnea, or palpitations GI: No nausea, vomiting, or diarrhea/constipation. No hematochezia/melena. No heartburn or reflux symptoms. : No history of dysuria, frequency or incontinence MUSCULOSKELETAL: Negative for joint pain or swelling. SKIN: Negative for lesions, rash, and itching ENDOCRINE: Negative for cold or heat intolerance, polyuria, polydipsia and goiter NEURO: No history of headaches, syncope, paralysis, seizures or tremors MOOD: Negative for depression, anxiety, or suicidal ideation. EXAM: BP 120/84 Pulse 87 Resp 16 Wt 80.3 kg (177 lb) SpO2 98% BMI 26.91 kg/m PHYSICAL EXAM: General Appearance: Well appearing, alert, in no acute distress, well-hydrated, well nourished. Skin: Skin color, texture, turgor normal, no suspicious rashes or lesions. Head: Normocephalic, no masses, lesions, tenderness or abnormalities. Eyes: Anicteric sclera. Extraocular movements are intact. Lungs: Lungs clear to auscultation. No wheezing, rhonchi, rales. Heart: RRR without murmur, gallop, or rubs. No ectopy. Extremities: No deformities, edema, skin discoloration, clubbing or cyanosis. Good capillary refill. Peripheral Pulses: Normal, Capillary refill <2secs, strong peripheral pulses, Pulses palpable. Neurologic: Gait normal. Sensation grossly intact. ASSESSMENT/PLAN: 1. Controlled type 2 diabetes mellitus without complication, without long-term current use of insulin (HCC) - ICD9: 250.00, ICD10: E11.9 (primary diagnosis) worsening control - Continue current medications - Increase pioglitazone (Actos) 45 mg daily. - Denies wanting any injectables at this time. - Encouraged regular aerobic exercise and weight loss. - Work on eating low carb diet, limit fruit. - Get repeat labs in 3 months prior to OV. - PIOGLITAZONE 45 MG TABLET - COMP METABOLIC PANEL - DAPAGLIFLOZIN 10 MG TABLET - HGB A1C - DAPAGLIFLOZIN 10 MG TABLET 2. Essential hypertension, benign - ICD9: 401.1, ICD10: I10 - good control - Continue current medication(s) - Recommended regular aerobic exercise. - Goal of BP <130/80 3. Mixed hyperlipidemia - ICD9: 272.2, ICD10: E78.2 - good control - Continue current medication. 4. Gastroesophageal reflux disease, unspecified whether esophagitis present - ICD9: 530.81, ICD10: K21.9 - Continue to take omeprazole as prescribed. 5. BPH with obstruction/lower urinary tract symptoms - ICD9: 600.01, 599.69, ICD10: N40.1, N13.8 - Continue to take Flomax as prescribed. Follow-up in 3 months or sooner as needed. Discussed treatment plan and patient voices understanding. Patient's questions answered appropriately. Medications and potential side effects were discussed and patient voices understanding. Radha Szymanski APRN.[employer] This note was partially generated using [employer] recognition system. Note was reviewed for accuracy. There may be minor misspellings or grammar miscues with [employer] voice recognition. documented in this encounter [facility] 06-27-2022 History of Presen t illness Narrative Sean Hollis is a 76 year old male who presents with Musculoskeletal Problem (Left leg red/swelling 3 weeks ago hit leg on gate area 1cm dark area surrounding skin red) Patient is a 76-year-old male presenting today with a left lower leg wound. He states that a gate hit his left lower leg approximately 3 weeks ago. He has been doctoring this at home but it is not gotten much better. It is getting more red around the surrounding area and so he wanted to come in in order to have this checked. Patient also gets canker sores often and he is out of his medicine form so he was wanting a refill on his canker sore medicine. PAST MEDICAL HISTORY Diagnosis Date Diaphragmatic hernia without mention of obstruction or gangrene Hiatal hernia Diverticulosis of colon (without mention of hemorrhage) Diverticulosis Essential hypertension, benign Gastric ulcer Other and unspecified hyperlipidemia Other and unspecified hyperlipidemia Psoriasis Type II or unspecified type diabetes mellitus without mention of complication, not stated as uncontrolled ACTIVE PROBLEM LIST Diverticulosis of Colon (Without Mention of Hemorrhage) Unspecified Hemorrhoids Without Mention of Complication Diaphragmatic Hernia Without Mention of Obstruction Or Gangrene Gastric Ulcer Hyperlipidemia Esophageal Reflux Congenital Hydrocele Diabetes Mellitus Type 2, Controlled, Without Complications (Hcc) Hydrocele, Unspecified Dermatitis Essential Hypertension, Benign Psoriasis Candidal Balanitis Current Outpatient Medications Medication Sig Dispense Refill metFORMIN (GLUCOPHAGE) 1,000 mg tablet Take 1 tablet by mouth twice daily with meals. 180 tablet 3 pioglitazone (ACTOS) 30 mg tablet Take 1 tablet by mouth once daily. 90 tablet 3 tamsulosin (FLOMAX) 0.4 mg Take 1 capsule by mouth daily at bedtime. 90 capsule 3 omeprazole (PRILOSEC) 20 mg capsule Take 1 capsule by mouth once daily. 90 capsule 3 valsartan (DIOVAN) 160 mg tablet Take 1 tablet by mouth once daily. 90 tablet 3 glimepiride (AMARYL) 4 mg tablet Take 2 tablets by mouth daily with breakfast. 180 tablet 3 atorvastatin (LIPITOR) 80 mg tablet Take 1 tablet by mouth once daily. 90 tablet 3 blood sugar diagnostic (BLOOD GLUCOSE TEST) test strip Test blood sugar(s) 1 times daily. Dx: Type 2 DM - Uncontrolled E11.65 Insulin: No; PT USES ONE TOUCH ULTRA 2. 50 Strip 11 COMPOUNDED PRESCRIPTION BLOOD PRESSURE CUFF FOR HOME USE. DX: Hypertension 1 Device 0 multivitamin (MEN'S MULTI-VITAMIN) tablet Take 1 tablet by mouth once daily. Lancets lancets Test blood sugar(s) 1 daily. Dx: E11.9. Insulin: No 100 Each 3 [place]-3 Fatty Acids-Vitamin E 1,000 mg cap Take 2 capsules by mouth once daily. 0 dapagliflozin (FARXIGA) 10 mg tablet Take 1 tablet by mouth daily with breakfast. 30 tablet 5 No current facility-administered medications for this visit. Social History Tobacco Use Smoking status: Never Smokeless tobacco: Never Vaping Use Vaping Use: Never used Substance Use Topics Alcohol use: No Drug use: No Alcohol Use: No Tobacco Use: Never FAMILY HISTORY Problem Relation Age of Onset Diabetes Father Blood Disease Father of blood clot after surgery Blood Disease Brother Factor V Leiden Blood Disease Sister Factor V Leiden Hypertension Mother Review of Systems Constitutional: Negative. Respiratory: Negative. Cardiovascular: Negative. Skin: Admits to a wound to the left lower leg. Admits to surrounding erythema. Denies drainage. BP 135/76 Pulse 70 Temp 97.9 Resp 18 Wt 188 lb 9.6 oz (85.5kg) SpO2 97% Physical Exam Vitals and nursing note reviewed. Constitutional: Appearance: Normal appearance. HENT: Head: Normocephalic and atraumatic. Cardiovascular: Rate and Rhythm: Normal rate and regular rhythm. Pulses: Normal pulses. Heart sounds: Normal heart sounds. Pulmonary: Effort: Pulmonary effort is normal. Breath sounds: Normal breath sounds. Skin: General: Skin is warm. Capillary Refill: Capillary refill takes less than 2 seconds. Findings: Wound present. Comments: There is a scabbed over wound to the medial aspect of the left lower ankle. There is surrounding erythema that slightly warm to touch. Patient is tenderness upon palpation. No drainage noted. Patient has normal nerve sensation musculoskeletal function. Neurological: Mental Status: He is alert and oriented to person, place, and time. ASSESSMENT/PLAN: 1. Ankle wound, left, initial encounter - ICD9: 891.0, ICD10: S91.002A (primary diagnosis) - CEPHALEXIN 500 MG CAPSULE 2. Canker sore - ICD9: 528.2, ICD10: K12.0 - TRIAMCINOLONE ACETONIDE 0.1 % DENTAL PASTE Joyce cover for infection for the wound with Keflex he is take as directed. He is to keep the area clean and dry. He is to not use any more creams and keep the area open to air so it dries out. Patient does not have a canker sore right now however I did refill his medication for him. If his wound is not improving then he is to make sure he follows up with his primary care doctor for further evaluation and treatment. If worsening signs or symptoms then he is to go to the ER for further evaluation and treatment. The signs and symptoms are described the patient within the room. Patient agrees and understands the plan at this time. Patient was stable upon discharge from [facility]. Louann Hunter PA-C documented in this encounter [facility] 06-02-2022 History of Presen t illness Narrative Images from the original note were not included. Sean Hollis is a 76 year old MALE who presents with Rash (On penis) HPI PAST MEDICAL HISTORY Diagnosis Date Diaphragmatic hernia without mention of obstruction or gangrene Hiatal hernia Diverticulosis of colon (without mention of hemorrhage) Diverticulosis Essential hypertension, benign Gastric ulcer Other and unspecified hyperlipidemia Other and unspecified hyperlipidemia Psoriasis Type II or unspecified type diabetes mellitus without mention of complication, not stated as uncontrolled ACTIVE PROBLEM LIST Diverticulosis of Colon (Without Mention of Hemorrhage) Unspecified Hemorrhoids Without Mention of Complication Diaphragmatic Hernia Without Mention of Obstruction Or Gangrene Gastric Ulcer Hyperlipidemia Esophageal Reflux Congenital Hydrocele Diabetes Mellitus Type 2, Controlled, Without Complications (Hcc) Hydrocele, Unspecified Dermatitis Essential Hypertension, Benign Psoriasis Candidal Balanitis Current Outpatient Medications Medication Sig Dispense Refill dapagliflozin (FARXIGA) 10 mg tablet Take 1 tablet by mouth daily with breakfast. 30 tablet 5 metFORMIN (GLUCOPHAGE) 1,000 mg tablet Take 1 tablet by mouth twice daily with meals. 180 tablet 3 pioglitazone (ACTOS) 30 mg tablet Take 1 tablet by mouth once daily. 90 tablet 3 tamsulosin (FLOMAX) 0.4 mg Take 1 capsule by mouth daily at bedtime. 90 capsule 3 omeprazole (PRILOSEC) 20 mg capsule Take 1 capsule by mouth once daily. 90 capsule 3 valsartan (DIOVAN) 160 mg tablet Take 1 tablet by mouth once daily. 90 tablet 3 glimepiride (AMARYL) 4 mg tablet Take 2 tablets by mouth daily with breakfast. 180 tablet 3 atorvastatin (LIPITOR) 80 mg tablet Take 1 tablet by mouth once daily. 90 tablet 3 blood sugar diagnostic (BLOOD GLUCOSE TEST) test strip Test blood sugar(s) 1 times daily. Dx: Type 2 DM - Uncontrolled E11.65 Insulin: No; PT USES ONE TOUCH ULTRA 2. 50 Strip 11 COMPOUNDED PRESCRIPTION BLOOD PRESSURE CUFF FOR HOME USE. DX: Hypertension 1 Device 0 multivitamin (MEN'S MULTI-VITAMIN) tablet Take 1 tablet by mouth once daily. Lancets lancets Test blood sugar(s) 1 daily. Dx: E11.9. Insulin: No 100 Each 3 [place]-3 Fatty Acids-Vitamin E 1,000 mg cap Take 2 capsules by mouth once daily. 0 amoxicillin (AMOXIL) 875 mg tablet Take 1 tablet by mouth twice daily for 10 days. 20 tablet 0 ketoconazole (NIZORAL) 2 % cream Apply 1 application to affected area once daily for 14 days. 30 g 0 No current facility-administered medications for this visit. Social History Tobacco Use Smoking status: Never Smokeless tobacco: Never Vaping Use Vaping Use: Never used Substance Use Topics Alcohol use: No Drug use: No Alcohol Use: No Tobacco Use: Never FAMILY HISTORY Problem Relation Age of Onset Diabetes Father Blood Disease Father of blood clot after surgery Blood Disease Brother Factor V Leiden Blood Disease Sister Factor V Leiden Hypertension Mother Review of Systems Skin: Positive for itching and rash. Patient has a rash on the head of the penis. 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 The patient states that he thinks that he caught something there from the bacteria. All other systems reviewed and are negative. BP 127/67 Pulse 87 Temp 97.8 Resp 18 Wt 173 lb (78.5kg) SpO2 97% Physical Exam Vitals and nursing note reviewed. Genitourinary: Penis: Uncircumcised. Erythema, tenderness, swelling and lesions present. Comments: Exam shows normal external male genitalia. He is uncircumcised. When he retracts the foreskin you are able to see on the head of the penis that he does have a rash. It looks like a combination of yeast with bacteria. It is slightly oozing a serous fluid. Patient states that it hurts a little bit. There are no vesicular lesions there are no garzon that look like abrasions or scratches. It just looks like he is got a bad yeast infection here and probably underneath the foreskin it just continued to grow along with the bacteria. Patient states he was not able to keep hygiene at its normal while he was there. He is not having any difficulty urinating no pain with urination no other symptomatology. ASSESSMENT/PLAN: 1. Yeast dermatitis of penis - ICD9: 112.2, ICD10: B37.49 - AMOXICILLIN 875 MG TABLET - KETOCONAZOLE 2 % TOPICAL CREAM Mindy Katz documented in this encounter [facility] 05-13-2022 Instructions Radha Szymanski APRN.SHARON - 05/13/2022 8:17 AM EDT 1.) Get repeat labs in 3 months. 2.) Increase Farxgia 10 mg daily. Continue to check sugars and home and write down. Be mindful of what fruit you eat. Increase protein and veggies. 3.) Continue to take all medication as prescribed. 4.) Follow up in 3 months or sooner as needed. documented in this encounter [facility] 05-13-2022 History of Presen t illness Narrative This is a 76 year old male who presents today with: Patient presents with: Follow Up: 3 month follow up HISTORY OF PRESENT ILLNESS: Sean Hollis is a 76 year old male. Patient presents with: Follow Up: 3 month follow up Here in the office for 3-month follow-up. HTN: Taking Diovan 160 mg daily. Checking blood pressure at home randomly. Denies chest pain, palpitations, dizziness or edema. Lipids: Taking Lipitor 80 mg. Has been trying to work on diet. Recent cholesterol panel showed low HDL. LDL within normal limits. DM: Taking Januvia 100 mg, Amaryl 4 mg 2 tablets daily, Actos 30 mg daily, and metformin 1000 mg twice daily. Farxiga 5 mg daily. Fasting blood sugars at home about 160-200. No increased thirst or urination. No new foot lesions. A1c up from 8.4 to 8.6. Refers that he has been working hard to lose weight at home. Increasing protein and vegetables and fruit. Refills that were provided in February were never received by the pharmacy. PAST MEDICAL HISTORY: PAST MEDICAL HISTORY Diagnosis Date Diaphragmatic hernia without mention of obstruction or gangrene Hiatal hernia Diverticulosis of colon (without mention of hemorrhage) Diverticulosis Essential hypertension, benign Gastric ulcer Other and unspecified hyperlipidemia Other and unspecified hyperlipidemia Psoriasis Type II or unspecified type diabetes mellitus without mention of complication, not stated as uncontrolled PAST SURGICAL HISTORY Procedure Laterality Date BLEPHAROPLASTY UPPER EYELID W/EXCESSIVE SKIN Bilateral 08/2021 COLONOSCOPY FLX DX W/COLLJ SPEC WHEN PFRMD 07/05/2003 Repeat in COLONOSCOPY FLX DX W/COLLJ SPEC WHEN PFRMD 06/21/2014 Colonoscopy PAST SURGICAL HISTORY OF Right 06/2021 cataract surgery PAST SURGICAL HISTORY OF Left 07/2021 Cataract surgery ALLERGIES Patient has no known allergies. MEDICATIONS Current Outpatient Medications Medication Sig metFORMIN (GLUCOPHAGE) 1,000 mg tablet Take 1 tablet by mouth twice daily with meals. dapagliflozin (FARXIGA) 5 mg tablet Take 1 tablet by mouth once daily. Take one daily in the morning clotrimazole-betamethasone (LOTRISONE) cream Apply 1 application to affected area twice daily. As needed pioglitazone (ACTOS) 30 mg tablet Take 1 tablet by mouth once daily. tamsulosin (FLOMAX) 0.4 mg Take 1 capsule by mouth daily at bedtime. omeprazole (PRILOSEC) 20 mg capsule Take 1 capsule by mouth once daily. valsartan (DIOVAN) 160 mg tablet Take 1 tablet by mouth once daily. glimepiride (AMARYL) 4 mg tablet Take 2 tablets by mouth daily with breakfast. atorvastatin (LIPITOR) 80 mg tablet Take 1 tablet by mouth once daily. blood sugar diagnostic (BLOOD GLUCOSE TEST) test strip Test blood sugar(s) 1 times daily. Dx: Type 2 DM - Uncontrolled E11.65 Insulin: No; PT USES ONE TOUCH ULTRA 2. blood sugar diagnostic (BLOOD GLUCOSE TEST) test strip Test blood sugar(s) 1 times daily. Dx: Type 2 DM - Uncontrolled E11.65 Insulin: No; PT USES ONE TOUCH ULTRA 2. COMPOUNDED PRESCRIPTION BLOOD PRESSURE CUFF FOR HOME USE. DX: Hypertension multivitamin (MEN'S MULTI-VITAMIN) tablet Take 1 tablet by mouth once daily. Lancets lancets Test blood sugar(s) 1 daily. Dx: E11.9. Insulin: No Lancets (ACCU-CHEK MULTICLIX LANCET) lancets Use as instructed; Once daily; Dx 250.00 [place]-3 Fatty Acids-Vitamin E (FISH OIL) 1,000 mg ORAL Cap Take 2 capsules by mouth once daily. No current facility-administered medications for this visit. FAMILY HISTORY Problem Relation Age of Onset Diabetes Father Blood Disease Father of blood clot after surgery Blood Disease Brother Factor V Leiden Blood Disease Sister Factor V Leiden Hypertension Mother Social History Tobacco Use Smoking status: Never Smokeless tobacco: Never Vaping Use Vaping Use: Never used Substance Use Topics Alcohol use: No Drug use: No REVIEW OF SYSTEMS GENERAL: No weight loss, malaise or fevers/chills HEENT: Negative for frequent or significant headaches, No changes in hearing or vision. NECK: Negative for lumps, goiter, pain and significant neck swelling RESPIRATORY: Negative for cough, hemoptysis, wheezing, dyspnea or shortness of breath CARDIOVASCULAR: Negative for chest pain, leg swelling, orthopnea, or palpitations GI: No nausea, vomiting, or diarrhea/constipation. No hematochezia/melena. No heartburn or reflux symptoms. : No history of dysuria, frequency or incontinence MUSCULOSKELETAL: Negative for joint pain or swelling. SKIN: Negative for lesions, rash, and itching ENDOCRINE: Negative for cold or heat intolerance, polyuria, polydipsia and goiter NEURO: No history of headaches, syncope, paralysis, seizures or tremors MOOD: Negative for depression, anxiety, or suicidal ideation. EXAM: BP 110/78 Pulse 88 Resp 16 Wt 79.8 kg (176 lb) SpO2 98% BMI 26.76 kg/m PHYSICAL EXAM: General Appearance: Well appearing, alert, in no acute distress, well-hydrated, well nourished. Skin: Skin color, texture, turgor normal, no suspicious rashes or lesions. Head: Normocephalic, no masses, lesions, tenderness or abnormalities. Eyes: Anicteric sclera. Extraocular movements are intact. Lungs: Lungs clear to auscultation. No wheezing, rhonchi, rales. Heart: RRR without murmur, gallop, or rubs. No ectopy. Extremities: No deformities, edema, skin discoloration, clubbing or cyanosis. Good capillary refill. Peripheral Pulses: Normal, Capillary refill <2secs, strong peripheral pulses, Pulses palpable. Neurologic: Gait normal. Sensation grossly intact. ASSESSMENT/PLAN: 1. Controlled type 2 diabetes mellitus without complication, without long-term current use of insulin (HCC) - ICD9: 250.00, ICD10: E11.9 (primary diagnosis) worsening control - Continue current medications - Increase Farxiga to 10 mg daily. - Discussed with the patient the importance of being mindful of what fruits he is eating. - Gave DM2 education booklets. - Recheck A1c in 3 month. - Encouraged regular aerobic exercise and weight loss - DAPAGLIFLOZIN 10 MG TABLET - METFORMIN 1,000 MG TABLET - PIOGLITAZONE 30 MG TABLET - GLIMEPIRIDE 4 MG TABLET - HGB A1C - COMP METABOLIC PANEL 2. Essential hypertension, benign - ICD9: 401.1, ICD10: I10 - good control - Continue current medication(s) - Recommended regular aerobic exercise. - Recommend home blood pressure monitoring, to bring results in on next visit - Goal of BP <130/80 - VALSARTAN 160 MG TABLET 3. Hyperlipidemia, unspecified hyperlipidemia type - ICD9: 272.4, ICD10: E78.5 - good control - Continue current medication. - ATORVASTATIN 80 MG TABLET 4. BPH with obstruction/lower urinary tract symptoms - ICD9: 600.01, 599.69, ICD10: N40.1, N13.8 - Refilled - TAMSULOSIN 0.4 MG CAPSULE 5. Gastroesophageal reflux disease, unspecified whether esophagitis present - ICD9: 530.81, ICD10: K21.9 - Refilled - OMEPRAZOLE 20 MG CAPSULE,DELAYED RELEASE 6. Dermatitis - ICD9: 692.9, ICD10: L30.9 - Refilled - CLOTRIMAZOLE-BETAMETHASONE 1 %-0.05 % TOPICAL CREAM 7. Psoriasis - ICD9: 696.1, ICD10: L40.9 - Refilled - CLOTRIMAZOLE-BETAMETHASONE 1 %-0.05 % TOPICAL CREAM Follow-up in 3 months or sooner as needed. Discussed treatment plan and patient voices understanding. Patient's questions answered appropriately. Medications and potential side effects were discussed and patient voices understanding. Radha Szymanski APRN.SHARON This note was partially generated using [employer] voice recognition system. Note was reviewed for accuracy. There may be minor misspellings or grammar miscues with Dragon voice recognition. documented in this encounter [facility] 03-04-2022 Miscellaneous Notes The following approved medication requests have been transmitted electronically. Signed Prescriptions Disp Refills metFORMIN (GLUCOPHAGE) 1,000 mg tablet 180 tablet 3 Sig: Take 1 tablet by mouth twice daily with meals. NIKKI: No Authorizing Provider: BERNARDO TORO Ma OK to refill as ordered Bernardo Toro MD Sona with [facility] called in asking for Pts medication refill. Reports that they never received the last prescription sent in. Patient has been identified by name and date of : Yes Pharmacy phones for refill(s): Pending Prescriptions Disp Refills METFORMIN 1,000 MG TABLET 180 tablet 3 Sig: Take 1 tablet by mouth twice daily with meals. NIKKI: No Date of last office visit in primary care: 02/10/22 Future visit: 05/13/22 Last 2 Encounter Wt Readings: Date: Wt: 02/10/2022 82.3 kg (181 lb 6.4 oz) 11/10/2021 82.4 kg (181 lb 9.6 oz) Previous labs/tests for medication: Diabetes: Hemoglobin A1C (%) Date Value 02/05/2022 8.4 11/06/2021 9.7 05/03/2021 7.6 11/02/2020 7.6 Please advise. Thank you. Renae Best RN documented in this encounter [facility] 02-12-2022 Miscellaneous Notes Pt notified and voiced understanding. Virginia Salcedo Ma We may try Farxiga, but it may be the same marley, If it is not affordable then I would suggest just trying to work on diet for the next 3 months and see if the A1c will keep coming down. Bernardo Toro MD Patient called in advising [facility] rx is $445 but could not afford that. Did look into this to make sure prior auth is not needed. Medication is covered under medicare but this is the marley of the drug. No cheaper discount found on [employer] and does not qualify for discount card on [facility] website since has Medicare. Please review and let patient know if something else can be prescribed. Althea Rogers Ma documented in this encounter [facility] 02-10-2022 Miscellaneous Notes Forms completed and most recent OV sent on 02/10/22. Faxed to number below. Prema Lopez Ma Type of letter/form/fax request - pre op form-eye surgery Form received from fax on 1 floor and placed on MD desk (Dr. Toro) for completion. Completed form needs to be faxed to Dr. Alex Cook MD with [facility], [facility] at [phone]. Pt last office visit was in November. Surgeon's office asking for H&P within 30 days. Pt scheduled for surgery 02/20/22. Pt scheduled for appt on 02/10/22. Forms placed in upcoming appt folder. Route to [employer] when form completed for processing documented in this encounter [facility] 02-10-2022 History of Presen t illness Narrative Chief Complaint Patient presents with: F/U 3 Month Pre-Op Exam HPI Sean Hollis is a 76 year old male who presents here today for 3 month follow up and Pre op exam. Pt scheduled to have eye surgery done by Dr. Alex Cook on 02/20/22 for b/l upper lid blepharoplasty. Pt denies any issues with prior surgery or anesthesia. No bowel, GI, or urinary issues. He takes Flomax 0.4 mg daily for BPH. GERD: Doing well with Prilosec 20 mg daily. HTN: Checking BP at home occasionally, notes it's pretty good 136/80. Denies any chest pains, dizziness, or SOB. Taking Diovan 160 mg daily. 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 DM: Checks BS 1-2 times per week, FBS running little higher, average 170. No hypoglycemic episodes, no neuropathy sx. Currently taking Januvia 100 mg daily, Amaryl 4 mg 2 pills daily, Actos 30 mg daily and Metformin 1,000 mg BID. Lipid: Taking Lipitor 80 mg daily, tolerating well. Has been trying to watch diet and walk. He is trying to lose weight. This is stable since his last OV. Found out grapes are not good with his DM. Still working almost 40 hours per week. HM - Has Adv Dir/Living Will. Due for eye exam. Past medical history, appointments, medications, allergies reviewed. Previous Medical History PAST MEDICAL HISTORY Diagnosis Date Diaphragmatic hernia without mention of obstruction or gangrene Hiatal hernia Diverticulosis of colon (without mention of hemorrhage) Diverticulosis Essential hypertension, benign Gastric ulcer Other and unspecified hyperlipidemia Other and unspecified hyperlipidemia Psoriasis Type II or unspecified type diabetes mellitus without mention of complication, not stated as uncontrolled Previous Surgical History PAST SURGICAL HISTORY Procedure Laterality Date BLEPHAROPLASTY UPPER EYELID W/EXCESSIVE SKIN Bilateral 08/2021 COLONOSCOPY FLX DX W/COLLJ SPEC WHEN PFRMD 07/05/2003 Repeat in 10-2013 COLONOSCOPY FLX DX W/COLLJ SPEC WHEN PFRMD 06/21/2014 Colonoscopy PAST SURGICAL HISTORY OF Right 06/2021 cataract surgery PAST SURGICAL HISTORY OF Left 07/2021 Cataract surgery Family History FAMILY HISTORY Problem Relation Age of Onset Diabetes Father Blood Disease Father of blood clot after surgery Blood Disease Brother Factor V Leiden Blood Disease Sister Factor V Leiden Hypertension Mother Patient Allergies ALLERGIES No Known Allergies Current Medications Current Outpatient Medications on File Prior to Visit Medication Sig blood sugar diagnostic (BLOOD GLUCOSE TEST) test strip Test blood sugar(s) 1 times daily. Dx: Type 2 DM - Uncontrolled E11.65 Insulin: No; PT USES ONE TOUCH ULTRA 2. clotrimazole-betamethasone (LOTRISONE) cream Apply 1 application to affected area twice daily. As needed pioglitazone (ACTOS) 30 mg tablet Take 1 tablet by mouth once daily. tamsulosin (FLOMAX) 0.4 mg Take 1 capsule by mouth daily at bedtime. blood sugar diagnostic (BLOOD GLUCOSE TEST) test strip Test blood sugar(s) 1 times daily. Dx: Type 2 DM - Uncontrolled E11.65 Insulin: No; PT USES ONE TOUCH ULTRA 2. omeprazole (PRILOSEC) 20 mg capsule Take 1 capsule by mouth once daily. valsartan (DIOVAN) 160 mg tablet Take 1 tablet by mouth once daily. glimepiride (AMARYL) 4 mg tablet Take 2 tablets by mouth daily with breakfast. atorvastatin (LIPITOR) 80 mg tablet Take 1 tablet by mouth once daily. metFORMIN (GLUCOPHAGE) 1,000 mg tablet Take 1 tablet by mouth twice daily with meals. COMPOUNDED PRESCRIPTION BLOOD PRESSURE CUFF FOR HOME USE. DX: Hypertension multivitamin (MEN'S MULTI-VITAMIN) tablet Take 1 tablet by mouth once daily. Lancets lancets Test blood sugar(s) 1 daily. Dx: E11.9. Insulin: No Lancets (ACCU-CHEK MULTICLIX LANCET) lancets Use as instructed; Once daily; Dx 250.00 [place]-3 Fatty Acids-Vitamin E (FISH OIL) 1,000 mg ORAL Cap Take 2 capsules by mouth once daily. No current facility-administered medications on file prior to visit. Social History Social History Tobacco Use Smoking status: Never Smoker Smokeless tobacco: Never Used Vaping Use Vaping Use: Never used Substance Use Topics Alcohol use: No Drug use: No EXAM: BP 138/82 (BP Site: Left Arm, BP Position: Sitting, BP Cuff Size: Regular Adult) Pulse 72 Resp 16 Wt 82.3 kg (181 lb 6.4 oz) BMI 27.58 kg/m General Appearance: Well appearing, alert, in no acute distress, well-hydrated, well nourished.. Lungs: Lungs clear to auscultation. No wheezing, rhonchi, rales.. Heart: RRR without murmur, gallop, or rubs. No ectopy. Health Maintenance List BP CONTROLLED (<130/80) Never done DTAP,TDAP,TD(2 - Td or Tdap) due on 02/25/2014 ADVANCE DIRECTIVE DISCUSSION Never done URINE ALBUMIN:CREATININE RATIO due on 11/02/2021 DIABETIC FOOT EXAM due on 11/05/2021 COVID-19 VACCINE(4 - Booster for Pfizer series) due on 11/27/2021 DILATED RETINAL EXAM due on 01/16/2022 HBA1C due on 02/06/2022 DEPRESSION SCREENING due on 05/07/2022 LDL CHOLESTEROL due on 11/06/2022 ANNUAL PCP TEAM CHRONIC DISEASE VISIT due on 11/10/2022 INFLUENZA Completed HEPATITIS C SCREENING Completed PNEUMOVAX AGE 65 AND OVER WITH 5YR LOOKBACK Completed SHINGRIX VACCINE Completed MENINGOCOCCAL CONJUGATE Aged Out Data reviewed Appointment on 02/05/2022 Component Date Value Creatinine, Ur Random (U* 02/05/2022 84.6 Albumin, Urine Random 02/05/2022 43.3 Albumin/Creat Ratio 02/05/2022 51 (A) Glucose 02/05/2022 213 (A) BUN 02/05/2022 20 Creatinine 02/05/2022 0.92 Sodium 02/05/2022 140 Potassium 02/05/2022 4.3 Chloride 02/05/2022 102 CO2 02/05/2022 27 Anion Gap 02/05/2022 11 Calcium, Total 02/05/2022 9.6 Estimated Glomerular Adrian* 02/05/2022 86 Hemoglobin A1C 02/05/2022 8.4 (A) Estimated Average Glucose 02/05/2022 194 ASSESSMENT/PLAN: 1. Controlled type 2 diabetes mellitus without complication, without long-term current use of insulin (HCC) - ICD9: 250.00, ICD10: E11.9 (primary diagnosis) improved control - Continue current medications - Add Jardiance 10 mg to regimen for glucose control and renal protection - PIOGLITAZONE 30 MG TABLET - GLIMEPIRIDE 4 MG TABLET - METFORMIN 1,000 MG TABLET 2. Essential hypertension, benign - ICD9: 401.1, ICD10: I10 - good control - Continue current medication(s) - Recommended regular aerobic exercise. - Recommend home blood pressure monitoring, to bring results in on next visit - Goal of BP <130/80 - VALSARTAN 160 MG TABLET 3. Hyperlipidemia, unspecified hyperlipidemia type - ICD9: 272.4, ICD10: E78.5 - good control - Continue current medication. - ATORVASTATIN 80 MG TABLET 4. BPH with obstruction/lower urinary tract symptoms - ICD9: 600.01, 599.69, ICD10: N40.1, N13.8 - Stable - Continue current medication regimen. - TAMSULOSIN 0.4 MG CAPSULE 5. Dermatitis - ICD9: 692.9, ICD10: L30.9 - discussed skin care of rash - follow up if symptoms persist or worsen. - CLOTRIMAZOLE-BETAMETHASONE 1 %-0.05 % TOPICAL CREAM 6. Psoriasis - ICD9: 696.1, ICD10: L40.9 - Continue current medication regimen. - CLOTRIMAZOLE-BETAMETHASONE 1 %-0.05 % TOPICAL CREAM 7. Preop examination - ICD9: V72.84, ICD10: Z01.818 - Medically stable for planned procedure Follow up in 3 months with labs. I agree with the Chief Complaint, ROS, and Past Histories independently gathered by the clinical field support technician and the remaining scribed note accurately describes my personal service to the patient. Medical Decision Making: Problems: Moderate: 2+ stable chronic illnesses Data: Unique test result(s) reviewed: 3+ Unique test(s) ordered: 3+ Risk: Moderate: Drug management Medical Decision Making Level: 4 - Moderate Bernardo Toro MD The documentation for this note was completed by Prema Lopez Ma acting as scribe for Bernardo Toro MD. February 10, 2022 8:22 AM. Prema Lopez Ma documented in this encounter [facility] documented as of this encounter (statuses as of 02/10/2022) [facility] History of Past illness Narrative* Problem Noted Date Resolved Date Coagulopathy 11/11/2011 02/02/2017 Routine general medical exam ination at a health care facility 08/19/2011 12/07/2012 Overview: 08/19/2011, from Dr. Anderson Dermatofibremily 02/13/2011 12/07/2012 Neoplasm of uncertain behavior of skin 1 12/07/2012 Sciatica 07/27/2007 12/07/2012 Unspecified essential hypertension 03/23/2007 05/26/2012 SKIN TAGS, HEMORRHOIDAL 06/03/2006 12/08/19 13 Elevated blood pressure read ing without diagnosis of hypertension 07/29/2005 03/23/2007 Obesity, unspecified 07/29/2005 12/23/2009 Abdominal pain, epigastric 07/29 documented as of this encounter (statuses as of 02/10/2022) [facility] History of Past illness Narrative* Problem Noted Date Resolved Date Coagulopathy 11/11/2011 02/02/2017 Routine general medical exam ination at a health care facility 08/19/2011 12/07/2012 Overview: 08/19/2011, from Dr. Justin Thomas 02/13/2011 12/07/2012 Neoplasm of uncertain behavior of skin 1 12/07/2012 Sciatica 07/27/2007 12/07/2012 Unspecified essential hypertension 03/23/2007 05/26/2012 SKIN TAGS, HEMORRHOIDAL 06/03/2006 12/08/19 13 Elevated blood pressure read ing without diagnosis of hypertension 07/29/2005 03/23/2007 Obesity, unspecified 07/29/2005 12/23/2009 Abdominal pain, epigastric 07/29 documented as of this encounter (statuses as of 02/11/2022) [facility] History of Past illness Narrative* Problem Noted Date Resolved Date Coagulopathy 11/11/2011 02/02/2017 Routine general medical exam ination at a health care facility 08/19/2011 12/07/2012 Overview: 08/19/2011, from Dr. Justin Thomas 02/13/2011 12/07/2012 Neoplasm of uncertain behavior of skin 1 12/07/2012 Sciatica 07/27/2007 12/07/2012 Unspecified essential hypertension 03/23/2007 05/26/2012 SKIN TAGS, HEMORRHOIDAL 06/03/2006 12/08/19 13 Elevated blood pressure read ing without diagnosis of hypertension 07/29/2005 03/23/2007 Obesity, unspecified 07/29/2005 12/23/2009 Abdominal pain, epigastric 07/29 documented as of this encounter (statuses as of 02/12/2022) [facility] History of Past illness Narrative* Problem Noted Date Resolved Date Coagulopathy 11/11/2011 02/02/2017 Routine general medical exam ination at a health care facility 08/19/2011 12/07/2012 Overview: 08/19/2011, from Dr. Justin Curielofibremily 02/13/2011 12/07/2012 Neoplasm of uncertain behavior of skin 1 12/07/2012 Sciatica 07/27/2007 12/07/2012 Unspecified essential hypertension 03/23/2007 05/26/2012 SKIN TAGS, HEMORRHOIDAL 06/03/2006 12/08/19 13 Elevated blood pressure read ing without diagnosis of hypertension 07/29/2005 03/23/2007 Obesity, unspecified 07/29/2005 12/23/2009 Abdominal pain, epigastric 07/29 documented as of this encounter (statuses as of 03/04/2022) [facility] History of Past illness Narrative* Problem Noted Date Resolved Date Coagulopathy 11/11/2011 02/02/2017 Routine general medical exam ination at a health care facility 08/19/2011 12/07/2012 Overview: 08/19/2011, from Dr. Justin Curielofibremily 02/13/2011 12/07/2012 Neoplasm of uncertain behavior of skin 1 12/07/2012 Sciatica 07/27/2007 12/07/2012 Unspecified essential hypertension 03/23/2007 05/26/2012 SKIN TAGS, HEMORRHOIDAL 06/03/2006 12/08/19 13 Elevated blood pressure read ing without diagnosis of hypertension 07/29/2005 03/23/2007 Obesity, unspecified 07/29/2005 12/23/2009 Abdominal pain, epigastric 07/29 documented as of this encounter (statuses as of 05/13/2022) [facility] History of Past illness Narrative* Problem Noted Date Resolved Date Coagulopathy 11/11/2011 02/02/2017 Routine general medical exam ination at a [facility] care facility 08/19/2011 12/07/2012 Overview: 08/19/2011, from Dr. Anderson Dermatofibroma 02/13/2011 12/07/2012 Neoplasm of uncertain behavior of skin 1 12/07/2012 Sciatica 07/27/2007 12/07/2012 Unspecified essential hypertension 03/23/2007 05/26/2012 SKIN TAGS, HEMORRHOIDAL 06/03/2006 12/08/19 13 Elevated blood pressure read ing without diagnosis of hypertension 07/29/2005 03/23/2007 Obesity, unspecified 07/29/2005 12/23/2009 Abdominal pain, epigastric 07/29 documented as of this encounter (statuses as of 06/02/2022) [facility] History of Past illness Narrative* Problem Noted Date Resolved Date Coagulopathy 11/11/2011 02/02/2017 Routine general medical exam ination at a [facility] care facility 08/19/2011 12/07/2012 Overview: 08/19/2011, from Dr. Anderson Dermatofibroma 02/13/2011 12/07/2012 Neoplasm of uncertain behavior of skin 1 12/07/2012 Sciatica 07/27/2007 12/07/2012 Unspecified essential hypertension 03/23/2007 05/26/2012 SKIN TAGS, HEMORRHOIDAL 06/03/2006 12/08/19 13 Elevated blood pressure read ing without diagnosis of hypertension 07/29/2005 03/23/2007 Obesity, unspecified 07/29/2005 12/23/2009 Abdominal pain, epigastric 07/29 documented as of this encounter (statuses as of 06/27/2022) [facility] History of Past illness Narrative* Problem Noted Date Resolved Date Coagulopathy 11/11/2011 02/02/2017 Routine general medical exam ination at a health care facility 08/19/2011 12/07/2012 Overview: 08/19/2011, from Dr. Anderson Dermatofibremily 02/13/2011 12/07/2012 Neoplasm of uncertain behavior of skin 1 12/07/2012 Sciatica 07/27/2007 12/07/2012 Unspecified essential hypertension 03/23/2007 05/26/2012 SKIN TAGS, HEMORRHOIDAL 06/03/2006 12/08/19 13 Elevated blood pressure read ing without diagnosis of hypertension 07/29/2005 03/23/2007 Obesity, unspecified 07/29/2005 12/23/2009 Abdominal pain, epigastric 07/29 documented as of this encounter (statuses as of 08/12/2022) [facility] History of Past illness Narrative* Problem Noted Date Resolved Date Coagulopathy 11/11/2011 02/02/2017 Routine general medical exam ination at a health care facility 08/19/2011 12/07/2012 Overview: 08/19/2011, from Dr. Justin Curielofibremily 02/13/2011 12/07/2012 Neoplasm of uncertain behavior of skin 1 12/07/2012 Sciatica 07/27/2007 12/07/2012 Unspecified essential hypertension 03/23/2007 05/26/2012 SKIN TAGS, HEMORRHOIDAL 06/03/2006 12/08/19 13 Elevated blood pressure read ing without diagnosis of hypertension 07/29/2005 03/23/2007 Obesity, unspecified 07/29/2005 12/23/2009 Abdominal pain, epigastric 07/29 documented as of this encounter (statuses as of 11/11/2022) [facility] History of Past illness Narrative* Problem Noted Date Resolved Date Coagulopathy 11/11/2011 02/02/2017 Routine general medical exam ination at a health care facility 08/19/2011 12/07/2012 Overview: 08/19/2011, from Dr. Justin Curielofibremily 02/13/2011 12/07/2012 Neoplasm of uncertain behavior of skin 1 12/07/2012 Sciatica 07/27/2007 12/07/2012 Unspecified essential hypertension 03/23/2007 05/26/2012 SKIN TAGS, HEMORRHOIDAL 06/03/2006 12/08/19 13 Elevated blood pressure read ing without diagnosis of hypertension 07/29/2005 03/23/2007 Obesity, unspecified 07/29/2005 12/23/2009 Abdominal pain, epigastric 07/29 documented as of this encounter (statuses as of 11/12/2022) [facility] History of Past illness Narrative* Problem Noted Date Resolved Date Coagulopathy 11/11/2011 02/02/2017 Routine general medical exam ination at a health care facility 08/19/2011 12/07/2012 Overview: 08/19/2011, from Dr. Anderson Dermatofibroma 02/13/2011 12/07/2012 Neoplasm of uncertain behavior of skin 1 12/07/2012 Sciatica 07/27/2007 12/07/2012 Unspecified essential hypertension 03/23/2007 05/26/2012 SKIN TAGS, HEMORRHOIDAL 06/03/2006 12/08/19 13 Elevated blood pressure read ing without diagnosis of hypertension 07/29/2005 03/23/2007 Obesity, unspecified 07/29/2005 12/23/2009 Abdominal pain, epigastric 07/29 documented as of this encounter (statuses as of 2022) [facility] History of Past illness Narrative* Problem Noted Date Resolved Date Coagulopathy 11/11/2011 02/02/2017 Routine general medical exam ination at a health care facility 08/19/2011 12/07/2012 Overview: 08/19/2011, from Dr. Anderson Dermatofibroma 02/13/2011 12/07/2012 Neoplasm of uncertain behavior of skin 1 12/07/2012 Sciatica 07/27/2007 12/07/2012 Unspecified essential hypertension 03/23/2007 05/26/2012 SKIN TAGS, HEMORRHOIDAL 06/03/2006 12/08/19 13 Elevated blood pressure read ing without diagnosis of hypertension 07/29/2005 03/23/2007 Obesity, unspecified 07/29/2005 12/23/2009 Abdominal pain, epigastric 07/29 documented as of this encounter (statuses as of 12/04/2022) [facility]03-[facility]2012 History of Past illness Narrative* Problem Noted Date Resolved Date Coagulopathy 11/11/2011 02/02/2017 Routine general medical exam ination at a health care facility 08/19/2011 12/07/2012 Overview: 08/19/2011, from Dr. Justin Thomas 02/13/2011 12/07/2012 Neoplasm of uncertain behavior of skin 1 12/07/2012 Sciatica 07/27/2007 12/07/2012 Unspecified essential hypertension 03/23/2007 05/26/2012 SKIN TAGS, HEMORRHOIDAL 06/03/2006 12/08/19 13 Elevated blood pressure read ing without diagnosis of hypertension 07/29/2005 03/23/2007 Obesity, unspecified 07/29/2005 12/23/2009 Abdominal pain, epigastric 07/29 documented as of this encounter (statuses as of 02/24/2023) [facility] History of Past illness Narrative* Problem Noted Date Resolved Date Coagulopathy 11/11/2011 02/02/2017 Routine general medical exam ination at a health care facility 08/19/2011 12/07/2012 Overview: 08/19/2011, from Dr. Justin Thomas 02/13/2011 12/07/2012 Neoplasm of uncertain behavior of skin 1 12/07/2012 Sciatica 07/27/2007 12/07/2012 Unspecified essential hypertension 03/23/2007 05/26/2012 SKIN TAGS, HEMORRHOIDAL 06/03/2006 12/08/19 13 Elevated blood pressure read ing without diagnosis of hypertension 07/29/2005 03/23/2007 Obesity, unspecified 07/29/2005 12/23/2009 Abdominal pain, epigastric 07/29 documented as of this encounter (statuses as of 02/24/2023) [facility] History of Past illness Narrative* Problem Noted Date Diagnosed Date Resolved Date Coagulopathy 11/11/2011 02/02/2017 Routine general medical exam ination at a health care facility 08/19/2011 12/07/2012 Overview: 08/19/2011, from Dr. Justin Thomas 02/13/2011 12/07/2012 Neoplasm of uncertain behavior of skin 02/05/2011 12/07/2012 Sciatica 07/27/2007 12/07/2012 Unspecified essential hypertension 03/23/2007 05/26/2012 SKIN TAGS, HEMORRHOIDAL 06/03/20060 11/2012 Elevated blood pressure read ing without diagnosis of hypertension 07/29/2005 03/23/2007 Obesity, unspecified 07/29/2005 010 Abdominal pain, epigastric 1 09/28/2004 documented as of this encounter (statuses as of 03/16/2023) [facility] History of Past illness Narrative* Problem Noted Date Diagnosed Date Resolved Date Coagulopathy 11/11/2011 02/02/2017 Routine general medical exam ination at a health care facility 08/19/2011 12/07/2012 Overview: 08/19/2011, from Dr. Anderson Dermatofibroma 02/13/2011 12/07/2012 Neoplasm of uncertain behavior of skin 02/05/2011 12/07/2012 Sciatica 07/27/2007 12/07/2012 Unspecified essential hypertension 03/23/2007 05/26/2012 SKIN TAGS, HEMORRHOIDAL 06/03/20060 11/2012 Elevated blood pressure read ing without diagnosis of hypertension 07/29/2005 03/23/2007 Obesity, unspecified 07/29/2005 010 Abdominal pain, epigastric 1 09/28/2004 documented as of this encounter (statuses as of 04/19/2023) [facility] History of Past illness Narrative* Problem Noted Date Diagnosed Date Resolved Date Coagulopathy 11/11/2011 02/02/2017 Routine general medical exam ination at a health care facility 08/19/2011 12/07/2012 Overview: 08/19/2011, from Dr. Anderson Dermatofibroma 02/13/2011 12/07/2012 Neoplasm of uncertain behavior of skin 02/05/2011 12/07/2012 Sciatica 07/27/2007 12/07/2012 Unspecified essential hypertension 03/23/2007 05/26/2012 SKIN TAGS, HEMORRHOIDAL 06/03/20060 11/2012 Elevated blood pressure read ing without diagnosis of hypertension 07/29/2005 03/23/2007 Obesity, unspecified 07/29/2005 010 Abdominal pain, epigastric 1 09/28/2004 documented as of this encounter (statuses as of 04/30/2023) [facility] History of Past illness Narrative* Problem Noted Date Diagnosed Date Resolved Date Coagulopathy 11/11/2011 02/02/2017 Routine general medical exam ination at a health care facility 08/19/2011 12/07/2012 Overview: 08/19/2011, from Dr. Anderson Dermatofibroma 02/13/2011 12/07/2012 Neoplasm of uncertain behavior of skin 02/05/2011 12/07/2012 Sciatica 07/27/2007 12/07/2012 Unspecified essential hypertension 03/23/2007 05/26/2012 SKIN TAGS, HEMORRHOIDAL 06/03/2006 04/0 11/2012 Elevated blood pressure read ing without diagnosis of hypertension 07/29/2005 03/23/2007 Obesity, unspecified 07/29/2005 010 Abdominal pain, epigastric 1 09/28/2004 documented as of this encounter (statuses as of 05/07/2023) [facility] History of Past illness Narrative* Problem Noted Date Diagnosed Date Resolved Date Coagulopathy 11/11/2011 02/02/2017 Routine general medical exam ination at a health care facility 08/19/2011 12/07/2012 Overview: 08/19/2011, from Dr. Anderson Dermatofibroma 02/13/2011 12/07/2012 Neoplasm of uncertain behavior of skin 02/05/2011 12/07/2012 Sciatica 07/27/2007 12/07/2012 Unspecified essential hypertension 03/23/2007 05/26/2012 SKIN TAGS, HEMORRHOIDAL 06/03/2006 04/0 11/2012 Elevated blood pressure read ing without diagnosis of hypertension 07/29/2005 03/23/2007 Obesity, unspecified 07/29/2005 010 Abdominal pain, epigastric 1 09/28/2004 documented as of this encounter (statuses as of 05/12/2023) [facility] History of Past illness Narrative* Problem Noted Date Diagnosed Date Resolved Date Coagulopathy 11/11/2011 02/02/2017 Routine general medical exam ination at a health care facility 08/19/2011 12/07/2012 Overview: 08/19/2011, from Dr. Anderson Dermatofibroma 02/13/2011 12/07/2012 Neoplasm of uncertain behavior of skin 02/05/2011 12/07/2012 Sciatica 07/27/2007 12/07/2012 Unspecified essential hypertension 03/23/2007 05/26/2012 SKIN TAGS, HEMORRHOIDAL 06/03/2006 040 11/2012 Elevated blood pressure read ing without diagnosis of hypertension 07/29/2005 03/23/2007 Obesity, unspecified 07/29/2005 010 Abdominal pain, epigastric 1 09/28/2004 documented as of this encounter (statuses as of 06/18/2023) [facility] History of Past illness Narrative* Problem Noted Date Diagnosed Date Resolved Date Coagulopathy 11/11/2011 02/02/2017 Routine general medical exam ination at a health care facility 08/19/2011 12/07/2012 Overview: 08/19/2011, from Dr. Anderson Dermatofibroma 02/13/2011 12/07/2012 Neoplasm of uncertain behavior of skin 02/05/2011 12/07/2012 Sciatica 07/27/2007 12/07/2012 Unspecified essential hypertension 03/23/2007 05/26/2012 SKIN TAGS, HEMORRHOIDAL 06/03/20060 11/2012 Elevated blood pressure read ing without diagnosis of hypertension 07/29/2005 03/23/2007 Obesity, unspecified 07/29/2005 010 Abdominal pain, epigastric 1 09/28/2004 documented as of this encounter (statuses as of 06/24/2023) [facility] History of Past illness Narrative* Problem Noted Date Diagnosed Date Resolved Date Coagulopathy 11/11/2011 02/02/2017 Routine general medical exam ination at a health care facility 08/19/2011 12/07/2012 Overview: 08/19/2011, from Dr. Anderson Dermatofibremily 02/13/2011 12/07/2012 Neoplasm of uncertain behavior of skin 02/05/2011 12/07/2012 Sciatica 07/27/2007 12/07/2012 Unspecified essential hypertension 03/23/2007 05/26/2012 SKIN TAGS, HEMORRHOIDAL 06/03/20060 11/2012 Elevated blood pressure read ing without diagnosis of hypertension 07/29/2005 03/23/2007 Obesity, unspecified 07/29/2005 010 Abdominal pain, epigastric 1 09/28/2004 documented as of this encounter (statuses as of 07/11/2023) [facility] History of Past illness Narrative* Problem Noted Date Diagnosed Date Resolved Date Coagulopathy 11/11/2011 02/02/2017 Routine general medical exam ination at a health care facility 08/19/2011 12/07/2012 Overview: 08/19/2011, from Dr. Anderson Dermatofibroma 02/13/2011 12/07/2012 Neoplasm of uncertain behavior of skin 02/05/2011 12/07/2012 Sciatica 07/27/2007 12/07/2012 Unspecified essential hypertension 03/23/2007 05/26/2012 SKIN TAGS, HEMORRHOIDAL 06/03/20060 11/2012 Elevated blood pressure read ing without diagnosis of hypertension 07/29/2005 03/23/2007 Obesity, unspecified 07/29/2005 010 Abdominal pain, epigastric 1 09/28/2004 documented as of this encounter (statuses as of 07/15/2023) [facility] Diagnosis Controlled type 2 diabetes mellitus without complication, without long-term current use of insulin (HCC)- Primary Essential hypertension, benign Hyperlipidemia, unspecified hyperlipidemia type BPH with obstruction/lower urinary tract symptoms Hypertrophy of prostate with urinary obstruction and other lower urinary tract symptoms (LUTS) Dermatitis Contact dermatitis and other eczema, due to unspecified cause Psoriasis Other psoriasis Preop examination Preoperative examination, unspecified Gastroesophageal reflux disease, unspecified whether esophagitis present [facility] Diagnosis Controlled type 2 diabetes mellitus without complication, without long-term current use of insulin (HCC) [facility] Diagnosis Controlled type 2 diabetes mellitus without complication, without long-term current use of insulin (HCC)- Primary Essential hypertension, benign Hyperlipidemia, unspecified hyperlipidemia type BPH with obstruction/lower urinary tract symptoms Hypertrophy of prostate with urinary obstruction and other lower urinary tract symptoms (LUTS) Gastroesophageal reflux disease, unspecified whether esophagitis present Dermatitis Contact dermatitis and other eczema, due to unspecified cause Psoriasis Other psoriasis [facility]* Diagnosis Yeast dermatitis of penis- Primary Candidiasis of other urogenital sites [facility]* Diagnosis Ankle wound, left, initial encounter- Primary Canker sore Oral aphthae [facility]* Diagnosis Controlled type 2 diabetes mellitus without complication, without long-term current use of insulin (HCC)- Primary Essential hypertension, benign Mixed hyperlipidemia Gastroesophageal reflux disease, unspecified whether esophagitis present BPH with obstruction/lower urinary tract symptoms Hypertrophy of prostate with urinary obstruction and other lower urinary tract symptoms (LUTS) documented in this encounter [facility] note* Diagnosis Controlled type 2 diabetes mellitus without complication, without long-term current use of insulin (HCC)- Primary [facility]* Diagnosis Controlled type 2 diabetes mellitus without complication, without long-term current use of insulin (HCC)- Primary documented in this encounter [facility] note* Diagnosis Controlled type 2 diabetes mellitus without complication, without long-term current use of insulin (HCC)- Primary [facility]* Diagnosis Controlled type 2 diabetes mellitus without complication, without long-term current use of insulin (HCC) [facility]* Diagnosis Controlled type 2 diabetes mellitus without complication, without long-term current use of insulin (HCC)- Primary [facility]* Diagnosis Controlled type 2 diabetes mellitus without complication, without long-term current use of insulin (HCC) documented in this encounter [facility] note* Diagnosis Controlled type 2 diabetes mellitus without complication, without long-term current use of insulin (HCC)- Primary Essential hypertension, benign Hyperlipidemia, unspecified hyperlipidemia type Gastroesophageal reflux disease, unspecified whether esophagitis present BPH with obstruction/lower urinary tract symptoms Hypertrophy of prostate with urinary obstruction and other lower urinary tract symptoms (LUTS) Yeast dermatitis of penis Candidiasis of other urogenital sites Nail fungus Dermatophytosis of nail documented in this encounter [facility] note* Diagnosis Right shoulder pain, unspecified chronicity- Primary documented in this encounter [facility] note* Diagnosis Left shoulder pain, unspecified chronicity- Primary Chronic pain of both shoulders Pain in joint, shoulder region Shoulder impingement Other affections of shoulder region, not elsewhere classified documented in this encounter [facility] note* Diagnosis Right shoulder pain, unspecified chronicity Left shoulder pain, unspecified chronicity documented in this encounter [facility] note* Diagnosis Controlled type 2 diabetes mellitus without complication, without long-term current use of insulin (HCC)- Primary documented in this encounter [facility] for referral (narrative)* Diagnostic Procedure Only (Routine) - Pending Review Specialty Diagnoses / Procedures Referred By Contac t Referred To Contact XR IMAGING Diagnoses Right shoulder pain, unspecified chronicity Procedures XR SHOULDER GENERAL 3V OR MORE AP/TRUE AP/OTHER RIGHT RADEX SHOULDER COMPLETE MINIMUM 2 VIEWS Joe Salomon MD [address] [place] [address] [place] [address] Referral ID Status Reason Start Date Expiration Date Visits Requested Visits Authorized [id number] Pending Review Auto-Generat ed Referral 07/16/2024 1 1 [facility] for referral (narrative)* Diagnostic Procedure Only (Routine) - Closed Specialty Diagnoses / Procedures Referred By Contac t Referred To Contact XR IMAGING Diagnoses Left shoulder pain, unspecified chronicity Procedures XR SHOULDER GENERAL 3V OR MORE AP/TRUE AP/OTHER LEFT RADEX SHOULDER COMPLETE MINIMUM 2 VIEWS Joe Salomon MD [address] [place] [address] [place] [address] Referral ID Status Reason Start Date Expiration Date V isits Requested Visits Authorized [id number] Closed Auto-Generate d Referral 06/24/2023 07/23/2024 1 1 [facility] for referral (narrative)* Diagnostic Procedure Only (Routine) - Closed Specialty Diagnoses / Procedures Referred By Contac t Referred To Contact XR IMAGING Diagnoses Left shoulder pain, unspecified chronicity Procedures XR SHOULDER GENERAL 3V OR MORE AP/TRUE AP/OTHER LEFT RADEX SHOULDER COMPLETE MINIMUM 2 VIEWS Joe Salomon MD [address] [place] [address] [place] [address] Referral ID Status Reason Start Date Expiration Date V isits Requested Visits Authorized [id number] Closed Auto-Generate d Referral 06/24/2023 07/23/2024 1 1 * Diagnostic Procedure Only (Routine) - Closed Specialty Diagnoses / Procedures Referred By Contac t Referred To Contact XR IMAGING Diagnoses Right shoulder pain, unspecified chronicity Procedures XR SHOULDER GENERAL 3V OR MORE AP/TRUE AP/OTHER RIGHT RADEX SHOULDER COMPLETE MINIMUM 2 VIEWS Joe Salomon MD [address] [place] [address] [place] [address] Referral ID Status Reason Start Date Expiration Date V isits Requested Visits Authorized [id number] Closed Auto-Generate d Referral 06/17/2023 07/16/2024 1 1 [facility] Diagnostic Procedure Only (Routine) - Closed Specialty Diagnoses / Procedures Referred By Contac t Referred To Contact XR IMAGING Diagnoses Right shoulder pain, unspecified chronicity Procedures XR SHOULDER GENERAL 3V OR MORE AP/TRUE AP/OTHER RIGHT RADEX SHOULDER COMPLETE MINIMUM 2 VIEWS Joe Salomon MD [address] [place] [address] [place] [address] Referral ID Status Reason Start Date Expiration Date V isits Requested Visits Authorized [id number] Closed Auto-Generate d Referral 06/17/2023 07/16/2024 1 1 [facility] Reason for Referral Specialty Diagnoses / Procedures Referred By Contac t Referred To Contact Podiatry Diagnoses Nail fungus Procedures CONSULT TO PODIATRY OFFICE/OUTPATIENT [facility] MDM 60-74 MINUTES Radha Szymanski APRN.[employer] [address] [place] [address] Referral ID Status Reason Start Date Expiration Date Visits Requested Visits Authorized [id number] Authorized PCP Requested Referral 05/12/2023 05/11/2024 1 1 Medications Administered Section Inactive Administered Medications - up to 3 most recent administrations Medication Order MAR Action Action Date Dose Rate Site betamethasone acetate-betamethasone sodium phosphate 6 mg injection (CELESTONE) 6 mg, Injection - FOR ORTHO USE ONLY, ONCE, 1 dose, Starting on Anais 10 at 0823, Until Anais 06/24/23 at 0823 Given 06/24/2023 8:23 AM EDT 6 mg Shoulder, Left betamethasone acetate-betamethasone sodium phosphate 6 mg injection (CELESTONE) 6 mg, Injection - FOR ORTHO USE ONLY, ONCE, 1 dose, Starting on Anais 06/24/23 at 0823, Until Anais 06/24/23 at 0823 Given 06/24/2023 8:23 AM EDT 6 mg Shoulder, Right lidocaine (PF) 10 mg/mL (1 %) 5 mL injection (XYLOCAINE) 5 mL, Injection - FOR ORTHO USE ONLY, ONCE, 1 dose, Starting on Anais 06/24/23 at 0823, Until Anais 06/24/23 at 0823 Given 06/24/2023 8:23 AM EDT 5 mL Shoulder, Left lidocaine (PF) 10 mg/mL (1 %) 5 mL injection (XYLOCAINE) 5 mL, Injection - FOR ORTHO USE ONLY, ONCE, 1 dose, Starting on Anais 06/24/23 at 0823, Until Anais 06/24/23 at 0823 Given 06/24/2023 8:23 AM EDT 5 mL Shoulder, Right Summary Purpose Family History No Family History Records FoundNo Family History Records Found Advance Directives No Advanced Directives Records FoundNo Advanced Directives Records Found Additional Source Comments Source Comments (unrecognize d section and content) In the event this informatio n is protected by the Federal Confidentiality of Alcohol and Drug Abuse Patient Records regulations: The Federal rules restrict any use of the information to criminally investigate or prosecute any alcohol or drug abuse patient.[facility] the event this information is protected by the Federal Confidentiality of Alcohol and Drug Abuse Patient Records regulations: The Federal rules restrict any use of the information to criminally investigate or prosecute any alcohol or drug abuse patient.[facility] the event this information is protected by the Federal Confidentiality of Alcohol and Drug Abuse Patient Records regulations: The Federal rules restrict any use of the information to criminally investigate or prosecute any alcohol or drug abuse patient.[facility] the event this information is protected by the Federal Confidentiality of Alcohol and Drug Abuse Patient Records regulations: The Federal rules restrict any use of the information to criminally investigate or prosecute any alcohol or drug abuse patient.[facility] the event this information is protected by the Federal Confidentiality of Alcohol and Drug Abuse Patient Records regulations: The Federal rules restrict any use of the information to criminally investigate or prosecute any alcohol or drug abuse patient.[facility] the event this information is protected by the Federal Confidentiality of Alcohol and Drug Abuse Patient Records regulations: The Federal rules restrict any use of the information to criminally investigate or prosecute any alcohol or drug abuse patient.[facility] the event this information is protected by the Federal Confidentiality of Alcohol and Drug Abuse Patient Records regulations: The Federal rules restrict any use of the information to criminally investigate or prosecute any alcohol or drug abuse patient.[facility] the event this information is protected by the Federal Confidentiality of Alcohol and Drug Abuse Patient Records regulations: The Federal rules restrict any use of the information to criminally investigate or prosecute any alcohol or drug abuse patient.[facility] the event this information is protected by the Federal Confidentiality of Alcohol and Drug Abuse Patient Records regulations: The Federal rules restrict any use of the information to criminally investigate or prosecute any alcohol or drug abuse patient.[facility] the event this information is protected by the Federal Confidentiality of Alcohol and Drug Abuse Patient Records regulations: The Federal rules restrict any use of the information to criminally investigate or prosecute any alcohol or drug abuse patient.[facility] the event this information is protected by the Federal Confidentiality of Alcohol and Drug Abuse Patient Records regulations: The Federal rules restrict any use of the information to criminally investigate or prosecute any alcohol or drug abuse patient.[facility] the event this information is protected by the Federal Confidentiality of Alcohol and Drug Abuse Patient Records regulations: The Federal rules restrict any use of the information to criminally investigate or prosecute any alcohol or drug abuse patient.[facility] the event this information is protected by the Federal Confidentiality of Alcohol and Drug Abuse Patient Records regulations: The Federal rules restrict any use of the information to criminally investigate or prosecute any alcohol or drug abuse patient.[facility] the event this information is protected by the Federal Confidentiality of Alcohol and Drug Abuse Patient Records regulations: The Federal rules restrict any use of the information to criminally investigate or prosecute any alcohol or drug abuse patient.[facility] the event this information is protected by the Federal Confidentiality of Alcohol and Drug Abuse Patient Records regulations: The Federal rules restrict any use of the information to criminally investigate or prosecute any alcohol or drug abuse patient.[facility] the event this information is protected by the Federal Confidentiality of Alcohol and Drug Abuse Patient Records regulations: The Federal rules restrict any use of the information to criminally investigate or prosecute any alcohol or drug abuse patient.[facility] the event this information is protected by the Federal Confidentiality of Alcohol and Drug Abuse Patient Records regulations: The Federal rules restrict any use of the information to criminally investigate or prosecute any alcohol or drug abuse patient.[facility] the event this information is protected by the Federal Confidentiality of Alcohol and Drug Abuse Patient Records regulations: The Federal rules restrict any use of the information to criminally investigate or prosecute any alcohol or drug abuse patient.[facility] the event this information is protected by the Federal Confidentiality of Alcohol and Drug Abuse Patient Records regulations: The Federal rules restrict any use of the information to criminally investigate or prosecute any alcohol or drug abuse patient.[facility] the event this information is protected by the Federal Confidentiality of Alcohol and Drug Abuse Patient Records regulations: The Federal rules restrict any use of the information to criminally investigate or prosecute any alcohol or drug abuse patient.[facility] the event this information is protected by the Federal Confidentiality of Alcohol and Drug Abuse Patient Records regulations: The Federal rules restrict any use of the information to criminally investigate or prosecute any alcohol or drug abuse patient.[facility] Hospital[facility] the event this information is protected by the Federal Confidentiality of Alcohol and Drug Abuse Patient Records regulations: The Federal rules restrict any use of the information to criminally investigate or prosecute any alcohol or drug abuse patient.[facility] the event this information is protected by the Federal Confidentiality of Alcohol and Drug Abuse Patient Records regulations: The Federal rules restrict any use of the information to criminally investigate or prosecute any alcohol or drug abuse patient.[facility] the event this information is protected by the Federal Confidentiality of Alcohol and Drug Abuse Patient Records regulations: The Federal rules restrict any use of the information to criminally investigate or prosecute any alcohol or drug abuse patient.[facility] Reason for Visit (unrecogniz ed section and content) Reason Comments pre op form Eye Surgery Reason Comments Medication Problem Jardiance Reason Onset Date Comments Refill Request 03/04/2022 Reason Comments Follow Up 3 month follow up Reason Comments Rash On penis Reason Comments Musculoskeletal Problem Left leg red/swe lling 3 weeks ago hit leg on gate area 1cm dark area surrounding skin red Reason Comments Follow Up 3 month DM Reason Comments Follow Up 3 month follow up fo r DM Reason Comments Orders Reason Comments Patient Assistance Reason Comments pt assist form Reason Comments Medication Question Reason Comments Orders Medicare part b - te st strips Reason Onset Date Comments Refill Request 04/18/2023 Reason Comments Follow Up 3 month follow up fo r DM and Labs Reason Comments Pain Established Patient Last seen 09/19/20 Impingement Syndrome r ight shoulder with injection given Care Teams (unrecognized sec tion and content) Children Counselor Relationship Specialty Start Date End Date Bernardo Toro MD [address] [place] [address] PCP - General Family Practice 05/26/12 Adriano Figueroa [address] [address] Physician Optometry 09/09/20 Children Counselor Relationship Specialty Start Date End Date Bernardo Toro MD [address] [place] [address] PCP - General Family Practice 05/26/12 Adriano Figueroa [address] [address] Physician Optometry 09/09/20 Children Counselor Relationship Specialty Start Date End Date Bernardo Toro MD [address] [place], [place] [id number] PCP - General Family Practice 05/26/12 Adriano Figueroa [address] [id number] Physician Optometry 09/09/20 Children Counselor Relationship Specialty Start Date End Date Bernardo Toro MD [address] [place] [address] PCP - General Family Practice 05/26/12 Adriano Figueroa [address] [place] [phone] Physician Optometry 09/09/20 Children Counselor Relationship Specialty Start Date End Date Bernardo Toro MD [address] [place] [address] PCP - General Family Medicine 05/26/12 Adriano Figueroa [address] [address] Physician Optometry 09/09/20 Children Counselor Relationship Specialty Start Date End Date Bernardo Toro MD [address] [place] [address] PCP - General Family Medicine 05/26/12 Adriano Figueroa Dominique [address] [place] [address] Physician Optometry 09/09/20 Children Counselor Relationship Specialty Start Date End Date Bernardo Toro MD [address] [place] [address] PCP - General Family Medicine 05/26/12 Adriano Figueroa [address] [place] [address] Physician Optometry 09/09/20 Children Counselor Relationship Specialty Start Date End Date Bernardo Toro MD [address] [place] [address] PCP - General Family Medicine 05/26/12 Adriano Figueroa [address] [address] Physician Optometry 09/09/20 Children Counselor Relationship Specialty Start Date End Date Bernardo Toro MD [address] [place] [address] PCP - General Family Medicine 05/26/12 Adriano Figueroa [address] [place] [address] Physician Optometry 09/09/20 Children Counselor Relationship Specialty Start Date End Date Bernrado Toro MD [address] [place] [address] PCP - General Family Medicine 05/26/12 Adriano Figueroa [address] [place] [address] Physician Optometry 09/09/20 Children Counselor Relationship Specialty Start Date End Date Bernardo Toro MD [address] [place] [address] PCP - General Family Medicine 05/26/12 Adriano Figueroa [address] [place] [address] Physician Optometry 09/09/20 Children Counselor Relationship Specialty Start Date End Date Bernardo Toro MD [address] [place] [address] PCP - General Family Medicine 05/26/12 Adriano Figueroa [address] [place] [address] Physician Optometry 09/09/20 Children Counselor Relationship Specialty Start Date End Date Bernardo Toro MD [address] [place] [address] PCP - General Family Medicine 05/26/12 Adriano Figueroa [address] [place] [address] Physician Optometry 09/09/20 Children Counselor Relationship Specialty Start Date End Date Bernardo Toro MD [address] [place] [address] PCP - General Family Medicine 05/26/12 Adriano Figueroa [address] [place] [address] Physician Optometry 09/09/20 Children Counselor Relationship Specialty Start Date End Date Bernardo Toro MD [address] [place] [address] PCP - General Family Medicine 05/26/12 Adriano Figueroa [address] [place] [address] Physician Optometry 09/09/20 Children Counselor Relationship Specialty Start Date End Date Bernardo Toro MD [address] [place] [address] PCP - General Family Medicine 05/26/12 Adriano Figueroa, OD [address] [place] [address] Physician Optometry 09/09/20 Children Counselor Relationship Specialty Start Date End Date Bernardo Toro MD [address] [place] [address] PCP - General Family Medicine 05/26/12 Adriano Figueroa, OD [address] [place] [address] [phone] Physician Optometry 09/09/20 Children Counselor Relationship Specialty Start Date End Date Bernardo Toro MD [address] [place], [place] [address] PCP - General Family Medicine 05/26/12 Adriano Figueroa, OD [address] [place] [address] [phone] Physician Optometry 09/09/20 Children Counselor Relationship Specialty Start Date End Date Bernardo Toro MD [address] [place], [place] [address] PCP - General Family Medicine 05/26/12 Adriano Figueroa, OD [address] [place] [address] [phone] Physician Optometry 09/09/20 (unrecognized sect ion and content) No Status Records FoundNo Status Records Found INFORMATION SOURCE (unrecogn ized section and content) DATE CREATED AUTHOR AUTHOR'S ORGANIZ ATION 08/23/2023 [facility] FOR RECORDS PERTAINING TO PATIENTS WHO ARE OR HAVE BEEN ENROLLED IN A CHEMICAL DEPENDENCY/SUBSTANCEABUSE PROGRAM, SOME INFORMATION MAY BE OMITTED. This clinical summary was aggregated from multiple sources. Caution should be exercised in using it in the provision of clinical care. This summary normalizes information from multiple sources, and as a consequence, information in this document may materially change the coding, format and clinical context of patient data. In addition, data may be omitted in some cases. CLINICAL DECISIONS SHOULD BE BASED ON THE PRIMARY CLINICAL RECORDS. [employer] provides no warranty or guarantee of the accuracy or completeness of information in this document.
[2023-09-01] MEDS: Atorvastatin Calcium 80 MG Tablet PO (21:18)
[2023-09-01 21:46] LABS: Bedside Glucose 281 mg/dL (74-106)
[2023-09-02 02:30] VITALS: BP 140/84; PULSE 76; RESP 20; TEMP 36.8; O2SAT 96
[2023-09-02 02:41] VITALS: BMI 31.3
[2023-09-02 02:47] LABS: Absolute Lymphocyte Count 0.95 X10^3/uL (0.83-4.51); Absolute Neutrophil Count 4.6 X10^3/uL (2.0-7.7); Basophil# 0.01 X10^3/uL; Basophil% 0.2 % (0-1); Eosinophil# 0.23 X10^3/uL; Eosinophils% 3.7 % (0-5); Hematocrit 35.8 % (40-54); Hemoglobin 11.8 g/dL (13.0-16.5); Lymphocyte # 0.95 X10^3/ul (0.83-4.51); Lymphocyte % 15.1 % (19-41); Mean Corpuscular Hgb 27.3 pg (27.0-32.0); Mean Corpuscular Volume 82.7 fL (80-94); Mean Platelet Vol. 10.1 fl (6.2-12.0); Monocyte# 0.46 X10^3/uL; Monocyte% 7.3 % (0-10); NRBC Flagged by Analyzer 0 % (0-5); Neutrophil # 4.57 X10^3/uL (2.7-7.7); Neutrophil % 72.4 % (47-70); Platelet Count 171 K/mm3 (150-450); RBC Distribution Width CV 14.5 % (11.6-14.6); RBC Distribution Width SD 43.4 fl (35.1-43.9); Red Blood Count 4.33 M/mm3 (4.6-6.2); White Blood Count 6.3 K/mm3 (4.4-11.0)
[2023-09-02 03:05] LABS: Anion Gap 9 (5-15); BUN 30 mg/dL (7-18); BUN/Creat Ratio 23.8 RATIO (10-20); Calcium,Total 8.4 mg/dL (8.5-10.1); Chloride 99 mmol/L (98-107); Creatinine, Serum 1.26 mg/dL (0.70-1.30); EST Glomerular Filtration Rate 59 mL/min (>60); Est Glom Filt Rate - Afr Amer 71 mL/min (>60); Estimated Creatinine Clearance 44.31 ml/min; Glucose 190 mg/dL (74-106); Potassium 3.2 mmol/L (3.5-5.1); Sodium Level 135 mmol/L (136-145)
[2023-09-02 04:53] LABS: Magnesium 1.6 mg/dL (1.6-2.6); Phosphorus 2.5 mg/dL (2.5-4.9)
[2023-09-02] MEDS: Potassium Chloride Oral Tablet 20 MEQ 40 MEQ PO (05:54)
[2023-09-02] MEDS: 0.9% Saline Lock 10 ML Syringe IV (05:55)
[2023-09-02] MEDS: Magnesium Sulfate 2 GM in Dextrose 5%-Water (100mL Bag) 100 ML IV (05:55)
[2023-09-02 07:23] VITALS: O2SAT 96
[2023-09-02] MEDS: Insulin Lispro 100 UNIT/ML INSULN.PEN SC ×2 (08:07→13:00)
[2023-09-02] MEDS: Multivitamins,Therapeutic Tablet 1 TABLET PO (08:07)
[2023-09-02] MEDS: Glimepiride 4 MG Tablet PO (08:07)
[2023-09-02] MEDS: metFORMIN HCl 1,000 MG Tablet 1000 MG PO (08:07)
[2023-09-02] MEDS: Pioglitazone Hydrochloride 45 MG Tablet PO (08:08)
[2023-09-02] MEDS: Pantoprazole Sodium 20 MG Tablet PO (08:08)
[2023-09-02] MEDS: Heparin Injection (Vial) 5,000 UNIT/ML VIAL 5000 UNIT SC (08:08)
[2023-09-02] MEDS: Omega-3 Acid Ethyl Esters 1 GM Capsule PO (08:08)
[2023-09-02 08:18] LABS: Bedside Glucose 252 mg/dL (74-106)
--- NOTE | 2023-09-02 08:18 | PN.CC_ITS ---
Assessment & Plan Assessment/Plan (1) Streptococcal pneumonia: (2) DEEDEE (acute kidney injury): (3) Acute hypoxic respiratory failure: PLAN: Plan RECOMMENDATIONS: 1. Continue antimicrobials to complete treatment course. 2. Supplemental oxygen, if needed, to maintain saturations at or above 90%. 3. Encourage incentive spirometer use and mobilize patient as tolerated. 4. Perform walking oximetry study prior to consideration for discharge home. 5. We will sign off from a critical care perspective. Please call with any additional questions. IMPRESSIONS: 1. Sepsis secondary to pneumococcal pneumonia The patient appears to be improving clinically with appropriate antimicrobial therapy. The patient remains hemodynamically stable. 2. Acute hypoxic respiratory failure secondary to pneumococcal pneumonia Significantly improved from yesterday. Plan to continue supplemental oxygen, if needed, to maintain saturations at or above 90%. Continue antimicrobial therapy, as noted above. Encourage incentive spirometer use and mobilize patient as tolerated. 3. Acute kidney injury secondary to problems 1 and 2 Most likely prerenal in etiology. Creatinine has improved with volume expansion. Continue to monitor urine output. No current indication for renal replacement therapy. 4. Advanced age/diabetes/hypertension/BPH/GERD Complicates care, management, recovery and prognosis. Continue supportive measures as noted above. This note was generated with [employer] dictation software. It may contain incorrect words, spelling, and punctuation that were not noted in checking the note before signing. Subjective Subjective The patient was seen and examined at the bedside this morning. Events from the last 24 hours have been reviewed. The patient is currently afebrile, hemodynamically stable and maintaining appropriate oxygen saturations on 2 L/min via nasal cannula. No overnight issues were identified by the nursing staff. The patient is documented to be overall net -4 L for the hospitalization. Objective Data Objective Data The patient's most recent lab work, culture data and imaging studies have all been personally reviewed. Urine Streptococcus antigen was positive. Blood cultures dated August 30 are positive for Streptococcus pneumonia. Vital Signs: Vital Signs Temp Pulse Resp BP Pulse Ox O2 Del Method O2 Flow Rate 98.2 F 76 20 H 140/84 H 96 Nasal Cannula 2 09/02/23 02:30 09/02/23 02:30 09/02/23 02:30 09/02/23 02:30 09/02/23 02:30 09/02/23 02:43 09/02/23 02:43 Oxygen Flow Rate (L/min) 2 Oxygen Delivery Method Nasal Cannula Weight: 194 lb 14.218 oz Body Mass Index (BMI) 31.3 Intake & Output: Intake and Output for Last 24 Hours 08/31/23 09/01/23 09/02/23 23:59 23:59 23:59 Intake Total 1404.5 / 1404.5 1230 / 1230 Output Total 4350 / 4350 5425 / 5425 1750 / 1750 Balance -2945.5 / -2945.5 -4195 / -4195 -1750 / -1750 Lab / Micro Data Attestation: I reviewed the patient's lab results. 09/02/23 02:36 09/02/23 02:36 Labs: Laboratory Results - last 24 hr 09/01/23 08:01: POC Glucose 194 H 09/01/23 12:05: POC Glucose 315 H 09/01/23 16:16: POC Glucose 190 H 09/01/23 21:21: POC Glucose 281 H 09/02/23 02:30: Phosphorus 2.5, Magnesium 1.6 09/02/23 02:36: WBC 6.3, RBC 4.33 L, Hgb 11.8 L, Hct 35.8 L, MCV 82.7, MCH 27.3, MCHC 33.0, RDW Std Deviation 43.4, RDW Coeff of Lesvia 14.5, Plt Count 171, MPV 10.1, Immature Gran % (Auto) 1.300 H, Neut % (Auto) 72.4 H, Lymph % (Auto) 15.1 L, Spencer % (Auto) 7.3, Eos % (Auto) 3.7, Baso % (Auto) 0.2, Absolute Neuts (auto) 4.6, Absolute Lymphs (auto) 0.95, Nucleated RBC % 0, Sodium 135 L, Potassium 3.2 L, Chloride 99, Carbon Dioxide 27.0, Anion Gap 9, BUN 30 H, Creatinine 1.26, Estim Creat Clear Calc 44.31, Est GFR (MDRD) Af Amer 71, Est GFR (MDRD) Non-Af 59 L, BUN/Creatinine Ratio 23.8 H, Glucose 190 H, Calcium 8.4 L Micro: Microbiology 08/30/23 14:25 Urine, Clean Catch Urine Culture - Preliminary Culture exhibits no growth. 08/30/23 13:00 Blood Culture (Wb) - Anticubital Right Bacteria Detection (PCR) - Final Streptococcus pneumoniae 08/30/23 13:00 Blood Culture (Wb) - Anticubital Right Blood Culture - Final Streptococcus pneumoniae 08/30/23 13:47 Blood Culture (Wb) - Anticubital Left Blood Culture - Final Streptococcus pneumoniae 08/30/23 16:45 Mucosa - Nose Respiratory Panel (PCR) - Final 08/30/23 14:25 Urine, Clean Catch Legionella Antigen - Final 08/30/23 14:25 Urine, Clean Catch Streptococcus pneumoniae Antigen (M - Final Streptococcus pneumonia Ag 08/30/23 13:50 Nasal Secretion SARS-CoV-2 & FLU Antigen (Rapid) - Final Rhythm Strip Rhythm Strip: Sinus Tach Rate: 100 Ectopy: None Physical Exam Const alert and no apparent distress Constitutional Narrative: Sitting in bedside recliner. General Appearance: cooperative HEENT normocephalic, head/scalp atraumatic and moist oral mucous membranes Eyes PERRL, EOMs intact bilaterally and conjunctivae normal Neck supple General: trachea midline Chest inspection of chest normal Resp Auscultation: diminished lung sounds; Negative for rales, rhonchi or wheezes Cardio regular rate and regular rhythm GI normal to inspection, nondistended, normoactive bowel sounds Extremity no clubbing, cyanosis or edema Skin no rashes or lesions noted Neuro oriented x3, CN's II-XII intact bilaterally and moves all extremities Psych cooperative and affect normal Charges/Coding Visit Charges Inpatient E&M: 84292 Subs Hosp L2
[2023-09-02 08:30] VITALS: BP 140/77; PULSE 91; RESP 31; TEMP 36.5; O2SAT 91
[2023-09-02] MEDS: Ceftriaxone 2 GM in 0.9% Normal Saline (50mL MB+) 50 ML IV (10:41)
[2023-09-02 11:04] VITALS: O2SAT 87; O2SAT 91; O2SAT 94
[2023-09-02 11:57] LABS: Bedside Glucose 271 mg/dL (74-106)
--- NOTE | 2023-09-02 13:12 | CASEMGMT ---
Pt qualifies for Home O2. Referral sent to [facility] via [facility] at this time.
--- NOTE | 2023-09-02 13:40 | CASEMGMT ---
RN CM into pt room, pt sitting up in chair. Pt is aware that he qualifies for home oxygen. Discussed homegoing oxygen instructions, pt verbalized understanding. Pt has purchased a pox. Pt aware to monitor and notify PCP if lower than 90%. Pt states he is up walking around and denies need for any therapy at home. Pt ready for dc.
--- NOTE | 2023-09-02 13:46 | DCINST_ITS ---
Discharge Instructions Diet Discharge Diet: Low fat / Low cholesterol Activity Discharge Activity: Return to Normal Activity Weight Bearing Status: Weight bearing as tolerated Dressing / Incision Call your doctor if you observe: Fever of 101 or Higher, Shortness of breath, Dizziness, Swelling in the ankles, Chest pain and Increased palpitations (irregular heartbeat) Follow Up Care Test Results: Test results from this visit will be discussed in further detail at your follow- up appointment, if applicable. Discharge Plan Admission Admit Date/Time: 08/30/23 15:43 Primary Reason for Your Visit: pneumonia Attending Provider: Justine Valera Primary Care Provider: Anamaria Szymanski Consulting Providers: Harlan Hinojosa Instructions Patient Instructions: ED Pneumonia (Adult) Additional Instructions / Restrictions: use oxygen for shortness of breath as needed. Discharge Orders/Prescriptions Prescriptions: New amoxicillin-pot clavulanate 875-125 mg tablet 1 tab PO BID Qty: 10 0RF Continued atorvastatin 80 mg tablet 80 mg PO DAILY valsartan [Diovan] 160 mg tablet 160 mg PO DAILY omeprazole 20 mg capsule,delayed release(DR/EC) 20 mg PO DAILY metformin 1,000 mg tablet 1,000 mg PO BID glimepiride 4 mg tablet 4 mg PO DAILY multivitamin [Daily Value] Tablet 1 tab PO DAILY tamsulosin 0.4 mg capsule 0.4 mg PO DAILY liraglutide 0.6 mg/0.1 mL (18 mg/3 mL) pen injector 1.2 mg subcut DAILY Skyrizi 150 mg/mL syringe 150 mg subcut .COMPLEX Rx Instructions: 150 mg subcutaneously EVERY 3 MONTHS; omega-3 fatty acids [[place]-3] 1,000 mg capsule 1,000 mg PO DAILY pioglitazone 45 mg tablet 45 mg PO DAILY Referrals / Follow Up: Anamaria Szymanski, [employer] [Primary Care Provider] - Within 1 Week Disposition Disposition (needs filled in before D/C Order can be placed): Home, Self Care
--- NOTE | 2023-09-02 13:46 | DS.PCM_ITS ---
Providers Date of Admission: 08/30/23 Date of Discharge: 09/02/23 Primary Care Physician: DIANA Lopez Consultations 08/30/23 19:32 Consult: System Trainer / Pulmonary Medicine Routine Consulting Provider: Pulmonary Medicine ann-marie Chowdhury Reason for Consult: septic shock EMERGENT Consult: No MD Notified: Yes Date Notified: 08/30/23 Time Notified: 19:32 Method of Notification: Text Reason For Visit: SEPSIS HYPOXEMIA PNEUMONIA Diagnosis Discharge Diagnosis (1) Streptococcal pneumonia: Status: Acute Code(s): J15.4 - Pneumonia due to other streptococci (2) DEEDEE (acute kidney injury): Status: Acute Code(s): N17.9 - Acute kidney failure, unspecified (3) Acute hypoxic respiratory failure: Status: Acute Code(s): J96.01 - Acute respiratory failure with hypoxia Plan #Septic shock due to strep pneumonia * fever, tachypnea and hypotension have resolved. * Chest x-ray on admission showed right middle and lower lobe pneumonia and urine For strep antigen was positive. * Patient on IV ceftriaxone. Critical care on board. Sputum and blood cultures pending. * Patient did not require Levophed or any other pressor. * #Acute hypoxic resp failure due to strep pneumonia * Does not wear oxygen at home. now down to room air. * On IV ceftriaxone as above. Breathing treatments with bronchodilators. * #DEEDEE: resolving. Cr is trending downwards. It was 2.8 on admission and is down to 1.45. Was likely prerenal due to dehydration. #Hyponatremia: Resolving with fluids. Sodium was 128 on admission and is now 134. Will monitor. #Type 2 diabetes mellitus: ISS. Accuchecks ACHS. On metformin, liraglutide, glimepiride and pioglitazone # Hyperlipidemia: On statin #Hypertension: Valsartan on hold in light of DEEDEE. IV hydralazine as needed. Resume valsartan when DEEDEE resolves. #BPH: On Flomax #GERD: On PPI DVT prophylaxis: heparin Disposition: transfer out of ICU to PCU Medications at Discharge Home Medications atorvastatin 80 mg tablet 80 mg PO DAILY 08/30/23 glimepiride 4 mg tablet 4 mg PO DAILY 08/30/23 liraglutide 0.6 mg/0.1 mL (18 mg/3 mL) subcutaneous pen injector 1.2 mg subcut DAILY 08/30/23 metformin 1,000 mg tablet 1,000 mg PO BID 08/30/23 multivitamin (Daily Value tablet) 1 tab PO DAILY 08/30/23 omega-3 fatty acids 1,000 mg capsule (Super [place]-3) 1,000 mg PO DAILY 08/30/23 omeprazole 20 mg capsule,delayed release 20 mg PO DAILY 08/30/23 pioglitazone 45 mg tablet 45 mg PO DAILY 08/30/23 risankizumab-rzaa 150 mg/mL subcutaneous syringe (Skyrizi) 150 mg subcut .COMPLEX 08/30/23 tamsulosin 0.4 mg capsule 0.4 mg PO DAILY 08/30/23 valsartan 160 mg tablet (Diovan) 160 mg PO DAILY 08/30/23 amoxicillin 875 mg-potassium clavulanate 125 mg tablet 1 tab PO BID #10 tabs 09/02/23 Hospital Course Operations None Procedures None Summary of Care Provided Minutes Spent on Discharge: 55 Hospital Course: Patient is a 77-year-old male with a past medical history as outlined who was admitted to the ED on 08/30/2023 with a complaint of shortness of breath, cough and vomiting as well as diarrhea. Symptoms are started about 3 to 4 days prior to admission and could not eat or drink much. His concern was that he may have aspirated at a point with the vomiting. Review of symptoms otherwise negative. Chest x-ray showed evidence of right middle and lower lobe pneumonia and questionable infiltrate versus atelectasis of the left lower lobe. He was admitted and managed for hypoxia due to probable aspiration pneumonia. He was started on IV Zosyn. He was initially admitted to the ICU due to concerns about septic shock in light of hypotension, fever and tachycardia as well as hypotension and obvious source of infection being the pneumonia. He was hydrated with fluids per sepsis protocol. Urine for strep and Legionella was positive for strep antigens so antibiotics were narrowed down to IV ceftriaxone. Patient was also managed for acute respiratory failure as he required up to 12 L of oxygen. Critical care was consulted. Patient also had DEEDEE which resolved with IV fluid hydration. His shortness of breath gradually improved and he was weaned down on his oxygen. His shortness of breath improved and he had walking pulse ox on 08/25/2023 which showed that he required 1 L of oxygen. Patient is ambulatory in the community. He was discharged home on 09/02/2023 on p.o. Augmentin for 5-day course. He is follow-up with his primary care doctor Within 1 to 2 weeks and was discharged on 1 L of oxygen as per oxygen pulse ox requirements. Patient seen and examined prior to discharge. He felt well and had no c omplaints. He had an uneventful night. Review of systems otherwise negative. Labs and vitals reviewed. Home medications reviewed and reconciled. Physical Exam Const alert, oriented x3 and no apparent distress Constitutional Narrative: Pleasant elderly male, obese, sitting comfortably in bed, conversing normally, no acute distress. Fatigued appearing and moderately flushed in the face. General Appearance: cooperative, comfortable and well developed Exam Limitations: no limitations HEENT normocephalic, head/scalp atraumatic, hearing grossly normal bilaterally, nasal mucous membranes and turbinates normal and moist oral mucous membranes Mouth: oral and palatal mucosa normal Eyes PERRL, EOMs intact bilaterally and conjunctivae normal Neck full ROM, no lymphadenopathy and supple Lymph Lymphatic: no lymphadenopathy noted and no lymphedema noted Chest inspection of chest normal Resp Resp Narrative: mildly diminished breath sounds bibasally, no wheezes; few bilateral crackles. On room air Effort and Inspection: tachypneic, respiratory distress and labored Cardio regular rate, regular rhythm, S1 normal heart sound, S2 normal heart sound, no murmurs and peripheral pulses 2+ throughout GI normal to inspection, nondistended, normoactive bowel sounds, soft to palpation, non-tender and non-distended Back/Spine normal ROM Extremity normal to inspection, full ROM, normal capillary refill, no clubbing, cyanosis or edema, no calf tenderness and no pedal edema General Extremity: no tenderness to palpation of joints or extremities Skin no rashes or lesions noted General Skin Exam: no breakdown Neuro oriented x3, CN's II-XII intact bilaterally, moves all extremities, no focal motor deficits, no sensory deficits noted and deep tendon reflexes 2+ bilaterally Sensorium / Orientation: awake and alert Speech: speech normal Motor Exam: strength 5/5 throughout and general weakness Psych mental status grossly normal, thought process normal and cooperative Appearance: appropriate Weight / BMI Weight Weight: 194 lb 14.218 oz Body Mass Index (BMI) 31.3 ABG / Lab / Microbiology Data 09/02/23 02:36 09/02/23 02:36 Laboratory: Laboratory Results - last 24 hr 09/01/23 16:16: POC Glucose 190 H 09/01/23 21:21: POC Glucose 281 H 09/02/23 02:30: Phosphorus 2.5, Magnesium 1.6 09/02/23 02:36: WBC 6.3, RBC 4.33 L, Hgb 11.8 L, Hct 35.8 L, MCV 82.7, MCH 27.3, MCHC 33.0, RDW Std Deviation 43.4, RDW Coeff of Lesvia 14.5, Plt Count 171, MPV 10.1, Immature Gran % (Auto) 1.300 H, Neut % (Auto) 72.4 H, Lymph % (Auto) 15.1 L, [place] % (Auto) 7.3, Eos % (Auto) 3.7, Baso % (Auto) 0.2, Absolute Neuts (auto) 4.6, Absolute Lymphs (auto) 0.95, Nucleated RBC % 0, Sodium 135 L, Potassium 3.2 L, Chloride 99, Carbon Dioxide 27.0, Anion Gap 9, BUN 30 H, Creatinine 1.26, Estim Creat Clear Calc 44.31, Est GFR (MDRD) Af Amer 71, Est GFR (MDRD) Non-Af 59 L, BUN/Creatinine Ratio 23.8 H, Glucose 190 H, Calcium 8.4 L 09/02/23 07:59: POC Glucose 252 H 09/02/23 11:40: POC Glucose 271 H Microbiology: Microbiology 08/30/23 14:25 Urine, Clean Catch Urine Culture - Preliminary Culture exhibits no growth. 08/30/23 13:00 Blood Culture (Wb) - Anticubital Right Bacteria Detection (PCR) - Final Streptococcus pneumoniae 08/30/23 13:00 Blood Culture (Wb) - Anticubital Right Blood Culture - Final Streptococcus pneumoniae 08/30/23 13:47 Blood Culture (Wb) - Anticubital Left Blood Culture - Final Streptococcus pneumoniae 08/30/23 16:45 Mucosa - Nose Respiratory Panel (PCR) - Final 08/30/23 14:25 Urine, Clean Catch Legionella Antigen - Final 08/30/23 14:25 Urine, Clean Catch Streptococcus pneumoniae Antigen (M - Final Streptococcus pneumonia Ag 08/30/23 13:50 Nasal Secretion SARS-CoV-2 & FLU Antigen (Rapid) - Final D/C Instructions Discharge Diet: Low fat / Low cholesterol Discharge Activity: Return to Normal Activity Weight Bearing Status: Weight bearing as tolerated Call your doctor if you observe: Fever of 101 or Higher, Shortness of breath, Dizziness, Swelling in the ankles, Chest pain and Increased palpitations (irregular heartbeat) Meaningful Use Info Meaningful Use Diagnoses (Choose all that apply): None applicable Discharge Plan Admission Admit Date/Time: 08/30/23 15:43 Primary Reason for Your Visit: pneumonia Attending Provider: Justine Valera Primary Care Provider: Anamaria Szymanski Consulting Providers: Harlan Hinojosa Instructions Patient Instructions: ED Pneumonia (Adult) Additional Instructions / Restrictions: use oxygen for shortness of breath as needed. Discharge Orders/Prescriptions Prescriptions: New amoxicillin-pot clavulanate 875-125 mg tablet 1 tab PO BID Qty: 10 0RF Continued atorvastatin 80 mg tablet 80 mg PO DAILY valsartan [Diovan] 160 mg tablet 160 mg PO DAILY omeprazole 20 mg capsule,delayed release(DR/EC) 20 mg PO DAILY metformin 1,000 mg tablet 1,000 mg PO BID glimepiride 4 mg tablet 4 mg PO DAILY multivitamin [Daily Value] Tablet 1 tab PO DAILY tamsulosin 0.4 mg capsule 0.4 mg PO DAILY liraglutide 0.6 mg/0.1 mL (18 mg/3 mL) pen injector 1.2 mg subcut DAILY Skyrizi 150 mg/mL syringe 150 mg subcut .COMPLEX Rx Instructions: 150 mg subcutaneously EVERY 3 MONTHS; omega-3 fatty acids [Super [place]-3] 1,000 mg capsule 1,000 mg PO DAILY pioglitazone 45 mg tablet 45 mg PO DAILY Referrals / Follow Up: Anamaria Szymanski, STEFAN-C [Primary Care Provider] - Within 1 Week Disposition Disposition (needs filled in before D/C Order can be placed): Home, Self Care Charges/Coding Visit Charges Inpatient E&M: 10155 Disch Hosp >30min
[2023-09-02 15:14] VITALS: BP 130/72; PULSE 89; RESP 18; O2SAT 92
== END 2023-09-02 15:22 | disposition home or self-care (01) | DRG 871 ==
LOC: ED 14:28 → ICU 22:33 → PCU 08-31 16:07
PROVIDERS: Admitting Provider Hospitalist; Emergency Provider Emergency Medicine; PCP Nurse Practitioner Family; Visit Provider Student in an Organized Health Care Education/Training Program
DX: A40.3 Sepsis due to Streptococcus pneumoniae (principal); J96.01 Acute respiratory failure with hypoxia; J69.0 Pneumonitis due to inhalation of food and vomit; R65.21 Severe sepsis with septic shock; J13 Pneumonia due to Streptococcus pneumoniae; N17.9 Acute kidney failure, unspecified; E87.1 Hypo-osmolality and hyponatremia; E11.65 Type 2 diabetes mellitus with hyperglycemia; I10 Essential (primary) hypertension; K21.9 Gastro-esophageal reflux disease without esophagitis; E78.5 Hyperlipidemia, unspecified; E66.9 Obesity, unspecified; N40.1 Benign prostatic hyperplasia with lower urinary tract symptoms; R35.0 Frequency of micturition; Z68.31 Body mass index [BMI] 31.0-31.9, adult; Z79.84 Long term (current) use of oral hypoglycemic drugs; Z79.85 Long-term (current) use of injectable non-insulin antidiabetic drugs; Z79.899 Other long term (current) drug therapy
CPT/HCPCS: 36415; 71045; 72125; 72128; 72131; 76770; 80048; 80053; 81001; 82570; 82962; 83605; 83735; 83880; 84100; 84300; 84484; 85025; 85027; 85610; 85730; 87040; 87077; 87086; 87149; 87186; 87428; 87449; 87633; 93005; 94668; 94762; 97162; 97166; 99285; J7030; J7040; J7050; A4216; J0295; J0612; J1940; J2405

== ENCOUNTER 2023-10-01 15:38 | Emergency (ER) | payer MEDICARE, OTHER, SELFPAY ==
[2023-10-01 15:40] VITALS: BP 156/96; PULSE 96; RESP 14; TEMP 36.6; O2SAT 98; BMI 29.8
--- NOTE | 2023-10-01 15:44 | EX.ED.DYSGE1 ---
HPI History of Present Illness Chief Complaint: Lower Extremity Injury [facility] Medical History (Updated 10/01/23 @ 16:[address] Luis Coyle DO) DEEDEE (acute kidney injury) Aspiration pneumonia Diabetes Factor 5 Leiden mutation, heterozygous GERD (gastroesophageal reflux disease) Hypertension Hypoxemia Streptococcal pneumonia Home Medications atorvastatin 80 mg tablet 80 mg PO DAILY 08/30/23 [History Last Taken 08/30/23] glimepiride 4 mg tablet 4 mg PO DAILY 08/30/23 [History Last Taken 08/30/23] liraglutide 0.6 mg/0.1 mL (18 mg/3 mL) subcutaneous pen injector 1.2 mg subcut DAILY 08/30/23 [History Last Taken 08/30/23] metformin 1,000 mg tablet 1,000 mg PO BID 08/30/23 [History Last Taken 08/30/23] multivitamin (Daily Value tablet) 1 tab PO DAILY 08/30/23 [History Last Taken 08/30/23] omega-3 fatty acids 1,000 mg capsule (Super [place]-3) 1,000 mg PO DAILY 08/30/23 [History Last Taken 08/30/23] omeprazole 20 mg capsule,delayed release 20 mg PO DAILY 08/30/23 [History Last Taken 08/30/23] pioglitazone 45 mg tablet 45 mg PO DAILY 08/30/23 [History Last Taken 08/30/23] risankizumab-rzaa 150 mg/mL subcutaneous syringe (Skyrizi) 150 mg subcut .COMPLEX 08/30/23 [History Last Taken 06/17/23] tamsulosin 0.4 mg capsule 0.4 mg PO DAILY 08/30/23 [History Last Taken 08/29/23] valsartan 160 mg tablet (Diovan) 160 mg PO DAILY 08/30/23 [History Last Taken 08/30/23] rivaroxaban 15 mg (42)-20 mg (9) tablets in a starter pack (Xarelto DVT-PE Treatment 30-Day Starter) See Rx Instructions PO .COMPLEX #51 tabs 10/01/23 [Rx Last Taken Unknown] Allergy/AdvReac Type Severity Reaction Status Date / Time No Known Allergies Allergy Verified 10/01/23 15:39 Social History Smoking Status: Never smoker EXAM Physical Exam Const Vital Signs: 10/01/23 15:40 Temperature 98 F Temperature Source Temporal Pulse Rate 96 Respiratory Rate 14 Blood Pressure 156/96 H Blood Pressure Mean 116 Pulse Ox 98 [facility] Narrative Medical decision making narrative: HISTORY OF PRESENT ILLNESS: 77-year-old male here with leg pain. Notes right upper quad and right buttock pain. Started several days ago. States he started working and the pain got worse. Denies any back pain or falls. Denies any other inciting event. Notes his leg was more swollen yesterday after working. Patient denies active cancer, being bedridden for greater than 3 days, denies unilateral leg swelling, denies any varicose veins, denies any calf tenderness, denies tenderness along deep venous system. Denies major surgery within 12 weeks, recent paralysis, previous DVT. REVIEW OF SYSTEMS: Pertinent positives: Leg pain Pertinent negatives: Chest pain, shortness of breath PHYSICAL EXAM: Nursing triage notes reviewed, Vital signs reviewed Constitutional: please see mdm HENT: MMM Eyes: Pupils equal round and reactive to light, Extraocular muscles intact Neck: No stridor, no JVD, full neck ROM Lungs: Clear to auscultation, No wheezing or rales. No increased work of breathing, no conversational dyspnea, no accessory muscle use, no nasal flaring. No respiratory distress noted Heart: Regular rate and rhythm, No murmurs, No rubs and No gallops, 2+ distal pulses (radial, femoral, posterior tibial) in all extremities Abdomen: Soft, there is no tenderness, rigidity, rebound or guarding, no obvious peritoneal signs, no palpable pulsatile abdominal masses, no auscultated abdominal bruit : No CVAT Extremities: No edema, TTP over right proximal quadricep, TTP over right piriformis, positive straight leg raise test on the right Neuro: Intact sensation L1-S1 dermatomal distributions. Intact 5/5 strength in hip flexion (T12-L3). Knee extension (L2-L4). Ankle dorsiflexion (L4-L5). Ankle plantar flexion (S1). Great toe extension (L5). 2+ patellar and Achilles DTRs. Skin: No rash or lesions noted MEDICAL DECISION MAKING: Chief Complaint: Leg pain External records reviewed: Recent hospitalization August 2023 for pneumonia, acute kidney injury and acute respiratory failure with hypoxia Factors affecting care: Type 2 diabetes, hyperlipidemia, factor V Leiden MDM Narrative: Patient was hemodynamically stable, afebrile, nontoxic-appearing. Exam without swelling, no calf tenderness. Intact range of motion without pain in all joints of the right leg. Intact pulses. Right lower extremity neurovascularly intact. No clinical exam findings suggest septic arthritis, compartment syndrome, fracture dislocation, cellulitis or abscess. Given the patient history of factor V Leiden and report of leg swelling I did obtain a DVT ultrasound Along with piriformis syndrome I considered the following differential diagnosis: Cellulitis, abscess, DVT, fracture location, septic arthritis, compartment syndrome I obtained a duplex ultrasound to rule out DVT. ALL IMAGES (IF OBTAINED) HAVE BEEN PERSONALLY REVIEWED AND INTERPRETED BY MYSELF. Bedside duplex ultrasound shows a gastrocnemius DVT. The synthesis of the patient's history, physical exam, labs images are consistent with DVT. Will start on Xarelto. Bleeding instructions were discussed. Patient reported no evidence of bleeding diathesis in the past. Patient was given strict return precaution and follow-up instructions. The patient and/or family, caregivers express understanding. The patient and/or family, caregivers agrees with the plan. Shared decision making: I will have a discussion with the patient and or visitors regarding risk/benefits of further testing or admission. They will be made aware of of the risk/benefits inherent in this decision they will be given the opportunity to voice understanding. Total critical care time today provided was at least 0 minutes. This excludes separately billable procedures. Critical care time (if documented) is secondary to the patient having high probability of clinically significant/life threatening deterioration in the patient's condition which required my urgent intervention. Impression: Right leg pain Dispo: Discharge home This note was generated with [employer] dictation software. It may contain incorrect words, spelling, and punctuation that were not noted in review of the chart prior to signing. Radiography Diagnostic Testing: Clinical Impression(s) from Imaging Studies Venous Doppler Study 10/01/23 16:02 Interpretation Summary Acute deep venous thrombosis right posterior tibial and gastrocnemius veins Patent and compressible right great saphenous vein Normal flow patterns left common femoral vein Ordering Physician: Luis Coyle Referring Physician: Anamaria Szymanski Performed By: Steven Hannon RVT Discharge Plan Triage Chief Complaint: Lower Extremity Injury ED Provider: Luis Coyle Dx/Rx/DC Orders Clinical Impression: DVT (deep venous thrombosis) Instructions: Rivaroxaban Oral Tablet, DVT Dc Prescriptions: New Xarelto DVT-PE Treat 30d Start 15 mg (42)- 20 mg (9) tablets,dose pack See Rx Instructions .ROUTE .COMPLEX Qty: 51 0RF Rx Instructions: take one-15 mg tablet twice daily for 21 days, then one-20 mg tablet once daily; must take with meal/food No Action atorvastatin 80 mg tablet 80 mg PO DAILY valsartan [Diovan] 160 mg tablet 160 mg PO DAILY omeprazole 20 mg capsule,delayed release(DR/EC) 20 mg PO DAILY metformin 1,000 mg tablet 1,000 mg PO BID glimepiride 4 mg tablet 4 mg PO DAILY multivitamin [Daily Value] Tablet 1 tab PO DAILY tamsulosin 0.4 mg capsule 0.4 mg PO DAILY liraglutide 0.6 mg/0.1 mL (18 mg/3 mL) pen injector 1.2 mg subcut DAILY Skyrizi 150 mg/mL syringe 150 mg subcut .COMPLEX Rx Instructions: 150 mg subcutaneously EVERY 3 MONTHS; omega-3 fatty acids [Super [place]-3] 1,000 mg capsule 1,000 mg PO DAILY pioglitazone 45 mg tablet 45 mg PO DAILY Primary Care Provider: Anamaria Szymanski Referrals: Anamaria Szymanski, [employer] INSTRUCTOR-C [Primary Care Provider] - Activity Restrictions/Additional Instructions: Thank you for trusting us with your care today! Given diagnosed with a DVT (blood clot) Please return if develop any chest pain or shortness of breath. Given prescribe Xarelto which is a blood thinning medication (anticoagulant). This medicine has risk of increased bleeding. If you develop any head trauma, nose bleeding, bruising, black, bloody stools, vomiting blood, coughing blood or blood in your urine please return to the emergency department immediately. Please take Tylenol (2 pills, 650 mg), every 6 hours as needed for pain and fever control. Please return to the emergency department if your symptoms change or worsen. Please follow with your primary care physician for further outpatient evaluation and management. Disposition Disposition: Home, Self Care
--- NOTE | 2023-10-01 16:02 | VDLE_ITS ---
Reason For Study: RLE Swelling RIGHT LEFT GSV is normal. CFV is compressible, spontaneous, phasic, CFV is compressible, spontaneous, phasic, competent, and demonstrates normal competent and demonstrates normal augmentation. augmentation. FV is compressible, spontaneous, phasic, competent and demonstrates normal augmentation. POP V is compressible, spontaneous, and phasic. T/P Trunk is compressible. Acute deep vein thrombosis is noted in the Gastrocnemius V. It is dilated and NONCOMPRESSIBLE. Acute deep vein thrombosis is noted in the PTV. It is dilated and NONCOMPRESSIBLE. RT PerV is compressible. Procedure This is a venous duplex using B-mode, color flow and spectral Doppler. Exam performed in department. The exam was diagnostic. A preliminary report was called and/or faxed to Dr. Coyle.
[2023-10-01] MEDS: Oxycodone/Apap 5/325 Tablet PO (16:45)
[2023-10-01] MEDS: Ibuprofen 200 MG Tablet 400 MG PO (16:46)
--- OUTSIDE RECORDS SUMMARY | 2023-10-01 16:46 | XMS RPT_ITS | CCD ---
Author Name Unknown Address [address] [facility] [facility], [place] [address] [place] [address] Organization [facility] Care Team Providers Care Green Prize Packer Name Role Phone Bernardo Toro MD Primary Care Provider Adriano Figueroa Unavailable BERNARDO TORO Primary Care Unavailable MINDY KATZ Attending Unavailable Bernardo Toro MD Primary Care Provider Adriano Figueroa OD Unavailable [phone] BERNARDO TORO Primary Care Unavailable RADHA SZYMANSKI Attending Unavailable RADHA SZYMANSKI Referring Unavailable BERNARDO TORO Primary Care Unavailable BERNARDO TORO Primary Care Unavailable RADHA SZYMANSKI Attending Unavailable RADHA SZYMANSKI Referring Unavailable BERNARDO TORO Primary Care Unavailable BERNARDO TORO Primary Care Unavailable RADHA SZYMANSKI Referring Unavailable RADHA SZYMANSKI Attending Unavailable BERNARDO TORO Primary Care Unavailable RADHA SZYMANSKI Attending Unavailable BERNARDO TORO Primary Care Unavailable BERNARDO TORO Primary Care Unavailable RADHA SZYMANSKI Referring Unavailable BERNARDO TORO Primary Care Unavailable JOE SALOMON Attending Unavailable JOE SALOMON Referring Unavailable JOE SALOMON Referring Unavailable BERNARDO TORO Primary Care Unavailable RADHA SZYMANSKI Attending Unavailable BERNARDO TORO Primary Care Unavailable RADHA SZYMANSKI Referring Unavailable BERNARDO TORO Primary Care Unavailable Medications Current Medications Medication Drug Class(es) [...] hyperplasia with lower urinary tract symptoms] Onset: 09-10-2023 Chronic Nausea and vomiting (1 source) Nausea with vomiting, unspecified; Translations: [Nausea and vomiting, unspecified vomiting type] Onset: 09-10-2023 Episodic Open wounds of extremities (1 source) Disorder of ankle; Translations: [Unspecified open wound, left ankle, initial encounter] Episodic Other aftercare (1 source) Encounter for follow-up examination after completed treatment for conditions other than malignant neoplasm; Translations: [Hospital discharge follow-up] Onset: 09-10-2023 Episodic Other aftercare (1 source) Other mcc (current) drug therapy; Translations: [On angiotensin receptor blockers (ARB)] Onset: 08-02-2023 Episodic Other connective tissue disease (1 source) Other specified soft tissue disorders; Translations: [Swelling of lower leg] Onset: 09-10-2023 Episodic Other diseases of kidney and ureters (1 source) Disorder of kidney and ureter, unspecified; Translations: [Function kidney decreased] Onset: 09-10-2023 Episodic Other diseases of kidney and ureters (1 source) Other obstructive and reflux uropathy; 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] Onset: 09-10-2023 Episodic Other inflammatory condition of skin (20 [...] unspecified; Translations: [Bacterial sinusitis] Onset: 07-03-2023 Chronic Pneumonia (except that caused by tuberculosis or sexually transmitted disease) (1 source) Unspecified bacterial pneumonia; Translations: [Bacterial pneumonia] Onset: 09-10-2023 Episodic Septicemia (except in labor) (1 source) Sepsis, unspecified organism; Translations: [Septic shock (HCC)] Onset: 09-10-2023 Episodic Shock (1 source) Severe sepsis with septic shock; Translations: [Septic shock (HCC)] Onset: 09-10-2023 Episodic Past or Other Problems Problem Classification Problem Date Documented Da te Episodic/Chronic Allergic reactions (20 sources) Inflammatory dermatosis; Translations: [Dermatitis, unspecified] Onset: 08-19-2011 Episodic Diseases of mouth; excluding dental (2 sources) Aphthous ulcer of mouth; Translations: [Recurrent oral aphthae] Onset: 02-12-2023 Episodic Mycoses (20 sources) Candidal balanitis; Translations: [Candidal balanitis] Onset: 02-05-2020 02-05-2020 Episodic Other male genital disorders (20 sources) Disorder of male genital organ; Translations: [Hydrocele, unspecified] Onset: 08-22-2009 08-19-2011 Episodic Other conditions (20 sources) Congenital hydrocele; Translations: [Congenital hydrocele] Onset: 08-07-2006 08-19-2011 Episodic Results Test Name Value Interpretation Reference Range Facil ity Vital Signs Date Time Vital Sign Value Performing Clinician Edi peralta 05-12-2023 07:10-0400 Body weight 83.01 kg Radha Szymanski APRN.SHARON Work Phone: [facility] 05-12-2023 07:10-0400 Diastolic blood pressure 80 mm[Hg] Radha Szymanski APRN.TIER IN Work Phone: [facility] 05-12-2023 07:10-0400 Heart rate 88 /min Radha Szymanski WEDDING DESIGNER.TIER IN Work Phone: [facility] 05-12-2023 07:10-0400 Respiratory rate 16 /min Radha Szymanski WEDDING DESIGNER.TIER IN Work Phone: [facility] 05-12-2023 07:10-0400 SaO2% (BldA) [Mass fraction] 95 % Radha Szymanski WEDDING DESIGNER.TIER IN Work Phone: [facility] 05-12-2023 07:10-0400 Systolic blood pressure 140 mm[Hg] Radha Szymanski WEDDING DESIGNER.TIER IN Work Phone: [facility] 11-11-2022 07:27-0500 Body weight 82.1 kg Radha Tannhof [employer]EDDING DESIGNER.TIER IN Work Phone: [facility] 11-11-2022 07:27-0500 Diastolic blood pressure 70 mm[Hg] Radha Tannhof WEDDING DESIGNER.TIER IN Work Phone: [facility] 11-11-2022 07:27-0500 Heart rate 83 /min Radha Tannhof WEDDING DESIGNER.TIER IN Work Phone: [facility] 11-11-2022 07:27-0500 Respiratory rate 16 /min Radha Tannhof WEDDING DESIGNER.TIER IN Work Phone: [facility] 11-11-2022 07:27-0500 SaO2% (BldA) [Mass fraction] 97 % Radha Tannhof WEDDING DESIGNER.TIER IN Work Phone: [facility] 11-11-2022 07:27-0500 Systolic blood pressure 120 mm[Hg] Radha Tannhof WEDDING DESIGNER.TIER IN Work Phone: [facility] 08-12-2022 07:54-0500 Body weight 80.29 kg Radha Tannhof WEDDING DESIGNER.TIER IN Work Phone: [facility] 08-12-2022 07:54-0500 Diastolic blood pressure 84 mm[Hg] Radha Tannhof WEDDING DESIGNER.TIER IN Work Phone: [facility] 08-12-2022 07:54-0500 Heart rate 87 /min Radha Tannhof WEDDING DESIGNER.TIER IN Work Phone: [facility] 08-12-2022 07:54-0500 Respiratory rate 16 /min Radha Tannhof WEDDING DESIGNER.TIER IN Work Phone: [facility] 08-12-2022 07:54-0500 SaO2% (BldA) [Mass fraction] 98 % Radha Tannhof WEDDING DESIGNER.TIER IN Work Phone: [facility] 08-12-2022 07:54-0500 Systolic blood pressure 120 mm[Hg] Radha Tannhof WEDDING DESIGNER.TIER IN Work Phone: [facility] 06-27-2022 11:30-0400 Body temperature 97.9 [degF] Louann Hunter PA-C Work Phone: [facility] 06-27-2022 11:30-0400 Body weight 85.55 kg Louann Hunter PA-C Work Phone: [facility] 06-27-2022 11:30-0400 Diastolic blood pressure 76 mm[Hg] Louann Hunter PA-C Work Phone: [facility] 06-27-2022 11:30-0400 Heart rate 70 /min Louann Hunter PA-C Work Phone: [facility] 06-27-2022 11:30-0400 Respiratory rate 18 /min Louann Hunter PA-C Work Phone: [facility] 06-27-2022 11:30-0400 SaO2% (BldA) [Mass fraction] 97 % Louann Hunter PA-C Work Phone: [facility] 06-27-2022 11:30-0400 Systolic blood pressure 135 mm[Hg] Louann Hunter PA-C Work Phone: [facility] 06-02-2022 18:53-0400 Body temperature 97.81 [degF] Mindy Katz DO Work Phone: [facility] 06-02-2022 18:53-0400 Body weight 78.47 kg Mindy Katz DO Work Phone: [facility] 06-02-2022 18:53-0400 Diastolic blood pressure 67 mm[Hg] Mindy Katz DO Work Phone: [facility] 06-02-2022 18:53-0400 Heart rate 87 /min Mindy Katz DO Work Phone: [facility] 06-02-2022 18:53-0400 Respiratory rate 18 /min Mindy Katz DO Work Phone: [facility] 06-02-2022 18:53-0400 SaO2% (BldA) [Mass fraction] 97 % Mindy Katz DO Work Phone: [facility] 06-02-2022 18:53-0400 Systolic blood pressure 127 mm[Hg] Mindy Katz DO Work Phone: [facility] 05-13-2022 08:00-0400 Body weight 79.83 kg Radha Tannhof WEDDING DESIGNER.TIER IN Work Phone: [facility] 05-13-2022 08:00-0400 Diastolic blood pressure 78 mm[Hg] Radha Tannhof WEDDING DESIGNER.TIER IN Work Phone: [facility] 05-13-2022 08:00-0400 Heart rate 88 /min Radha Tannhof WEDDING DESIGNER.TIER IN Work Phone: [facility] 05-13-2022 08:00-0400 Respiratory rate 16 /min Radha Tannhof WEDDING DESIGNER.TIER IN Work Phone: [facility] 05-13-2022 08:00-0400 SaO2% (BldA) [Mass fraction] 98 % Radha Tannhof WEDDING DESIGNER.TIER IN Work Phone: [facility] 05-13-2022 08:00-0400 Systolic blood pressure 110 mm[Hg] Radha Tannhof WEDDING DESIGNER.TIER IN Work Phone: [facility] 02-10-2022 08:08-0400 Body weight 82.28 kg Bernardo Toro MD Work Phone: [facility] 02-10-2022 08:08-0400 Diastolic blood pressure 82 mm[Hg] Bernardo Toro MD Work Phone: [facility] 02-10-2022 08:08-0400 Heart rate 72 /min Bernardo Toro MD Work Phone: [facility] 02-10-2022 08:08-0400 Respiratory rate 16 /min Bernardo Toro MD Work Phone: [facility] 02-10-2022 08:08-0400 Systolic blood pressure 138 mm[Hg] Bernardo Toro MD Work Phone: [facility] Encounters Encounter Date Encounter Type Care Provider Facility Start: 09-10-2023 End: 09-11-2023 ambulatory BERNARDO FLORESPATRENALDO Facility:[facility] Start: 09-10-2023 End: 09-11-2023 ambulatory [facility] Facility:[facility] Start: 08-23-2023 End: 08-23-2023 ambulatory [facility] Facility:[facility] Start: 08-02-2023 End: 08-03-2023 [facility] Start: 07-03-2023 End: 07-03-2023 ambulatory BERNARDO Jonah CORTEZ Facility:[id number] Start: 06-24-2023 End: 06-24-2023 ambulatory BERNARDO Jonah SHAYRENALDO Facility:[facility] Start: 06-24-2023 End: 06-24-2023 Patient encounter procedure [...] VISIT ANNUAL PCP TEAM CHRONIC DISEASE VISIT [facility] Start: 05-07-2024 Hepatitis B surface antibody level LDL CHOLESTEROL [facility] Start: 02-13-2024 ANNUAL PCP TEAM CHRONIC DISEASE VISIT ANNUAL PCP TEAM CHRONIC DISEASE VISIT [facility] Start: 02-13-2024 BP CONTROLLED (<130/80) BP CONTROLLED (<130/80) [facility] Start: 11-12-2023 ANNUAL PCP TEAM CHRONIC DISEASE VISIT ANNUAL PCP TEAM CHRONIC DISEASE VISIT [facility] Start: 11-12-2023 BP CONTROLLED (<130/80) BP CONTROLLED (<130/80) [facility] Start: 11-05-2023 Hemoglobin A1c/Hemoglobin.total in Blood HBA1C [facility] Start: 08-12-2023 ANNUAL PCP TEAM CHRONIC DISEASE VISIT ANNUAL PCP TEAM CHRONIC DISEASE VISIT [facility] Start: 08-11-2023 End: 10-11-2023 Comprehensive metabolic 2000 panel - Serum or Plasma COMP METABOLIC PANEL Lab Routine Controlled type 2 diabetes mellitus without complication, without long-term current use of insulin (HCC) Expected: 08/11/2023, Expires: 10/11/2023 [facility] Work Phone: Immunizations Immunization Date Immunization Notes Care Provider Fa cili 06-28-2022 influenza virus vacc ine, unspecified formulation Joe Salomon MD Work Phone: [facility] 05-08-2021 influenza, high-dose , quadrivalent vaccine (FLUZONE HIGH DOSE QUADRIVALENT) Bernardo Toro MD Work Phone: [facility] 10-23-2020 COVID-19 vaccine, ag e 12+ yr (PFIZER-BIONTECH - PURPLE TOP) Bernardo Toro MD Work Phone: [facility] 09-04-2020 zoster vaccine recombinant Bernardo Toro MD Work Phone: [facility] 06-08-2020 influenza, high dose seasonal, preservative-free Bernardo Toro MD Work Phone: [facility] 06-08-2020 zoster vaccine recombinant Bernardo Toro MD Work Phone: [facility] 07-18-2019 influenza, high dose seasonal, preservative-free Bernardo Toro MD Work Phone: [facility] 06-10-2018 influenza, high dose seasonal, preservative-free Bernardo Toro MD Work Phone: [facility] 08-14-2015 pneumococcal conjuga te vaccine, 13 valent Bernardo Toro MD Work Phone: [facility] 07-19-2014 pneumococcal polysaccharide vaccine, 23 valent Bernardo Toro MD Work Phone: [facility] 06-28-2014 influenza, high dose seasonal, preservative-free Bernardo Toro MD Work Phone: [facility] 06-11-2013 influenza virus vacc ine, unspecified formulation Bernardo Toro MD Work Phone: [facility] 05-07-2011 influenza virus vacc ine, unspecified formulation Bernardo Toro MD Work Phone: [facility] Work Phone: 08-06-2009 pneumococcal polysaccharide vaccine, 23 valent Bernardo Toro MD Work Phone: [facility] 07-20-2008 influenza virus vacc ine, unspecified formulation Bernardo Toro MD Work Phone: [facility] 02-26-2004 tetanus toxoid, redu tootie diphtheria toxoid, and acellular pertussis vaccine, adsorbed Bernardo Toro MD Work Phone: [facility] Payers Date Payer Category Payer Medicare [id number] 2019 Unknown MMO MMO MEDICARE SUPPLEMENT [id number] 2019-Present [phone] [address] [place] [address] Indemnity [id number] 2019 Unknown MMO MMO MEDICARE SUPPLEMENT [id number] 2019-Present [phone] [address] [place] [address] Indemnity [id number] 2017 Medicare MEDICARE MEDICAR E A AND B [id number] 2017-Present [phone] [address] [address] [place] [address] Medicare [id number] 2017 Medicare MEDICARE MEDICAR E A AND B [id number] 2017-Present [phone] [address] [address] [place] [address] Medicare [id number] 2017 Medicare [id number] Social History Date Type Detail Facility Tobacco smoking status NHIS Never smoked tobacco [facility] Start: 02-10-2022 End: 02-12-2023 Alcohol intake Current non-drinker of alcohol (finding) [facility] Start: 02-09-2022 End: 08-11-2022 History SDOH Alcohol Frequency 1 [facility] Start: 02-09-2022 History SDOH Alcohol Std Drinks 98 [facility] Start: 02-09-2022 End: 08-11-2022 History SDOH Social Connections Phone 3 [facility] Start: 02-09-2022 End: 08-11-2022 History SDOH Social Connections Get Together 2 [facility] Start: 02-09-2022 History SDOH Physica l Activity DPW 4 [facility] Start: 02-04-2020 Education 12 [facility] Start: 1945 Sex Assigned At Male [facility] Start: 01-31-2022 End: 06-27-2022 Exposure to SARS-CoV-2 (event) Not sure [facility] Start: 08-11-2022 History SDOH Alcohol Std Drinks 0 [facility] Start: 08-11-2022 History SDOH Social Connections Phone 5 [facility] Start: 08-11-2022 End: 02-12-2023 History of Social function [facility] Start: 08-11-2022 End: 02-12-2023 Social connection and isolation panel [facility] Do you belong to any clubs or organizations such as temple groups, unions, fraternal or athletic groups, or school groups? Yes [facility] Are you now , , , , never or living with a partner? [facility] How often to you hav e a drink containing alcohol? Never [facility] How many standard dr inks containing alcohol do you have on a typical day? Patient does not drink [facility] How hard is it for y ou to pay for the very basics like food, housing, medical care, and heating Somewhat hard [facility] Do you feel stress - tense, restless, nervous, or anxious, or unable to sleep at night because your mind is troubled all the time - these days [OSQ] Not at all [facility] (I/We) worried wheth er (my/our) food would run out before (I/we) got money to buy more. Sometimes true [facility] In the past 12 month s, was there a time when you were not able to pay the mortgage or rent on time? No [facility] Start: 08-18-2019 Gender identity Identifies as male gender (finding) [facility] Medical Equipment Procedure Code Equipment Code Equipment Origin al Text Equipment Identifier Dates Start: 02-02-2017 End: 06-23-2023 Clinical Notes 11-11-2011 to 09-10-2023 Joe Salomon MD - 06/24/2023 8:09 AM Gosia Davidson RT(R) - 06/24/2023 8:00 AM EDTPatient InstructionsRadha Szymanski APRN.CNP - 05/12/2023 7:15 AM EDTPatient Instructions Note Date & Type Note Facility 09-10-2023 Note HNO ID: [id number] Author: RADHA SZYMANSKI APRN.SHARON Service: ? Author Type: Nurse Practitioner Type: Progress Notes Filed: 09/10/2023 09:33 Note Text: This is a 77 year old male who presents today with: Patient presents with: Follow Up: hospital follow up HISTORY OF PRESENT ILLNESS: Sean Hollis is a 77 year old male. Patient presents with: Follow Up: hospital follow up HOSPITAL/ER FOLLOW UP: Reason for visit: SOB, cough, N/V Which facility: [facility] Date of visit: 08/30/2023 Diagnosis: Streptococcal pneumonia, septic shock, acute hypoxic respiratory failure, DEEDEE Testing done: White blood cell elevated 12.0, lactic acid 4.8, chest x-ray showed right middle and lower lobe pneumonia. Strep pneumonia urine antigen positive. CT lumbar spine without contrast showed no evidence of spinal abscess. Ultrasound kidney and bladder was normal. Treatment given: IV saline, ceftriaxone. Zosyn. Discharged home on Augmentin for 5 days. Discharged home with 1 L of oxygen per pulse ox requirements. Current symptoms: Finished antibiotic a couple of days ago. Using 1 L O2 NC at bedtime. Refers he is slowly improving.. Still coughing but much improved, clear mucus. No SOB or difficulty breathing. Trying to get up throughout the day to walk around in the house. Lower Leg Swelling: Refers that since discharge from the hospital he has noticed increased swelling in his lower legs. Has been trying to keep his feet elevated in recliner. No SOB or chest pain. DM2: Sugars have been high, 200's, seems to be improving since discharge. Has not had much of an appetite. No changes with his diabetic medications. Needs refills on all mediations, refers that insurance is requiring him to change pharmacy. PAST MEDICAL HISTORY: PAST MEDICAL HISTORY [...] sugar(s) 1 daily. Dx: E11.9. Insulin: No Peterson-3 Fatty Acids-Vitamin E 1,000 mg cap Take [...] goiter, pain and significant neck swelling RESPIRATORY: + Cough CARDIOVASCULAR: Negative for chest pain, orthopnea, or palpitations +Lower Leg Swelling GI: No nausea, vomiting, or diarrhea/constipation. No hematochezia/melena. No heartburn or reflux symptoms. : No history of dysuria, frequency or incontinence MUSCULOSKELETAL: Negative for joint pain or swelling. SKIN: Negative for lesions, rash, and itching END (more content not included)... [facility] 08-23-2023 Note HNO ID: [id number] Author: Radha Szymanski APRN.TIER IN Service: ? Author Type: Nurse Practitioner Type: [...] sugar(s) 1 daily. Dx: E11.9. Insulin: No Peterson-3 Fatty Acids-Vitamin E 1,000 mg cap Take [...] Resp 16 Wt (more content not included)... [facility] 07-03-2023 Note HNO ID: [id number] Author: Mindy Katz, DO Service: ? Author [...] Dx: E11.9. Insulin: No 100 Each 3 Peterson-3 Fatty Acids-Vitamin E 1,000 mg cap Take [...] - DEXAMETHASONE 4 MG TABLET Mindy Mckenzie [facility] 06-24-2023 Note HNO ID: [id number] Author: Joe Salomon MD Service: ? Author Type: Physician Type: Progress Notes Filed: 06/24/2023 8:43 AM Note Text: Joe Salomon MD Department of Orthopaedics Orthopaedics [address] [facility] [address] Dept: [phone] Dept June 24, 2023 CHIEF COMPLAINT: Pain [...] however since he is coming up from [facility], he is interested in doing both today [...] subacromial bursas Informed Consent Consent Obtained: Verbal [place] Protocol A moment to CARE was completed. [...] sugar(s) 1 daily. Dx: E11.9. Insulin: No Peterson-3 Fatty Acid (more content not included)... [facility] 06-24-2023 Note HNO ID: [id number] Author: Gosia Cummins RT(R) Service: ? Author [...] RT Jaylon(R) June 24, 2023 8:36 AM [facility] 06-24-2023 History of Presen t illness Narrative Associated Order(s): Large Joint Arthro/Inj: bilateral subacromial bursas Post-Procedure Diagnose(s): Left shoulder pain, unspecified chronicity; Chronic pain of both shoulders; Shoulder impingement Joe Salomon MD Department of Orthopaedics Orthopaedics [address] [facility] [address] Dept: [phone] Dept June 24, 2023 CHIEF COMPLAINT: Pain [...] however since he is coming up from [facility], he is interested in doing both today [...] subacromial bursas Informed Consent Consent Obtained: Verbal [place] Protocol A moment to CARE was completed. [...] sugar(s) 1 daily. Dx: E11.9. Insulin: No Peterson-3 Fatty Acids-Vitamin E 1,000 mg cap Take [...] Joe Salomon MD documented in this encounter [facility] 06-24-2023 History of Presen t illness [...] 2023 8:36 AM documented in this encounter [facility] 05-12-2023 Note HNO ID: [id number] Author: Radha Szymanski APRN.TIER IN Service: ? Author Type: Nurse Practitioner Type: [...] sugar(s) 1 daily. Dx: E11.9. Insulin: No Peterson-3 Fatty Acids-Vitamin E 1,000 mg cap Take [...] distress, well-hydrated, well (more content not included)... [facility] 05-12-2023 Instructions Radha Szymanski APRN.[facility] - 05/12/2023 7:36 AM EDT Increase Victoza [...] the future. Office will reach out to [facility] to discuss medication costs. documented in this encounter [facility] 05-12-2023 History of Presen t illness [...] sugar(s) 1 daily. Dx: E11.9. Insulin: No Peterson-3 Fatty Acids-Vitamin E 1,000 mg cap Take [...] complication, without long-term current use of insulin ([facility]) - ICD9: 250.00, ICD10: E11.9 (primary diagnosis) [...] to office visit. - Office will contact [facility] pharmacy about GLP costs. - COMP [...] effects were discussed and patient voices understanding. Radah Szymanski APRN.SHARON This note was partially generated using [employer] voice recognition system. Note was reviewed for accuracy. There may be minor misspellings or grammar miscues with [employer] voice recognition. documented in this encounter [facility] 05-07-2023 Miscellaneous Notes The following approved medication requests have been transmitted electronically. Requested Prescriptions Signed Prescriptions Disp Refills dapagliflozin propanediol (FARXIGA) 10 mg tablet 30 tablet 5 Sig: Take 1 tablet by mouth daily with breakfast. Radha Szymanski APRN.CNP See pt message and advise. Pended Rx as requested. Prema Lopez Ma documented in this encounter [facility] 04-30-2023 Miscellaneous Notes The following approved medication requests have been transmitted electronically. Requested Prescriptions Signed Prescriptions Disp Refills liraglutide (VICTOZA) 0.6 mg/ 0.1 ml subcutaneous pen injector 3 Each 3 Sig: Inject 0.6 mg daily via pen Radha Szymanski APRN.SHARON documented in this encounter [facility] 04-19-2023 Miscellaneous Notes The following approved medication requests have been transmitted electronically. Requested Prescriptions Pending Prescriptions Disp Refills liraglutide (VICTOZA 2-OWEN) 0.6 mg/0.1 mL (18 mg/3 mL) 18 mL 1 Sig: Inject 1.2 mg subcutaneously once daily. Will Ward APRN.TIER IN Patient phones requesting refills as follows: Requested Prescriptions Pending Prescriptions Disp Refills liraglutide (VICTOZA 2-OWEN) 0.6 mg/0.1 mL (18 mg/3 mL) 18 mL 1 Sig: Inject 1.2 mg subcutaneously once daily. TERI-02/12/23 Labs-02/03/23 NOV-05/12/23 Please review and advise. Abbie Sanches LPN documented in this encounter [facility] 03-05-2023 Miscellaneous Notes Patient spouse notified [...] Requested Prescriptions Signed Prescriptions Disp Refills Insulin Randall, Disposable, (NOVOFINE 32) 32 gauge x 09/09 30 Each 11 Si Each once daily. Authorizing Provider: RADHA SZYMANSKI APRN.CNP Pt calls states was given script for victoza but has no needles for this and is unsure how much the provider wants him to start with. Asking needles be sent to [facility] in [place]. It appears the sig tells him how much to take but he states was told has to start and dose up. documented in this encounter [facility] 03-03-2023 Miscellaneous Notes Form signed and re-faxed. Thank you. Radha Szymanski APRN.SHARON Medicare part B detailed written order received via fax for one touch ultra test strips. Order partially completed and on Radha's desk for review, compeletion, and signature. Once completed, please fax to [phone]. Josephine Pina MA documented in this encounter [facility] 02-24-2023 Miscellaneous Notes See Prenovat Message. Maribell Velasco RN Victoza would be [...] Maribell Velasco RN documented in this encounter [facility] 02-24-2023 Miscellaneous Notes The following approved [...] 1.2 mg subcutaneously once daily. Radha Szymanski APRN.CNP documented in this encounter [facility] 02-12-2023 Note HNO ID: [id number] Author: Radha Szymanski APRN.CNP Service: ? Author [...] to 8.9. Staying active at work. Breakfast: [employer] chex cereal or branflakes, lunch: berries, pineapple, hard boiled eggs, trotter peppers, cucumbers, Dinner: Salad, steak. Discussed adding on a GLP, forms completed by PCP for Ozempic but got denied for program assistance. Patient [...] sugar(s) 1 daily. Dx: E11.9. Insulin: No Peterson-3 Fatty Acids-Vitamin E 1,000 mg cap Take [...] General Appearance: Well (more content not included)... [facility] 12-04-2022 Miscellaneous Notes Forms faxed. Virginia Salcedo [...] STEFAN Conrad upon her return to office. Chad received patient Hugo Nordisk application for Ozempic. Chad will take forms to STEFAN Conrad for Ozempic prescription completion. Chad attached cover sheet. Forms once complete may be faxed to [phone]. Patient and spouse let Sw know that they mailed back Hugo Nordisk-ozmepic application to SW. Sw noted that she would look out for application in the mail. documented in this encounter [facility] 11-13-2022 Miscellaneous Notes Sw received consult regarding PAP need for Novocare Ozempic. See 11/12/22 Sw response to consult. will also send patient Tivra message to reach out to patient. documented in this encounter [facility] 11-12-2022 Miscellaneous Notes Travon Parks, I spoke with Kate, can you please assist me with getting a Novocare application started for this patient to see if we can get coverage for Ozempic? I placed consult to CHAD. Thank you. Radha Szymanski APRN.TIER [place] documented in this encounter [facility] 11-11-2022 Note HNO ID: [id number] Author: Radha Szymanski APRN.TIER IN Service: ? Author Type: Nurse Practitioner Type: [...] sugar(s) 1 daily. Dx: E11.9. Insulin: No Peterson-3 Fatty Acids-Vitamin E 1,000 mg cap Take [...] 8.8 (H) Rachel (more content not included)... [facility] 11-11-2022 Instructions Radha Szymanski APRN.CNP - 11/11/2022 7:43 AM EST Continue to take all medications as prescribed. Work on eating a low carb diet, increase protein, veggies, and get some form of exercise. Will discuss medications with Clinical pharmacy, I will call you with options. Get repeat labs in 3 months Follow up in 3 months or sooner as needed. documented in this encounter [facility] 11-11-2022 History of Presen t illness [...] sugar(s) 1 daily. Dx: E11.9. Insulin: No Peterson-3 Fatty Acids-Vitamin E 1,000 mg cap Take [...] APRN.CNP This note was partially generated using [employer] voice recognition system. Note was reviewed for accuracy. There may be minor misspellings or grammar miscues with [employer] voice recognition. documented in this encounter [facility] 08-12-2022 Instructions Radha Szymanski APRN.CNP - [...] in 3 months. documented in this encounter [facility] 08-12-2022 History of Presen t illness [...] eating a lot of berries. 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 BPH: Taking Flomax 0.4 mg [...] sugar(s) 1 daily. Dx: E11.9. Insulin: No Peterson-3 Fatty Acids-Vitamin E 1,000 mg cap Take [...] APRN.SHARON This note was partially generated using [employer] voice recognition system. Note was reviewed for accuracy. There may be minor misspellings or grammar miscues with [employer] voice recognition. documented in this encounter [facility] 06-27-2022 History of Presen t illness [...] Dx: E11.9. Insulin: No 100 Each 3 Peterson-3 Fatty Acids-Vitamin E 1,000 mg cap Take [...] Louann Hunter PA-C documented in this encounter [facility] 06-02-2022 History of Presen t illness [...] Dx: E11.9. 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 2.) Increase Farxgia 10 mg daily. Continue to check sugars and home and write down. Be mindful of what fruit you eat. Increase protein and veggies. 3.) Continue to take all medication as prescribed. 4.) Follow up in 3 months or sooner as needed. documented in this encounter [facility] 05-13-2022 History of Presen t illness [...] Use as instructed; Once daily; Dx 250.00 Peterson-3 Fatty Acids-Vitamin E (FISH OIL) 1,000 mg [...] discussed and patient voices understanding. Radha Szymanski APRN.TIER IN This note was partially generated using [employer] recognition system. Note was reviewed for accuracy. There may be minor misspellings or grammar miscues with [employer] voice recognition. documented in this encounter [facility] 03-04-2022 Miscellaneous Notes The following approved medication requests have been transmitted electronically. Signed Prescriptions Disp Refills metFORMIN (GLUCOPHAGE) 1,000 mg tablet 180 tablet 3 Sig: Take 1 tablet by mouth twice daily with meals. NIKKI: No Authorizing Provider: BERNARDO TORO Ma OK to refill as ordered Bernardo Toro MD Sona with [facility] called in asking for [...] Renae Best RN documented in this encounter [facility] 02-12-2022 Miscellaneous Notes Pt notified and voiced understanding. Virginia Salcedo Ma We may try Farxiga, but it may be the same marley, If it is not affordable then I would suggest just trying to work on diet for the next 3 months and see if the A1c will keep coming down. Bernardo Toro MD Patient called in advising [email or web address] rx is $445 but could not afford that. Did look into this to make sure prior auth is not needed. Medication is covered under medicare but this is the marley of the drug. No cheaper discount found on [employer] and does not qualify for discount card on [employer] website since has Medicare. Please review and let patient know if something else can be prescribed. Althea Rogers Ma documented in this encounter [facility] 02-10-2022 Miscellaneous Notes Forms completed and most recent OV sent on 02/10/22. Faxed to number below. Prema Lopez Ma Type of letter/form/fax request - pre op form-eye surgery Form received from fax on 1 floor and placed on MD desk (Dr. Toro) for completion. Completed form needs to be faxed to Dr. Alex Cook MD with [facility] at [phone]. Pt last office visit was in November. Surgeon's office asking for H&P within 30 days. Pt scheduled for surgery 02/20/22. Pt scheduled for appt on 02/10/22. Forms placed in upcoming appt folder. Route to ID when form completed for processing documented in this encounter [facility] 02-10-2022 History of Presen t illness [...] Taking Diovan 160 mg daily. 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 DM: Checks BS 1-2 times [...] daily. Dx: Type 2 DM - Uncontrolled E11. Insulin: No; PT USES ONE TOUCH ULTRA [...] daily. Dx: Type 2 DM - Uncontrolled . Insulin: No; PT USES ONE TOUCH ULTRA [...] Use as instructed; Once daily; Dx 250.00 Peterson-3 Fatty Acids-Vitamin E (FISH OIL) 1,000 mg [...] Past Histories independently gathered by the clinical technical support coordinator and the remaining scribed note accurately describes [...] Prema Lopez Ma documented in this encounter [facility] documented as of this encounter (statuses as of 02/10/2022) [facility] History of Past illness Narrative* Problem [...] of this encounter (statuses as of 02/10/2022) [facility] Narrative* Problem [...] of this encounter (statuses as of 02/11/2022) [facility] Narrative* Problem [...] of this encounter (statuses as of 02/12/2022) [facility] Narrative* Problem [...] of this encounter (statuses as of 03/04/2022) [facility] Narrative* Problem [...] of this encounter (statuses as of 05/13/2022) [facility] Narrative* Problem [...] of this encounter (statuses as of 06/02/2022) [facility] Narrative* Problem [...] of this encounter (statuses as of 06/27/2022) [facility] Narrative* Problem [...] of this encounter (statuses as of 08/12/2022) [facility] Narrative* Problem [...] of this encounter (statuses as of 11/11/2022) [facility] Narrative* Problem [...] of this encounter (statuses as of 11/12/2022) [facility] Narrative* Problem [...] of this encounter (statuses as of 2022) [facility] Narrative* Problem [...] of this encounter (statuses as of 12/04/2022) [facility] Narrative* Problem [...] of this encounter (statuses as of 02/24/2023) [facility] Narrative* Problem [...] of this encounter (statuses as of 02/24/2023) [facility] Narrative* Problem Noted Date Diagnosed Date Resolved Date Coagulopathy 11/11/2011 02/02/2017 Routine general medical exam ination at a health care facility 08/19/2011 12/07/2012 Overview: 08/19/2011, from Dr. Justin Curielofibremily 02/13/2011 12/07/2012 Neoplasm of uncertain behavior of skin 02/05/2011 12/07/2012 Sciatica 07/27/2007 12/07/2012 Unspecified essential hypertension 03/23/2007 05/26/2012 SKIN TAGS, HEMORRHOIDAL 06/03/2006 11/2012 Elevated blood pressure read ing without diagnosis of hypertension 07/29/2005 03/23/2007 Obesity, unspecified 07/29/2005 010 Abdominal pain, epigastric 1 09/28/2004 documented as of this encounter (statuses as of 03/16/2023) [facility] Narrative* Problem [...] of this encounter (statuses as of 04/19/2023) [facility] Narrative* Problem [...] of this encounter (statuses as of 04/30/2023) [facility] Narrative* Problem [...] of this encounter (statuses as of 05/07/2023) [facility] Narrative* Problem [...] of this encounter (statuses as of 05/12/2023) [facility] Narrative* Problem [...] of this encounter (statuses as of 06/18/2023) [facility] Narrative* Problem [...] of this encounter (statuses as of 06/24/2023) [facility] Narrative* Problem Noted Date Diagnosed Date Resolved Date Coagulopathy 11/11/2011 02/02/2017 Routine general medical exam ination at a health care facility 08/19/2011 12/07/2012 Overview: 08/19/2011, from Dr. Anderson Dermatofibroma 02/13/2011 12/07/2012 Neoplasm of uncertain behavior of skin 02/05/2011 12/07/2012 Sciatica 07/27/2007 12/07/2012 Unspecified essential hypertension 03/23/2007 05/26/2012 SKIN TAGS, HEMORRHOIDAL 06/03/2006/0 11/2012 Elevated blood pressure read ing without diagnosis of hypertension 07/29/2005 03/23/2007 Obesity, unspecified 07/29/2005 010 Abdominal pain, epigastric 1 09/28/2004 documented as of this encounter (statuses as of 07/11/2023) [facility] Narrative* Problem Noted Date Diagnosed Date Resolved Date Coagulopathy 11/11/2011 02/02/2017 Routine general medical exam ination at a health care facility 08/19/2011 12/07/2012 Overview: 08/19/2011, from Dr. Anderson Dermatofibroma 02/13/2011 12/07/2012 Neoplasm of uncertain behavior of skin 02/05/2011 12/07/2012 Sciatica 07/27/2007 12/07/2012 Unspecified essential hypertension 03/23/2007 05/26/2012 SKIN TAGS, HEMORRHOIDAL 06/03/200611/2012 Elevated blood pressure read ing without diagnosis of hypertension 07/29/2005 03/23/2007 Obesity, unspecified 07/29/2005 010 Abdominal pain, epigastric 1 09/28/2004 documented as of this encounter (statuses as of 07/15/2023) [facility] Diagnosis Controlled type 2 diabetes mellitus [...] whether esophagitis present [facility] Diagnosis Controlled type 2 diabetes mellitus without complication, without long-term current use of insulin (HCC) [facility] Diagnosis Controlled type 2 diabetes mellitus [...] Psoriasis Other psoriasis [facility] Diagnosis Yeast dermatitis of penis- Primary Candidiasis of other urogenital sites [facility]* Diagnosis Ankle wound, left, initial encounter- Primary Canker sore Oral aphthae [facility]* Diagnosis Controlled type 2 diabetes mellitus without complication, without long-term current use of insulin (HCC)- Primary Essential hypertension, benign Mixed hyperlipidemia Gastroesophageal reflux disease, unspecified whether esophagitis present BPH with obstruction/lower urinary tract symptoms Hypertrophy of prostate with urinary obstruction and other lower urinary tract symptoms (LUTS) documented in this encounter [facility] note* Diagnosis Controlled type 2 diabetes mellitus without complication, without long-term current use of insulin (HCC)- Primary [facility]* Diagnosis Controlled type 2 diabetes mellitus without complication, without long-term current use of insulin (HCC)- Primary documented in this encounter [facility] note* Diagnosis Controlled type 2 diabetes mellitus without complication, without long-term current use of insulin (HCC)- Primary [facility]* Diagnosis Controlled type 2 diabetes mellitus without complication, without long-term current use of insulin (HCC) [facility]* Diagnosis Controlled type 2 diabetes mellitus without complication, without long-term current use of insulin (HCC)- Primary [facility]* Diagnosis Controlled type 2 diabetes mellitus without complication, without long-term current use of insulin (HCC) documented in this encounter [facility] note* Diagnosis Controlled type 2 diabetes mellitus [...] Dermatophytosis of nail [facility] Diagnosis Right shoulder pain, unspecified chronicity- Primary documented in this encounter [facility] note* Diagnosis Left shoulder pain, unspecified chronicity- Primary Chronic pain of both shoulders Pain in joint, shoulder region Shoulder impingement Other affections of shoulder region, not elsewhere classified documented in this encounter [facility] note* Diagnosis Right shoulder pain, unspecified chronicity Left shoulder pain, unspecified chronicity [facility] Diagnosis Controlled type 2 diabetes mellitus without complication, without long-term current use of insulin (HCC)- Primary documented in this encounter [facility] for referral (narrative)* Diagnostic Procedure Only (Routine) - Pending Review Specialty Diagnoses / Procedures Referred By Sindyac t Referred To Contact XR IMAGING Diagnoses Right shoulder pain, unspecified chronicity Procedures XR SHOULDER GENERAL 3V OR MORE AP/TRUE AP/OTHER RIGHT RADEX SHOULDER COMPLETE MINIMUM 2 VIEWS Joe Salomon MD [address] [place] [address] [place] [address] Referral ID Status Reason Start Date Expiration Date Visits Requested Visits Authorized [id number] Pending Review Auto-Generat ed Referral 07/16/2024 1 1 [facility] for referral (narrative)* Diagnostic Procedure Only (Routine) - Closed Specialty Diagnoses / Procedures Referred By Ziggy t Referred To Contact XR IMAGING Diagnoses Left shoulder pain, unspecified chronicity Procedures XR SHOULDER GENERAL 3V OR MORE AP/TRUE AP/OTHER LEFT RADEX SHOULDER COMPLETE MINIMUM 2 VIEWS Joe Salomon MD [address] [place] [address] [place] [address] Referral ID Status Reason Start Date Expiration Date V isits Requested Visits Authorized [id number] Closed Auto-Generate d Referral 06/24/2023 07/23/2024 1 1 [facility] for referral (narrative)* Diagnostic Procedure Only (Routine) - Closed Specialty Diagnoses / Procedures Referred By Contac t Referred To Contact XR IMAGING Diagnoses Left shoulder pain, unspecified chronicity Procedures XR SHOULDER GENERAL 3V OR MORE AP/TRUE AP/OTHER LEFT RADEX SHOULDER COMPLETE MINIMUM 2 VIEWS Joe Salomon MD [address] [place] [address] [place] [address] Referral ID Status Reason Start Date Expiration Date V isits Requested Visits Authorized [id number] Closed Auto-Generate d Referral 06/24/2023 07/23/2024 1 1 * Diagnostic Procedure Only (Routine) - Closed Specialty Diagnoses / Procedures Referred By Ziggy yu Referred To Contact XR IMAGING Diagnoses Right shoulder pain, unspecified chronicity Procedures XR SHOULDER GENERAL 3V OR MORE AP/TRUE AP/OTHER RIGHT RADEX SHOULDER COMPLETE MINIMUM 2 VIEWS Joe Salomon MD [address] [place] [address] [place] [address] Referral ID Status Reason Start Date Expiration Date V isits Requested Visits Authorized [id number] Closed Auto-Generate d Referral 06/17/2023 07/16/2024 1 1 [facility] for visit Narrative* Diagnostic Procedure Only (Routine) - Closed Specialty Diagnoses / Procedures Referred By Ziggy yu Referred To Contact XR IMAGING Diagnoses Right shoulder pain, unspecified chronicity Procedures XR SHOULDER GENERAL 3V OR MORE AP/TRUE AP/OTHER RIGHT RADEX SHOULDER COMPLETE MINIMUM 2 VIEWS Joe Salomon MD [address] [place] [address] [place] [address] Referral ID Status Reason Start Date Expiration Date V isits Requested Visits Authorized [id number] Closed Auto-Generate d Referral 06/17/2023 07/16/2024 1 1 [facility] Reason for Referral Specialty Diagnoses / Procedures Referred By Ziggy yu Referred To Contact Podiatry Diagnoses Nail fungus Procedures CONSULT TO PODIATRY OFFICE/OUTPATIENT [facility] 60-74 MINUTES Radha Szymanski, ASHANTI.TIER [place] [address] [place] [address] Referral ID Status Reason Start Date Expiration Date Visits Requested Visits Authorized [id number] Authorized PCP Requested Referral 05/12/2023 05/11/2024 1 [...] or prosecute any alcohol or drug abuse patient.[facility] the event this information is protected by the Federal Confidentiality of Alcohol and Drug Abuse Patient Records regulations: The Federal rules restrict any use of the information to criminally investigate or prosecute any alcohol or drug abuse patient.[facility] the event this information is protected by the Federal Confidentiality of Alcohol and Drug Abuse Patient Records regulations: The Federal rules restrict any use of the information to criminally investigate or prosecute any alcohol or drug abuse patient.[facility] the event this information is protected by the Federal Confidentiality of Alcohol and Drug Abuse Patient Records regulations: The Federal rules restrict any use of the information to criminally investigate or prosecute any alcohol or drug abuse patient.[facility] the event this information is protected by the Federal Confidentiality of Alcohol and Drug Abuse Patient Records regulations: The Federal rules restrict any use of the information to criminally investigate or prosecute any alcohol or drug abuse patient.[facility] the event this information is protected by the Federal Confidentiality of Alcohol and Drug Abuse Patient Records regulations: The Federal rules restrict any use of the information to criminally investigate or prosecute any alcohol or drug abuse patient.[facility] the event this information is protected by the Federal Confidentiality of Alcohol and Drug Abuse Patient Records regulations: The Federal rules restrict any use of the information to criminally investigate or prosecute any alcohol or drug abuse patient.[facility] the event this information is protected by the Federal Confidentiality of Alcohol and Drug Abuse Patient Records regulations: The Federal rules restrict any use of the information to criminally investigate or prosecute any alcohol or drug abuse patient.[facility] the event this information is protected by the Federal Confidentiality of Alcohol and Drug Abuse Patient Records regulations: The Federal rules restrict any use of the information to criminally investigate or prosecute any alcohol or drug abuse patient.[facility] the event this information is protected by the Federal Confidentiality of Alcohol and Drug Abuse Patient Records regulations: The Federal rules restrict any use of the information to criminally investigate or prosecute any alcohol or drug abuse patient.[facility] the event this information is protected by the Federal Confidentiality of Alcohol and Drug Abuse Patient Records regulations: The Federal rules restrict any use of the information to criminally investigate or prosecute any alcohol or drug abuse patient.[facility] HospitalIn the event this information is protected by the Federal Confidentiality of Alcohol and Drug Abuse Patient Records regulations: The Federal rules restrict any use of the information to criminally investigate or prosecute any alcohol or drug abuse patient.[facility] HospitalIn the event this information is protected by the Federal Confidentiality of Alcohol and Drug Abuse Patient Records regulations: The Federal rules restrict any use of the information to criminally investigate or prosecute any alcohol or drug abuse patient.[facility] HospitalIn the event this information is protected by the Federal Confidentiality of Alcohol and Drug Abuse Patient Records regulations: The Federal rules restrict any use of the information to criminally investigate or prosecute any alcohol or drug abuse patient.[facility] HospitalIn the event this information is protected by the Federal Confidentiality of Alcohol and Drug Abuse Patient Records regulations: The Federal rules restrict any use of the information to criminally investigate or prosecute any alcohol or drug abuse patient.[facility] HospitalIn the event this information is protected by the Federal Confidentiality of Alcohol and Drug Abuse Patient Records regulations: The Federal rules restrict any use of the information to criminally investigate or prosecute any alcohol or drug abuse patient.[facility] HospitalIn the event this information is protected by the Federal Confidentiality of Alcohol and Drug Abuse Patient Records regulations: The Federal rules restrict any use of the information to criminally investigate or prosecute any alcohol or drug abuse patient.[facility] HospitalIn the event this information is protected by the Federal Confidentiality of Alcohol and Drug Abuse Patient Records regulations: The Federal rules restrict any use of the information to criminally investigate or prosecute any alcohol or drug abuse patient.[facility] HospitalIn the event this information is protected by the Federal Confidentiality of Alcohol and Drug Abuse Patient Records regulations: The Federal rules restrict any use of the information to criminally investigate or prosecute any alcohol or drug abuse patient.[facility] HospitalIn the event this information is protected by the Federal Confidentiality of Alcohol and Drug Abuse Patient Records regulations: The Federal rules restrict any use of the information to criminally investigate or prosecute any alcohol or drug abuse patient.[facility] HospitalIn the event this information is protected by the Federal Confidentiality of Alcohol and Drug Abuse Patient Records regulations: The Federal rules restrict any use of the information to criminally investigate or prosecute any alcohol or drug abuse patient.[facility] HospitalIn the event this information is protected by the Federal Confidentiality of Alcohol and Drug Abuse Patient Records regulations: The Federal rules restrict any use of the information to criminally investigate or prosecute any alcohol or drug abuse patient.[facility] HospitalIn the event this information is protected by the Federal Confidentiality of Alcohol and Drug Abuse Patient Records regulations: The Federal rules restrict any use of the information to criminally investigate or prosecute any alcohol or drug abuse patient.[facility] HospitalIn the event this information is protected by the Federal Confidentiality of Alcohol and Drug Abuse Patient Records regulations: The Federal rules restrict any use of the information to criminally investigate or prosecute any alcohol or drug abuse patient.[facility] Reason for Visit (unrecogniz ed section [...] Care Teams (unrecognized sec tion and content) [employer] Prize Packer Relationship Specialty Start Date End Date Bernardo Toro MD [address] [place] [address] PCP - General Family Practice 05/26/[address] [address] Physician Optometry 09/09/20 Green Prize Packer Relationship Specialty Start Date End Date Bernardo Toro MD [address] [place] [address] PCP - General Family Practice 05/26/[address] [address] Physician Optometry 09/09/20 Green Prize Packer Relationship Specialty Start Date End Date Bernardo Toro MD [address] [place] [address] PCP - General Family Practice 05/26/[address] [address] Physician Optometry 09/09/20 Green Prize Packer Relationship Specialty Start Date End Date Bernardo Toro MD [address] [place] [address] PCP - General Family Practice 05/26/[address] [address] Physician Optometry 09/09/20 Green Prize Packer Relationship Specialty Start Date End Date Bernardo Toro MD [address] [place] [address] PCP - General Family Medicine 05/26/[address] [address] Physician Optometry 09/09/20 Green Prize Packer Relationship Specialty Start Date End Date Bernardo Toro MD [address] [place] [address] PCP - General Family Medicine 05/26/12 Fig[address] Adriano [address] [address] Physician Optometry 09/09/20 Green Prize Packer Relationship Specialty Start Date End Date Bernardo Toro MD [address] [place] [address] PCP - General Family Medicine 05/26/[address] [address] Physician Optometry 09/09/20 Green Prize Packer Relationship Specialty Start Date End Date Bernardo Toro MD [address] [place] [address] PCP - General Family Medicine 05/26/[address] [address] Physician Optometry 09/09/20 Green Prize Packer Relationship Specialty Start Date End Date Bernardo Toor MD [address] [place] [address] PCP - General Family Medicine 05/26/[address] [place] [address] Physician Optometry 09/09/20 Green Prize Packer Relationship Specialty Start Date End Date Bernardo Toro MD [address] [place] [address] PCP - General Family Medicine 05/26/12 [address] [place] [address] Physician Optometry 09/09/20 Green Prize Packer Relationship Specialty Start Date End Date Bernardo Toro MD [address] [place] [address] PCP - General Family Medicine 05/26/12 [address] [place] [address] Physician Optometry 09/09/20 Green Prize Packer Relationship Specialty Start Date End Date Bernardo Toro MD [address] [place] [address] PCP - General Family Medicine 05/26/12 [address] [place] [address] Physician Optometry 09/09/20 Green Prize Packer Relationship Specialty Start Date End Date Bernardo Toro MD [address] [place] [address] PCP - General Family Medicine 05/26/12 [address] [place] [address] Physician Optometry 09/09/20 Green Prize Packer Relationship Specialty Start Date End Date Bernardo Toro MD [address] [place], [place] 081671 PCP - General Family Medicine 05/26/12 [address] [place] [address] [id number] Physician Optometry 09/09/20 Green Prize Packer Relationship Specialty Start Date End Date Bernardo Toro MD [address] [place], [place] [address] [phone] PCP - General Family Medicine 05/26/12 [address]a [address] [place] [address] [id number] Physician Optometry 09/09/20 Green Prize Packer Relationship Specialty Start Date End Date Bernardo Toro MD [address] [place] [address] PCP - General Family Medicine 05/26/12 Adriano Figueroa, OD [address] [place] [id number] Physician Optometry 09/09/20 Green Prize Packer Relationship Specialty Start Date End Date Bernardo Toro MD [address] [place] [address] PCP - General Family Medicine 05/26/12 Adriano Figueroa, OD [address] [place] [address] [id number] Physician Optometry 09/09/20 Green Prize Packer Relationship Specialty Start Date End Date Bernardo Toro MD [address] [place] [address] PCP - General Family Medicine 05/26/12 Adriano Figueroa, OD [address] [place] [address] Physician Optometry 09/09/20 Green Prize Packer Relationship Specialty Start Date End Date Bernardo Toro MD [address] [place], [place] 377291 PCP - General Family Medicine 05/26/12 Adriano Figueroa, OD [address] [place] [address] Physician Optometry 09/09/20 (unrecognized sect ion and content) No Status Records FoundNo Status Records Found INFORMATION SOURCE (unrecogn ized section and content) DATE CREATED AUTHOR AUTHOR'S ORGANIZ ATION 09/14/2023 [facility] FOR RECORDS PERTAINING TO PATIENTS WHO ARE [...] BE BASED ON THE PRIMARY CLINICAL RECORDS. [employer] [facility]. provides no warranty or guarantee of the accuracy or completeness of information in this document.
[2023-10-01] MEDS: Lidocaine 5% Patch 1 PATCH TOPICAL (17:21)
== END 2023-10-01 17:28 | disposition home or self-care (01) ==
PROVIDERS: Emergency Provider Emergency Medicine; PCP Nurse Practitioner Family; Visit Provider Emergency Medicine
DX: I82.441 Acute embolism and thrombosis of right tibial vein (principal); I82.461 Acute embolism and thrombosis of right calf muscular vein; E11.9 Type 2 diabetes mellitus without complications; M79.604 Pain in right leg; E78.5 Hyperlipidemia, unspecified; I10 Essential (primary) hypertension; K21.9 Gastro-esophageal reflux disease without esophagitis; Z79.84 Long term (current) use of oral hypoglycemic drugs; Z79.899 Other long term (current) drug therapy
CPT/HCPCS: 93971; 99284

== ENCOUNTER → 2024-06-05 | Outpatient (CLI) | payer MEDICARE, OTHER, SELFPAY ==
--- NOTE | 2024-06-05 06:46 | MRI_ITS ---
STUDY: MRI BRAIN WITH AND WITHOUT CONTRAST (ATTENTION INTERNAL AUDITORY CANALS - I.A.C.''s) REASON FOR EXAM: Male, 78 years old. LT ASYMMETRIC HEARING LOSS TECHNIQUE: Standardized multiplanar fat and water weighted pulse sequences were obtained. IV 17ml Clariscan was administered for the contrast portion of the examination. COMPARISON: None. FINDINGS: Normal bilateral temporal bones. Normal bilateral internal auditory canals. There is no demonstrated intracanalicular or cisternal vestibular schwannoma (acoustic neuroma). There is no enhancement of the bilateral VIIth or VIIIth cranial nerves. Normal bilateral cochlea, vestibules and semicircular canals. Normal size of the ventricles and extra-axial spaces for the patient''s age. Normal white matter tracts of the supratentorial brain. Normal bilateral basal ganglia. Normal thalami. Normal flow voids within the major intracranial circulation suggesting patency by spin echo criteria. Normal venous enhancement. There is no enhancing intra-axial or extra-axial abnormality. There is no extra-axial fluid accumulation. Normal sella turcica, pituitary gland, infundibular stalk, optic chiasm and hypothalamus. Normal tectal plate and pineal gland. Normal midbrain, [place] and medulla. Normal cerebellum. Normal basal cisterns. No demonstrated orbital abnormality, within the constraints of a routine brain study. Normal visualized paranasal sinuses. Normal calvarium and skull base. Normal visualized soft tissue structures. Normal visualized upper cervical spine. MRI/Brain W/WO Contrast IMPRESSION: Normal unenhanced and enhanced MRI of the brain and bilateral internal auditory canals (I.A.C''s). Electronically Signed: Christiano Murillo MD at 8:13 EDT ,
[2024-06-05 07:23] LABS: CREATININE FINGERSTICK < 1.0 mg/dL (0.70-1.30); EGFR FINGERSTICK > 60.0000 mL/min (>60)
== END | disposition home or self-care (01) ==
LOC: MRI 06:41
PROVIDERS: PCP Nurse Practitioner Family; Referring Provider Otolaryngology; Visit Provider Otolaryngology
DX: H90.42 Sensorineural hearing loss, unilateral, left ear, with unrestricted hearing on the contralateral side (principal)
CPT/HCPCS: 70553; A9575

== ENCOUNTER 2024-08-20 00:14 | Emergency (ER) | payer MEDICARE, OTHER, SELFPAY ==
[2024-08-20 00:15] VITALS: BP 110/49; PULSE 69; RESP 17; TEMP 36.4; O2SAT 96; BMI 27.4
--- NOTE | 2024-08-20 00:42 | EKG12_ITS ---
Test Reason : DYSRHYTHMIA Blood Pressure : */* mmHG Vent. Rate : 66 BPM Atrial Rate : * BPM P-R Int : * ms QRS Dur : 134 ms QT Int : 466 ms P-R-T Axes : * -4 128 degrees QTcB Int : 488 ms Sinus rhythm with 1st degree A-V block Type I Second Degree AV Block Left bundle branch block Abnormal ECG Confirmed by CARRIE KENNEY, BONNIE ([id number]), news copy editor PARISA MARTINEZ ([id number]) on 08/23/2024 1:40:57 P M Referred By: DORIS Confirmed By: BONNIE BUTLER MD
--- NOTE | 2024-08-20 00:42 | RAD_ITS ---
EXAM: XR PELVIS, 1 OR 2 VIEWS CLINICAL INDICATION: fall TECHNIQUE: 2 frontal views of the pelvis. COMPARISON: No relevant prior studies available. FINDINGS: BONES/JOINTS: Unremarkable. No displaced fracture. No destructive or sclerotic lesions. Note that overlapping bowel shadows may however obscure fine detail. Sacroiliac joints are unremarkable. No widening of the pubic symphysis. The articular structures are unremarkable. Lower lumbar degenerative disc disease and facet arthritis are present. SOFT TISSUES: Unremarkable. No soft tissue swelling or gas. RAD/Pelvis 1 or 2 Views IMPRESSION: No acute fracture or dislocation. Electronically Signed: Anish Harp MD at 1:32 EST ,
--- NOTE | 2024-08-20 00:42 | CT_ITS ---
EXAM: CT HEAD WITHOUT INTRAVENOUS CONTRAST CLINICAL INDICATION: syncope and head injury TECHNIQUE: Multiple axial images were obtained of the head without intravenous contrast. This CT exam was performed using one or more of the following dose reduction techniques: automated exposure control, adjustment of the mA and/or kV according to patient size, and/or use of iterative reconstruction technique. RADIATION DOSE: Total DLP: 846.73 mGy-cm. COMPARISON: No relevant prior studies available. FINDINGS: BRAIN AND EXTRA-AXIAL SPACES: Very mild age-related cortical atrophy is present with prominence of cortical sulci, basal cisterns and sylvian fissures. Ventricles are normal in size and shape when allowing for patient age and degree of atrophy. Minimal cerebellar atrophy is also noted. No intra- or extra-axial hemorrhage. No evidence of acute infarct. No intracranial mass or mass effect. There is preservation of the sales/white matter interface. BONES/JOINTS: No linear or depressed skull fracture. SOFT TISSUES: Unremarkable. No scalp hematoma. VASCULATURE: Atherosclerotic calcification is present. The middle cerebral arteries are not hyperdense. SINUSES: Previous sinus surgery. Minimal mucosal thickening within the left maxillary antrum which shows a slightly thickened and sclerotic wall due to chronic sinusitis. Minimal mucosal thickening also noted along the roof of the right maxillary antrum. MASTOID AIR CELLS: Unremarkable. Clear. ORBITS: Previous cataract extraction. CT/Brain/Head without Contrast IMPRESSION: 1. Very mild atrophy. 2. Minimal maxillary sinus mucosal thickening. 3. No skull fracture or acute intracranial abnormality. Electronically Signed: Anish Harp MD at 1:37 EST ,
--- NOTE | 2024-08-20 00:43 | CT_ITS ---
EXAM: CT CERVICAL SPINE WITHOUT INTRAVENOUS CONTRAST CLINICAL INDICATION: fall TECHNIQUE: Helically acquired images were obtained of the cervical spine without intravenous contrast. 2D reformatted images were reviewed. This CT exam was performed using one or more of the following dose reduction techniques: automated exposure control, adjustment of the mA and/or kV according to patient size, and/or use of iterative reconstruction technique. RADIATION DOSE: Total DLP: 405.68 mGy-cm. COMPARISON: Cervical CT of 08/30/2023. FINDINGS: VERTEBRAE: Slight degenerative anterior subluxation of C2 on C3 and of C7 on T1 secondary to extensive facet arthritis. Within the anterior aspect of the C3 vertebral body is a stable 5 mm rounded lucency, felt be benign. No compression fracture, posterior element fracture or facet dislocation. The odontoid is intact. DISCS/SPINAL CANAL/NEURAL FORAMINA: Mid to lower cervical disc spaces show degenerative disc space narrowing with marginal osteophytes, endplate sclerosis and uncinate hypertrophy; the disc space narrowing is more severe at the C5/6 and C6/7 levels. Annular bulges and posterior osteophytes at the degenerated levels mildly flatten the ventral aspect of the sac. No critical thecal sac stenosis. Multilevel neural foraminal encroachment is present due to uncinate and facet hypertrophy, greatest on the right at the C3/4 level. SOFT TISSUES: Unremarkable. No prevertebral soft tissue swelling. MASTOID AIR CELLS: The visualized mastoid air cells are clear. LUNG APICES: Visualized upper lungs are clear. Visualized upper ribs are intact. CT/Spine Cervical without Contras IMPRESSION: Extensive cervical degenerative changes. No acute fracture or traumatic subluxation. Electronically Signed: Anish Harp MD at 1:44 EST ,
--- NOTE | 2024-08-20 00:43 | EX.ED.DYSGE1 ---
HPI History of Present Illness Chief Complaint: Syncope Informant: patient, spouse/S.O. and EMS Narrative Narrative: Patient is a 78-year-old male with past medical history of hypertension GERD diabetes and BPH. He states he has not been taking his Flomax for the past 2 weeks and tonight took 2 pills before bed. He states he awoke because he needed to use the restroom and after standing to walk felt lightheaded and dizzy and fell backwards. He states he struck the back of his head on the nightstand. reports she heard the thud and ran to the room and he was awake but then had a brief syncopal event following this. Patient denies any palpitations or chest pain prior to the event but with his head injury and syncopal event he was brought in for further evaluation [facility] Medical History (Updated 08/20/24 @ 05:[address] Anselmo Trevino, DO) Factor 5 Leiden mutation, heterozygous Streptococcal pneumonia [place] (acute kidney injury) Aspiration pneumonia Hypoxemia GERD (gastroesophageal reflux disease) Diabetes Hypertension Home Medications ?Medication ?Instructions ?Recorded ?Last Taken ?Type atorvastatin 80 mg tablet 80 mg PO DAILY 08/30/23 08/30/23 History glimepiride 4 mg tablet 4 mg PO DAILY 08/30/23 08/30/23 History liraglutide 0.6 mg/0.1 mL (18 mg/3 1.2 mg subcut DAILY 08/30/23 08/30/23 History mL) subcutaneous pen injector metformin 1,000 mg tablet 1,000 mg PO BID 08/30/23 08/30/23 History multivitamin (Daily Value tablet) 1 tab PO DAILY 08/30/23 08/30/23 History omega-3 fatty acids 1,000 mg 1,000 mg PO DAILY 08/30/23 08/30/23 History capsule (Super Lemitar-3) omeprazole 20 mg capsule,delayed 20 mg PO DAILY 08/30/23 08/30/23 History release pioglitazone 45 mg tablet 45 mg PO DAILY 08/30/23 08/30/23 History risankizumab-rzaa 150 mg/mL 150 mg subcut .COMPLEX 08/30/23 06/17/23 History subcutaneous syringe (Skyrizi) tamsulosin 0.4 mg capsule 0.4 mg PO BID 08/30/23 08/29/23 History valsartan 160 mg tablet (Diovan) 160 mg PO DAILY 08/30/23 08/30/23 History ciclopirox and nail lacquer 1 ea topical DAILY 08/20/24 Unknown History remover 8 % topical kit semaglutide 0.25 mg or 0.5 mg (2 0.25 mg subcut QWEEK 08/20/24 Unknown History mg/3 mL) subcutaneous pen injector (Ozempic) Allergy/AdvReac Type Severity Reaction Status Date / Time No Known Allergies Allergy Verified 08/20/24 00:25 Social History Smoking Status: Never smoker ROS ROS ED Constitutional Constitutional ED: Denies chills or fever(s) Eyes Eyes: Denies blurry vision or change in vision ENT ENT ED: Denies sore throat Cardiovascular Cardiovascular: Reports other Details: Positive syncope ; Denies chest pain, palpitations or racing heartbeat Respiratory/Chest Respiratory/Chest: Denies cough or dyspnea Gastrointestinal Gastrointestinal: Denies abdominal pain, diarrhea, nausea or vomiting Genitourinary Genitourinary ED: Denies dysuria Musculoskeletal Musculoskeletal: Denies back pain or neck pain Integumentary Reports other Details: Positive scalp laceration Neurologic Neurologic: Reports weakness and other Details: Positive syncope Hematologic/Lymphatic Hematologic/Lymphatic: Denies easy bleeding or easy bruising EXAM Physical Exam Const Vital Signs: 08/20/24 00:15 08/20/24 01:14 08/20/24 02:00 Temperature 97.5 F L Temperature Source Oral Pulse Rate 69 77 72 Respiratory Rate 17 18 15 Blood Pressure 110/49 L 122/65 H 125/75 H Blood Pressure Mean 69 84 91 Pulse Ox 96 99 98 Oxygen Delivery Method Room Air Room Air 08/20/24 02:48 Temperature 97.5 F L Temperature Source Pulse Rate 72 Respiratory Rate 15 Blood Pressure 125/75 H Blood Pressure Mean 91 Pulse Ox 98 Oxygen Delivery Method Positive well nourished and well developed General Appearance ED: well developed HEENT HEENT Narrative: Mucous membranes are slightly dry and tacky No tongue or cheek biting noted No secondary findings in the posterior pharynx to suggest infection No signs of depressed or basilar skull fracture Patient has a linear 6 cm laceration over top the midportion of the occipital skull that is subcutaneous layer deep with minimal ooze of blood and no retained foreign body Eyes PERRL and EOMs intact bilaterally General Eye ED: Negative for pale conjunctiva or scleral icterus Neck supple Neck Narrative: No bony deformity or step-off of the cervical spine no midline tenderness to palpation Chest Wall palpation of chest normal Chest Narrative: No bony deformity or crepitance Resp normal respiratory effort and clear to auscultation bilaterally Cardio regular rate and regular rhythm Rate: other Other Details: Radial and carotid pulses are equal and symmetric GI normal to inspection, nondistended, normoactive bowel sounds, non-tender, non-distended and no masses GI Narrative: No voluntary guarding or rigidity or pulsatile mass Auscultation: normoactive bowel sounds Palpation: soft Back/Spine Back/Spine Narrative: No bony deformity or step-off of the thoracic or lumbar spine no midline tenderness to palpation Extremity normal to inspection Extremity Narrative: Pelvis is stable there is no shortening or external rotation of either lower extremity Patient can move all extremities without difficulty Neuro oriented x3, CN's II-XII intact bilaterally and no sensory deficits noted Neuro Narrative: GCS of 15 Cranial nerves II through XII are grossly intact there are no focal neurologic deficits No pronator drift no dysmetria no truncal ataxia NIH stroke scale score of 0 No nystagmus noted Sensorium / Orientation: alert Motor Exam: strength 5/5 throughout Psych mental status grossly normal Skin Skin Narrative: Laceration to the occipital portion of the skull is documented above MDM MDM MDM Narrative Medical decision making narrative: Patient arrived to the ER awake and alert with stable vitals and a nonfocal neurologic exam. He reported dizziness after standing and did take 0.8 mg of Flomax this evening. As he sustained a laceration to the occipital portion of the scalp and has syncope there is concern for traumatic subarachnoid or subdural hemorrhage. There is concern for cervical compression fracture versus spondylolisthesis. There is concern for acute coronary syndrome versus cardiac dysrhythmia versus acute blood loss anemia versus electrolyte abnormality or acute kidney injury. Basic blood work was obtained and reveals no clinically significant findings. Head CT revealed no acute signs of trauma and cervical spine CT showed degenerative changes without acute fracture. The patient's EKGs were sent to the psychologist military personnel on-call Dr. Rico as there was concern for potential cardiac dysrhythmia versus cardiac block. He reviewed the EKGs and believes they are sinus rhythm with persistent left bundle and occasional PVC and first-degree block. This correlates more with his physical exam is his heart sounds regular rate and rhythm on exam. After receiving IV hydration the patient was able to stand and ambulate without any dizziness or unsteady gait or repeat syncope. Therefore at this time as imaging studies rule out underlying brain or cervical trauma he does not have signs of acute kidney injury [place] abnormality acute blood loss anemia cardiac dysrhythmia or acute coronary syndrome I do not feel there is need for admission especially as his symptoms have resolved and he is able to ambulate. Therefore the patient had his wound sutured as documented below and is otherwise safe for discharge The patient's scalp laceration was cleaned with chlorhexidine. The area was anesthetized with 6 mL of 2% lidocaine with epinephrine in local fashion. The wound was copiously irrigated with normal saline. Then ten 3-0 Ethilon sutures were placed in simple interrupted fashion bring the wound together well with good approximation. Patient tolerated procedure well without complication History & Record Review Discussion w/independent historian: Patient and Significant other Lab Data Attestation: I reviewed the patient's lab results. Labs: Laboratory Results - last 24 hr 08/20/24 00:47 WBC 9.0 RBC 4.78 Hgb 13.3 Hct 40.3 MCV 84.3 MCH 27.8 MCHC 33.0 RDW Std Deviation 42.9 RDW Coeff of Lesvia 13.9 Plt Count 198 MPV 10.3 Immature Gran % (Auto) 0.300 Neut % (Auto) 51.7 Lymph % (Auto) 35.7 [place] % (Auto) 8.9 Eos % (Auto) 2.7 Baso % (Auto) 0.7 Absolute Neuts (auto) 4.7 Absolute Lymphs (auto) 3.22 Nucleated RBC % 0 PT 13.4 INR 1.0 APTT 23.3 L Sodium 138 Potassium 4.0 Chloride 107 Carbon Dioxide 24.0 Anion Gap 7 BUN 25 H Creatinine 1.30 Estim Creat Clear Calc 48.35 Est GFR (MDRD) Af Amer 69 Est GFR (MDRD) Non-Af 57 L BUN/Creatinine Ratio 19.2 Glucose 212 H Calcium 8.6 Magnesium 1.9 Troponin I High Sens 13 TSH 8.770 H Radiography Diagnostic Testing: Clinical Impression(s) from Imaging Studies Brain CT 08/20/24 00:42 IMPRESSION: 1. Very mild atrophy. 2. Minimal maxillary sinus mucosal thickening. 3. No skull fracture or acute intracranial abnormality. Electronically Signed: Anish Harp MD at 1:37 EST , Pelvis X-Ray 08/20/24 00:42 IMPRESSION: No acute fracture or dislocation. Electronically Signed: Anish Harp MD at 1:32 EST , Cervical Spine CT 08/20/24 00:43 IMPRESSION: Extensive cervical degenerative changes. No acute fracture or traumatic subluxation. Electronically Signed: Anish Harp MD at 1:44 EST , Chest X-Ray 08/20/24 00:55 IMPRESSION: No radiographic evidence of acute cardiopulmonary disease. Electronically Signed: Anish Harp MD at 1:33 EST , 1 view pelvis x-ray as interpreted by the emergency medicine physician reveals no acute fracture or dislocation Chest x-ray as interpreted by the emergency medicine physician reveals no acute infiltrate pneumothorax or pleural effusion Discharge Plan Triage Chief Complaint: Syncope ED Provider: Anselmo Trevino Dx/Rx/DC Orders Clinical Impression: Laceration of scalp, Syncope, Head injury, Hypertension, GERD (gastroesophageal reflux disease), BPH (benign prostatic hyperplasia) Instructions: Causes of Syncope, ED Head Injury (Adult), ED Laceration Scalp Stitches or [place] Prescriptions: No Action atorvastatin 80 mg tablet 80 mg PO DAILY valsartan [Diovan] 160 mg tablet 160 mg PO DAILY omeprazole 20 mg capsule,delayed release(DR/EC) 20 mg PO DAILY metformin 1,000 mg tablet 1,000 mg PO BID glimepiride 4 mg tablet 4 mg PO DAILY multivitamin [Daily Value] Tablet 1 tab PO DAILY tamsulosin 0.4 mg capsule 0.4 mg PO BID liraglutide 0.6 mg/0.1 mL (18 mg/3 mL) pen injector 1.2 mg subcut DAILY Skyrizi 150 mg/mL syringe 150 mg subcut .COMPLEX Rx Instructions: 150 mg subcutaneously EVERY 3 MONTHS; omega-3 fatty acids [Super Lemitar-3] 1,000 mg capsule 1,000 mg PO DAILY pioglitazone 45 mg tablet 45 mg PO DAILY Ozempic 0.25 mg or 0.5 mg (2 mg/3 mL) pen injector 0.25 mg subcut QWEEK Rx Instructions: for 4 weeks ciclopirox-nail lacquer removr 8 % kit 1 ea topical DAILY Primary Care Provider: Anamaria Szymanski Referrals: Anamaria Szymanski, [employer] [Primary Care Provider] - Activity Restrictions/Additional Instructions: Please reduce your Flomax to 1 pill in the evening. Keep yourself well-hydrated. See your family doctor or return to the ER in approximately 10 days for suture removal. If you have any further concerns or worsening of symptoms please return for repeat evaluation Print Language: Kosovan Disposition Disposition: Home, Self Care Discharge Date/Time: 08/20/24 02:48
[2024-08-20 00:53] LABS: Absolute Lymphocyte Count 3.22 X10^3/uL (0.83-4.51); Absolute Neutrophil Count 4.7 X10^3/uL (2.0-7.7); Basophil# 0.06 X10^3/uL; Basophil% 0.7 % (0-1); Eosinophil# 0.24 X10^3/uL; Eosinophils% 2.7 % (0-5); Hematocrit 40.3 % (40-54); Hemoglobin 13.3 g/dL (13.0-16.5); Lymphocyte # 3.22 X10^3/ul (0.83-4.51); Lymphocyte % 35.7 % (19-41); Mean Corpuscular Hgb 27.8 pg (27.0-32.0); Mean Corpuscular Volume 84.3 fL (80-94); Mean Platelet Vol. 10.3 fl (6.2-12.0); Monocyte% 8.9 % (0-10); NRBC Flagged by Analyzer 0 % (0-5); Neutrophil # 4.67 X10^3/uL (2.7-7.7); Neutrophil % 51.7 % (47-70); Platelet Count 198 K/mm3 (150-450); RBC Distribution Width CV 13.9 % (11.6-14.6); RBC Distribution Width SD 42.9 fl (35.1-43.9); Red Blood Count 4.78 M/mm3 (4.6-6.2)
--- NOTE | 2024-08-20 00:55 | RAD_ITS ---
EXAM: XR CHEST, 1 VIEW CLINICAL INDICATION: syncope TECHNIQUE: Frontal view of the chest. COMPARISON: Previous chest radiograph of 08/30/2023. FINDINGS: LUNGS AND PLEURAL SPACES: Unremarkable. No consolidation or edema. The bilateral pulmonary infiltrates seen on the prior study of 2022 have resolved. No pneumothorax. No effusion. HEART: Unremarkable. Cardiac silhouette not enlarged. Normal pulmonary vasculature. MEDIASTINUM: Stable mild elongation of the thoracic aorta. Trachea is midline. BONES/JOINTS: Thoracic degenerative spurring. No acute fracture. SOFT TISSUES: Unremarkable. RAD/Chest 1 View (Portable) IMPRESSION: No radiographic evidence of acute cardiopulmonary disease. Electronically Signed: Anish Harp MD at 1:33 EST ,
[2024-08-20 01:14] VITALS: BP 122/65; PULSE 77; RESP 18; O2SAT 99
[2024-08-20 01:18] LABS: Anion Gap 7 (5-15); BUN 25 mg/dL (7-18); BUN/Creat Ratio 19.2 RATIO (10-20); Calcium,Total 8.6 mg/dL (8.5-10.1); Chloride 107 mmol/L (98-107); EST Glomerular Filtration Rate 57 mL/min (>60); Est Glom Filt Rate - Afr Amer 69 mL/min (>60); Estimated Creatinine Clearance 48.35 ml/min; Glucose 212 mg/dL (74-106); Magnesium 1.9 mg/dL (1.6-2.6); Sodium Level 138 mmol/L (136-145); Troponin-I HS 13 pg/mL (3.0-78.0)
--- NOTE | 2024-08-20 01:44 | EKG12_ITS ---
Test Reason : SYNCOPE Blood Pressure : */* mmHG Vent. Rate : 76 BPM Atrial Rate : 80 BPM P-R Int : * ms QRS Dur : 140 ms QT Int : 458 ms P-R-T Axes : * -10 143 degrees QTcB Int : 515 ms Sinus rhythm with 1st degree A-V block Left bundle branch block Abnormal ECG Confirmed by CARRIE KENNEY, BONNIE ([id number]), health editor PARISA MARTINEZ ([id number]) on 08/23/2024 1:41:18 P M Referred By: BISHNU Confirmed By: BONNIE BUTLER MD
[2024-08-20 02:00] VITALS: BP 125/75; PULSE 72; RESP 15; O2SAT 98
[2024-08-20 02:23] LABS: Prothrombin Time (Protime)PT. 13.4 SECONDS (11.7-14.9)
[2024-08-20 02:24] LABS: Partial Thromboplast Time 23.3 Seconds (24.1-36.2)
[2024-08-20] MEDS: 0.9% Normal Saline (1000mL) 1,000 ML 999 ML IV (02:30)
[2024-08-20] MEDS: Lidocaine 2% /Epi 1:100 (20ml) 20 ML VIAL INFILT (02:40)
[2024-08-20 02:48] VITALS: BP 125/75; PULSE 72; RESP 15; TEMP 36.4; O2SAT 98
== END 2024-08-20 02:48 | disposition home or self-care (01) ==
PROVIDERS: Emergency Provider Emergency Medicine; PCP Nurse Practitioner Family; Visit Provider Emergency Medicine
DX: S01.01XA Laceration without foreign body of scalp, initial encounter (principal); E11.9 Type 2 diabetes mellitus without complications; R55 Syncope and collapse; W19.XXXA Unspecified fall, initial encounter; I10 Essential (primary) hypertension; I44.0 Atrioventricular block, first degree; I44.7 Left bundle-branch block, unspecified; I49.3 Ventricular premature depolarization; K21.9 Gastro-esophageal reflux disease without esophagitis; N40.0 Benign prostatic hyperplasia without lower urinary tract symptoms; D68.51 Activated protein C resistance; Z79.84 Long term (current) use of oral hypoglycemic drugs; Z79.899 Other long term (current) drug therapy; Z91.148 Patient's other noncompliance with medication regimen for other reason
CPT/HCPCS: 12002; 70450; 71045; 72125; 72170; 80048; 83735; 84443; 84484; 85025; 85610; 85730; 93005; 96360; 99285; A4216

== ENCOUNTER → 2025-01-11 | Outpatient (CLI) | payer MEDICARE, OTHER, SELFPAY ==
--- NOTE | 2025-01-11 11:05 | RAD_ITS ---
PROCEDURE: HIP, UNI W/ PELVIS 2-3 VIEWS 01/11/2025 REASON FOR EXAM: NON-RADIOGRAPHIC AXIAL SPONDYLOARTHRITIS OF LUMBOSACRAL REGION TECHNIQUE: AP pelvis and two views right hip, 3 total images COMPARISON: 08/20/2024 FINDINGS: No fracture or dislocation. Symmetric appearing SI joints and pubic symphysis appear within limits. The joint spaces appear within limits. Mild lateral acetabular osteophyte formation. RAD/HIP, UNI W/ Pelvis 2-3 Views IMPRESSION: Mild right hip osteoarthrosis. Reading Location: [id number]
--- NOTE | 2025-01-11 11:15 | RAD_ITS ---
PROCEDURE: L/S SPINE MIN 4 VIEWS 01/11/2025 REASON FOR EXAM: NON-RADIOGRAPHIC AXIAL SPONDYLOARTHRITIS OF LUMBOSACRAL REGION TECHNIQUE: Four views; AP, bilateral oblique and 2 laterals, 5 total images COMPARISON: None available FINDINGS: 5 [id number] lumbar vertebral body types identified. No fracture or malalignment. No spondylolysis identified. Large flowing anterior osteophyte formation T12-L1 and L1-2 L1-2 moderate disc space narrowing and degenerative endplate changes L2-3 mild disc space narrowing and degenerative endplate changes L3-4 mild disc space narrowing L4-5 [id number] disc space narrowing Lower lumbar facet hypertrophic changes with suggestion of foraminal narrowing L1-2, L4-5 and L5-S1. Atherosclerotic changes abdominal aorta RAD/L/S Spine Min 4 Views IMPRESSION: Multilevel spondylosis/discogenic change as above. Reading Location: [id number]
== END | disposition home or self-care (01) ==
LOC: RAD 11:03
PROVIDERS: PCP Family Medicine; Referring Provider Chiropractor; Visit Provider Chiropractor
DX: M45.A7 Non-radiographic axial spondyloarthritis of lumbosacral region (principal); M45.A4 Non-radiographic axial spondyloarthritis of thoracic region
CPT/HCPCS: 72110; 73502

== ENCOUNTER → 2025-08-24 | Outpatient (CLI) | payer MEDICARE, OTHER, SELFPAY ==
[2025-08-31 09:07] LABS: QNTFERON TB Mitogen Value > 10.00 IU/mL (.); QNTFERON TB Nil Value 0.30 IU/mL (.); QNTFERON TB1+ Ag Value 0.14 IU/mL (.); QNTFERON TB2+ Ag Value 0.11 IU/mL (.); QNTIFERON TB Positive Criteria Negative (Negative)
== END | disposition home or self-care (01) ==
LOC: MTLAB 16:14
PROVIDERS: PCP Family Medicine; Referring Provider Physician Assistant Medical; Visit Provider Physician Assistant Medical
DX: L40.0 Psoriasis vulgaris (principal)
CPT/HCPCS: 36415; 86480